=== PATIENT | female | born 1975 | race American Indian/Alaskan Native ===

== ENCOUNTER 2016-09-06 11:29 | Outpatient (CLI) | payer MEDICAID ==
--- NOTE | 2016-09-06 13:24 | XRay Report ---
LEFT SHOULDER: History: Shoulder pain, rotator cuff tear. Routine views demonstrate normal bony and soft tissue structures with normal joint alignment of the shoulder. IMPRESSION: Normal study.
--- NOTE | 2016-09-06 14:43 | XRay Report ---
Lumbar spine 4 views: History: Radiculopathy. Findings: Normal height of vertebral bodies and intervertebral discs. Normal articular surfaces. No fracture. No soft tissue calcification. Impression: No definite bony or articular abnormality lumbar spine.
== END 2016-09-06 11:30 | disposition home or self-care (01) ==
LOC: XRAY 11:29
PROVIDERS: ATTEND Physical Medicine & Rehabilitation Pain Medicine
DX: M54.16 Radiculopathy, lumbar region (principal); M75.102 Unspecified rotator cuff tear or rupture of left shoulder, not specified as traumatic
CPT/HCPCS: 72110

== ENCOUNTER 2017-03-13 23:23 | Emergency (ER) | payer MEDICAID ==
[2017-03-14 00:51] LABS: Basophils % (Auto) 0.4 % (0.0-1.8); Eosinophils % (Auto) 0.3 % (0.0-4.3); Hematocrit 32.9 % (30.3-42.9); Hemoglobin 10.5 gm/dl (10.1-14.3); Mean Corpuscular HGB Conc 32 % (30-34); Mean Corpuscular Hemoglobin 27 pg (28-32); Mean Corpuscular Volume 83 fl (79-97); Platelet Count 323 K/mm3 (140-440); Red Blood Count 3.96 M/mm3 (3.65-5.03); Red Cell Distribution Width 17.8 % (13.2-15.2); White Blood Count 9.1 K/mm3 (4.5-11.0)
[2017-03-14 01:02] LABS: Urine Drugs of Abuse Note Disclamer
[2017-03-14 01:06] LABS: Anion Gap 20 mmol/L; BUN/Creatinine Ratio 14.28; Blood Urea Nitrogen 10 mg/dL (7-17); Calcium 9.6 mg/dL (8.4-10.2); Carbon Dioxide 23 mmol/L (22-30); Chloride 100.9 mmol/L (98-107); Glucose 93 mg/dL (65-100); Potassium 3.7 mmol/L (3.6-5.0); Sodium 140 mmol/L (137-145)
[2017-03-14] MEDS ORDERED: VALIUM PO ONE (01:12)
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
[2017-03-14 01:27] LABS: Bilirubin,Urine SM (Negative); Blood,Urine NEG (Negative); Ketones,Urine TR mg/dL (Negative); Leukocyte Esterase,Urine NEG (Negative); Mucus,Urine 2+ /HPF; Nitrite,Urine NEG (Negative); Urobilinogen,Urine < 2.0 mg/dL (<2.0)
[2017-03-14 01:54] VITALS: BP 122/70
== END 2017-03-14 01:53 | disposition home or self-care (01) ==
LOC: ED 23:23
DX: F41.0 Panic disorder [episodic paroxysmal anxiety] (principal); R56.9 Unspecified convulsions; F32.9 Major depressive disorder, single episode, unspecified; D64.9 Anemia, unspecified; Z88.2 Allergy status to sulfonamides; Z88.8 Allergy status to other drugs, medicaments and biological substances
CPT/HCPCS: 36415; 80048; 80307; 81001; 82550; 85025; 99284; G0480; 80320

== ENCOUNTER 2018-02-23 13:53 | Emergency (ER) | payer MEDICAID ==
[2018-02-23] MEDS ORDERED: NACL 0.9% 1000 ML 1,000 ML IV ONE (15:46)
[2018-02-23 15:54] LABS: HCG Qualitative,Urine Negative (Negative)
[2018-02-23 15:57] LABS: Bilirubin,Urine NEG (Negative); Blood,Urine NEG (Negative); Color,Urine Yellow (Yellow); Mucus,Urine 1+ /HPF; Protein,Urine <15 mg/dL mg/dL (Negative); Urobilinogen,Urine < 2.0 mg/dL (<2.0)
[2018-02-23 16:03] LABS: Amphetamine Screen,Urine PRESUMPTIVE NEGATIVE; Cannabinoid Screen,Urine PRESUMPTIVE NEGATIVE; Cocaine Screen,Urine PRESUMPTIVE NEGATIVE; Methadone Screen,Urine PRESUMPTIVE NEGATIVE; Opiate Screen,Urine PRESUMPTIVE NEGATIVE
[2018-02-23 16:09] LABS: Benzodiazepines Screen,Urine PRESUMPTIVE POSITIVE
[2018-02-23 16:11] LABS: Hematocrit 30.1 % (30.3-42.9); Hemoglobin 9.4 gm/dl (10.1-14.3); Mean Corpuscular HGB Conc 31 % (30-34); Mean Corpuscular Volume 81 fl (79-97); Red Blood Count 3.71 M/mm3 (3.65-5.03)
[2018-02-23 16:15] LABS: Mean Corpuscular Hemoglobin 25 pg (28-32); Platelet Count 202 K/mm3 (140-440)
[2018-02-23 16:22] LABS: INR 0.97 (0.87-1.13)
[2018-02-23] MEDS ORDERED: MOTRIN PO ONE (16:25)
[2018-02-23 16:26] LABS: Alanine Aminotransferase 9 units/L (7-56); Albumin 4.6 g/dL (3.9-5); BUN/Creatinine Ratio 11; Blood Urea Nitrogen 8 mg/dL (7-17); Calcium 9.3 mg/dL (8.4-10.2); Hemolysis Index 6
[2018-02-23] MEDS ORDERED: K-DUR PO ONE (16:30)
[2018-02-23] MEDS ORDERED: TYLENOL PO ONE (16:42)
--- NOTE | 2018-02-23 17:11 | Emergency Department Report ---
ED General Adult HPI - General Chief complaint: Seizure Stated complaint: 5x SEIZURES BACK TO BACK Time Seen by Provider: 02/23/18 15:46 Source: patient, EMS Mode of arrival: Stretcher Limitations: No Limitations - History of Present Illness Initial comments: Ms Ibarra is a 42 year-old woman with PMH of lupus, lupus cerebritis, epilepsy who presents via EMS after reported seizure. per patient and her daughter, she had witnessed shaking episode at home. Per patient, she says she had five seizures. She reports left shoulder, left hip, coccyx and neck pain. Keeps asking for pain medication. Asking for benzodiazepines as well. I informed her this was not indicated. She reports being on trileptal for seizures. Has neurologist at [facility]. She later told me her neurologist is at [facility]. She has a pain management doctor as well. Per review of [facility] [facility] has 60 1mg xanax filled on 01/29 and 120 10mg oxycodone filled on 02/06. Severity scale (0 -10): 10 - Related Data Home Medications Medication Instructions Recorded Confirmed Last Taken ALPRAZolam [Alprazolam] 1 mg PO BID 03/14/17 03/14/17 Unknown Mirtazapine 15 mg PO QDAY 03/14/17 03/14/17 Unknown OXcarbazepine [Trileptal] 1,200 mg PO QHS 03/14/17 03/14/17 Unknown OXcarbazepine [Trileptal] 900 mg PO BID 03/14/17 03/14/17 Unknown Oxycodone HCl/Acetaminophen 1 each PO Q6HR PRN 03/14/17 03/14/17 Unknown [Percocet 10/325 mg] Venlafaxine HCl [Effexor Xr] 150 mg PO QDAY 03/14/17 03/14/17 Unknown predniSONE [Deltasone] 20 mg PO BID 03/14/17 03/14/17 Unknown Allergies Allergy/AdvReac Type Severity Reaction Status Date / Time Iodinated Contrast- Oral and Allergy Anaphylaxis Verified 03/03/15 14:31 IV Dye [Iodinated Contrast Media - IV Dye] NSAIDS (Non-Steroidal Allergy Unknown Verified 02/23/18 17:08 Anti-Inflamma Sulfa (Sulfonamide Allergy Hives Verified 03/03/15 14:31 Antibiotics) hydroxychloroquine sulfate AdvReac TEMP. Verified 03/03/15 14:31 [From Plaquenil] BLINDNESS ED Review of Systems ROS: Stated complaint: 5x SEIZURES BACK TO BACK Other details as noted in HPI Comment: All other systems reviewed and negative ED Past Medical Hx - Past Medical History Previous Medical History?: Yes Hx Renal Disease: Yes Hx Seizures: Yes Hx Psychiatric Treatment: Yes (DEPRESSION/INSOMNIA) Additional medical history: LUPUS. LUMBAR HERNIATION. 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 ANEMIA. INSOMNIA, ANXIETY - Surgical History Past Surgical History?: Yes Hx Cholecystectomy: Yes Additional Surgical History: TUBAL LIGATION. LUNG BIOPSY - Social History Smoking Status: Former Smoker Substance Use Type: Prescribed - Medications Home Medications: Home Medications Medication Instructions Recorded Confirmed Last Taken Type ALPRAZolam [Alprazolam] 1 mg PO BID 03/14/17 03/14/17 Unknown History Mirtazapine 15 mg PO QDAY 03/14/17 03/14/17 Unknown History OXcarbazepine [Trileptal] 1,200 mg PO QHS 03/14/17 03/14/17 Unknown History OXcarbazepine [Trileptal] 900 mg PO BID 03/14/17 03/14/17 Unknown History Oxycodone HCl/Acetaminophen 1 each PO Q6HR PRN 03/14/17 03/14/17 Unknown History [Percocet 10/325 mg] Venlafaxine HCl [Effexor Xr] 150 mg PO QDAY 03/14/17 03/14/17 Unknown History predniSONE [Deltasone] 20 mg PO BID 03/14/17 03/14/17 Unknown History ED Physical Exam - General Limitations: No Limitations General appearance: alert, anxious - Head Head exam: Present: atraumatic, normocephalic - Eye Eye exam: Present: normal appearance, PERRL, EOMI. Absent: nystagmus - ENT ENT exam: Present: normal exam, mucous membranes moist - Neck Neck exam: Present: normal inspection, tenderness, full ROM, other (diffuse cervical spinal ttp. no bruising, no swelling. full ROM). Absent: meningismus - Respiratory Respiratory exam: Present: normal lung sounds bilaterally. Absent: respiratory distress, chest wall tenderness, accessory muscle use - Cardiovascular Cardiovascular Exam: Present: regular rate, normal rhythm - GI/Abdominal GI/Abdominal exam: Present: soft. Absent: distended, tenderness, guarding - Extremities Exam Extremities exam: Present: other (Full ROM wrists, elbows, shoulders without pain. Pain with ROM of both hips, no reduction of ROM. Full ROM knees, ankles. 2 + radial and DP pulses. ) - Back Exam Back exam: Present: normal inspection. Absent: tenderness, CVA tenderness (R), CVA tenderness (L), paraspinal tenderness, vertebral tenderness - Neurological Exam Neurological exam: Present: alert, oriented X3, CN II-XII intact, other ( cerebellar exam normal. visual almonte intact bilaterally. ). Absent: motor sensory deficit - Psychiatric Psychiatric exam: Present: agitated, other (combative, argumentative) - Skin Skin exam: Present: warm, dry, intact ED Course Vital Signs 02/23/18 02/23/18 15:35 17:18 Temperature 98 F Pulse Rate 81 Respiratory 22 18 Rate Blood Pressure 115/75 O2 Sat by Pulse 100 Oximetry ED Medical Decision Making - Lab Data Result diagrams: 02/23/18 15:55 02/23/18 16:05 Lab Results 02/23/18 02/23/18 02/23/18 Range/Units 15:44 15:44 15:55 WBC 8.3 (4.5-11.0) K/mm3 RBC 3.71 (3.65-5.03) M/mm3 Hgb 9.4 L (10.1-14.3) gm/dl Hct 30.1 L (30.3-42.9) % MCV 81 (79-97) fl MCH 25 L (28-32) pg MCHC 31 (30-34) % RDW 18.0 H (13.2-15.2) % Plt Count 202 (140-440) K/mm3 PT (12.2-14.9) Sec. INR (0.87-1.13) Sodium (137-145) mmol/L Potassium (3.6-5.0) mmol/L Chloride (98-107) mmol/L Carbon Dioxide (22-30) mmol/L Anion Gap mmol/L BUN (7-17) mg/dL Creatinine (0.7-1.2) mg/dL Estimated GFR ml/min BUN/Creatinine Ratio % Glucose (65-100) mg/dL Calcium (8.4-10.2) mg/dL Total Bilirubin (0.1-1.2) mg/dL AST (5-40) units/L ALT (7-56) units/L Alkaline Phosphatase (35-129) units/L Total Creatine Kinase (30-135) units/L Total Protein (6.3-8.2) g/dL Albumin (3.9-5) g/dL Albumin/Globulin Ratio % Urine Color Yellow (Yellow) Urine Turbidity Clear (Clear) Urine pH 6.0 (5.0-7.0) Ur Specific Gallagher 1.014 (1.003-1.030) Urine Protein <15 mg/dl (Negative) mg/dL Urine Glucose (UA) Neg (Negative) mg/dL Urine Ketones Neg (Negative) mg/dL Urine Blood Neg (Negative) Urine Nitrite Neg (Negative) Ur Reducing Substances Not Reportable Urine Bilirubin Neg (Negative) Urine Ictotest Not Reportable Urine Urobilinogen < 2.0 (<2.0) mg/dL Ur Leukocyte Esterase Tr (Negative) Urine WBC (Auto) 2.0 (0.0-6.0) /HPF Urine RBC (Auto) 2.0 (0.0-6.0) /HPF U Epithel Cells (Auto) 4.0 (0-13.0) /HPF Urine Mucus 1+ /HPF Urine HCG, Qual Negative (Negative) Urine Opiates Screen Presumptive negative Urine Methadone Screen Presumptive negative Ur Barbiturates Screen Presumptive negative Ur Phencyclidine Scrn Presumptive negative Ur Amphetamines Screen Presumptive negative U Benzodiazepines Scrn Presumptive positive Urine Cocaine Screen Presumptive negative U Marijuana (THC) Screen Presumptive negative Drugs of Abuse Note Disclamer Plasma/Serum Alcohol (0-0.07) % 02/23/18 02/23/18 02/23/18 Range/Units 15:55 16:05 16:05 WBC (4.5-11.0) K/mm3 RBC (3.65-5.03) M/mm3 Hgb (10.1-14.3) gm/dl Hct (30.3-42.9) % MCV (79-97) fl MCH (28-32) pg MCHC (30-34) % RDW (13.2-15.2) % Plt Count (140-440) K/mm3 PT 13.4 (12.2-14.9) Sec. INR 0.97 (0.87-1.13) Sodium 140 (137-145) mmol/L Potassium 3.3 L (3.6-5.0) mmol/L Chloride 102.1 (98-107) mmol/L Carbon Dioxide 22 (22-30) mmol/L Anion Gap 19 mmol/L BUN 8 (7-17) mg/dL Creatinine 0.7 (0.7-1.2) mg/dL Estimated GFR > 60 ml/min BUN/Creatinine Ratio 11 % Glucose 98 (65-100) mg/dL Calcium 9.3 (8.4-10.2) mg/dL Total Bilirubin 0.40 (0.1-1.2) mg/dL AST 13 (5-40) units/L ALT 9 (7-56) units/L Alkaline Phosphatase 65 (35-129) units/L Total Creatine Kinase 102 (30-135) units/L Total Protein 7.8 (6.3-8.2) g/dL Albumin 4.6 (3.9-5) g/dL Albumin/Globulin Ratio 1.4 % Urine Color (Yellow) Urine Turbidity (Clear) Urine pH (5.0-7.0) Ur Specific Gallagher (1.003-1.030) Urine Protein (Negative) mg/dL Urine Glucose (UA) (Negative) mg/dL Urine Ketones (Negative) mg/dL Urine Blood (Negative) Urine Nitrite (Negative) Ur Reducing Substances Urine Bilirubin (Negative) Urine Ictotest Urine Urobilinogen (<2.0) mg/dL Ur Leukocyte Esterase (Negative) Urine WBC (Auto) (0.0-6.0) /HPF Urine RBC (Auto) (0.0-6.0) /HPF U Epithel Cells (Auto) (0-13.0) /HPF Urine Mucus /HPF Urine HCG, Qual (Negative) Urine Opiates Screen Urine Methadone Screen Ur Barbiturates Screen Ur Phencyclidine Scrn Ur Amphetamines Screen U Benzodiazepines Scrn Urine Cocaine Screen U Marijuana (THC) Screen Drugs of Abuse Note Plasma/Serum Alcohol (0-0.07) % 02/23/18 Range/Units 16:05 WBC (4.5-11.0) K/mm3 RBC (3.65-5.03) M/mm3 Hgb (10.1-14.3) gm/dl Hct (30.3-42.9) % MCV (79-97) fl MCH (28-32) pg MCHC (30-34) % RDW (13.2-15.2) % Plt Count (140-440) K/mm3 PT (12.2-14.9) Sec. INR (0.87-1.13) Sodium (137-145) mmol/L Potassium (3.6-5.0) mmol/L Chloride (98-107) mmol/L Carbon Dioxide (22-30) mmol/L Anion Gap mmol/L BUN (7-17) mg/dL Creatinine (0.7-1.2) mg/dL Estimated GFR ml/min BUN/Creatinine Ratio % Glucose (65-100) mg/dL Calcium (8.4-10.2) mg/dL Total Bilirubin (0.1-1.2) mg/dL AST (5-40) units/L ALT (7-56) units/L Alkaline Phosphatase (35-129) units/L Total Creatine Kinase (30-135) units/L Total Protein (6.3-8.2) g/dL Albumin (3.9-5) g/dL Albumin/Globulin Ratio % Urine Color (Yellow) Urine Turbidity (Clear) Urine pH (5.0-7.0) Ur Specific Gallagher (1.003-1.030) Urine Protein (Negative) mg/dL Urine Glucose (UA) (Negative) mg/dL Urine Ketones (Negative) mg/dL Urine Blood (Negative) Urine Nitrite (Negative) Ur Reducing Substances Urine Bilirubin (Negative) Urine Ictotest Urine Urobilinogen (<2.0) mg/dL Ur Leukocyte Esterase (Negative) Urine WBC (Auto) (0.0-6.0) /HPF Urine RBC (Auto) (0.0-6.0) /HPF U Epithel Cells (Auto) (0-13.0) /HPF Urine Mucus /HPF Urine HCG, Qual (Negative) Urine Opiates Screen Urine Methadone Screen Ur Barbiturates Screen Ur Phencyclidine Scrn Ur Amphetamines Screen U Benzodiazepines Scrn Urine Cocaine Screen U Marijuana (THC) Screen Drugs of Abuse Note Plasma/Serum Alcohol < 0.01 (0-0.07) % - Medical Decision Making Ms Ibarra is a 42 year-old woman who presents after reported seizure. Patient unable to tell me what happened, daughter says she had shaking episode for 1 minute and then 20 minutes was less responsive. patient then tells she she had 5 seizures. She is argumentative and uncooperative to exam. Keeps accusing staff of racial discrimination as we have not yet given her benzodiazepines or opiates. Exam with mild cervical spinal ttp, bilateral hip and coccyx tenderness. Neuro intact. Lab eval with mild hypoK. normal CK. Low suspicion of seizure. she has recorded me against hospital police and law. She is threatening towards staff and using foul language. She is threatening legal action if we do not give her pain medication. I have offered tylenol. Initially , ibuprofen was ordered, but she has an allergy that was later added into the chart. Ibuprofen was not given. I do not believe a CT scan is warranted. Story is inconsistent, normal neurologic exam andwith normal CK, i have a low suspicion she had a seizure or other intracranial abnormality. known seizure d/o , on trileptal. Have ordered EKG as well to eval for convulsive syncope. patient has signed out against medical advice. she is competent to make this decision in my opinion. understands risks of leaving. paperwork signed and in chart. Work-up has not been completed. Critical care attestation.: If time is entered above; I have spent that time in minutes in the direct care of this critically ill patient, excluding procedure time. ED Disposition Clinical Impression: Shaking Disposition: DC-07 LEFT AGAINST MED ADVICE Is pt being admited?: No Condition: Stable Instructions: Epilepsy (ED) Referrals: PRIMARY CARE, [Primary Care Provider] - 3-5 Days
[2018-02-23 17:49] VITALS: BP 139/57
== END 2018-02-23 17:49 | disposition left against medical advice (07) ==
LOC: ED 13:53
DX: R56.9 Unspecified convulsions (principal); M25.512 Pain in left shoulder; M25.552 Pain in left hip; M54.2 Cervicalgia; Z87.891 Personal history of nicotine dependence; Z90.49 Acquired absence of other specified parts of digestive tract; Z90.710 Acquired absence of both cervix and uterus; Z88.2 Allergy status to sulfonamides; Z88.8 Allergy status to other drugs, medicaments and biological substances; Z91.041 Radiographic dye allergy status
CPT/HCPCS: 36415; 80053; 80307; 81001; 81025; 82550; 85027; 85610; 99284; G0480; 80320

== ENCOUNTER 2019-04-02 01:51 | Observation (INO) | payer MEDICAID ==
[2019-04-02] MEDS ORDERED: NACL 0.9% 1000 ML 1,000 ML ONE (02:10)
[2019-04-02] MEDS ORDERED: NACL 0.9% 1000 ML 1,000 ML IV ONE ×3 (02:21→13:00)
[2019-04-02 03:03] LABS: Basophils # (Auto) 0.1 K/mm3 (0.0-0.1); Basophils % (Auto) 0.8 % (0.0-1.8); Eosinophils # (Auto) 0.1 K/mm3 (0.0-0.4); Eosinophils % (Auto) 1.1 % (0.0-4.3); Hematocrit 27.8 % (30.3-42.9); Hemoglobin 8.8 gm/dl (10.1-14.3); Lymphocytes # (Auto) 1.6 K/mm3 (1.2-5.4); Lymphocytes % (Auto) 21.1 % (13.4-35.0); Mean Corpuscular HGB Conc 32 % (30-34); Mean Corpuscular Volume 82 fl (79-97); Monocytes # (Auto) 0.7 K/mm3 (0.0-0.8); Monocytes % (Auto) 9.2 % (0.0-7.3); Platelet Count 384 K/mm3 (140-440); Red Blood Count 3.38 M/mm3 (3.65-5.03); Red Cell Distribution Width 16.4 % (13.2-15.2)
[2019-04-02 03:41] LABS: Alanine Aminotransferase 15 units/L (7-56); Albumin 3.8 g/dL (3.9-5); BUN/Creatinine Ratio 14; Blood Urea Nitrogen 10 mg/dL (7-17); Calcium 8.6 mg/dL (8.4-10.2); Hemolysis Index 54
[2019-04-02] MEDS ORDERED: ZOFRAN IV ONE (05:10)
--- NOTE | 2019-04-02 05:12 | Emergency Department Report ---
History of Present Illness - General Chief Complaint: Altered Mental Status Stated Complaint: OVERDOSE Time Seen by Provider: 04/02/19 03:03 Source: EMS, RN notes reviewed, old records reviewed Mode of arrival: Stretcher Limitations: Altered Mental Status - History of Present Illness Initial Comments: 43-year-old female with past medical history of depression, lupus, seizures, anxiety, insomnia, and previous tubal ligation and cholecystectomy presents to the hospital with complaints of overdose. Patient took 4 Trileptal 300 mg pills at approximately 9 or 10 PM. It is unclear to time it was accidental or purposeful. Daughter found patient lethargic and stumbling in the house and therefore she called EMS. Upon arrival patient responds to verbal and tactile stimuli is only oriented to self and is drowsy. As per RN note: Spoke with [facility] at [place] [facility]. States to monitor CBC with platelets, CMP, acetaminophen, salicylate, blood alcohol levels. Potential for hyponatremia, n/v, abnormal vision, SURFACE [employer] depression, and seizure. States to treat seizures with benzos. Activated charcoal was not recommended - Related Data Home Medications Medication Instructions Recorded Confirmed Last Taken ALPRAZolam [Alprazolam] 1 mg PO BID 03/14/17 03/14/17 Unknown Mirtazapine 15 mg PO QDAY 03/14/17 03/14/17 Unknown OXcarbazepine [Trileptal] 1,200 mg PO QHS 03/14/17 03/14/17 Unknown OXcarbazepine [Trileptal] 900 mg PO BID 03/14/17 03/14/17 Unknown Oxycodone HCl/Acetaminophen 1 each PO Q6HR PRN 03/14/17 03/14/17 Unknown [Percocet 10/325 mg] Venlafaxine HCl [Effexor Xr] 150 mg PO QDAY 03/14/17 03/14/17 Unknown predniSONE [Deltasone] 20 mg PO BID 03/14/17 03/14/17 Unknown Allergies Allergy/AdvReac Type Severity Reaction Status Date / Time Iodinated Contrast- Oral and Allergy Anaphylaxis Verified 03/03/15 14:31 IV Dye [Iodinated Contrast Media - IV Dye] NSAIDS (Non-Steroidal Allergy Unknown Verified 02/23/18 17:08 Anti-Inflamma Sulfa (Sulfonamide Allergy Hives Verified 03/03/15 14:31 Antibiotics) hydroxychloroquine sulfate AdvReac TEMP. Verified 03/03/15 14:31 [From Plaquenil] BLINDNESS ED Review of Systems ROS: Stated complaint: OVERDOSE Other details as noted in HPI Comment: Unobtainable due to pts medical conditions ED Past Medical Hx - Past Medical History Previous Medical History?: Yes Hx Renal Disease: Yes Hx Seizures: Yes Hx Psychiatric Treatment: Yes (DEPRESSION/INSOMNIA) Additional medical history: LUPUS. LUMBAR HERNIATION. 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 ANEMIA. INSOMNIA, ANXIETY - Surgical History Hx Cholecystectomy: Yes Additional Surgical History: TUBAL LIGATION. LUNG BIOPSY - Social History Smoking Status: Never Smoker Substance Use Type: None - Medications Home Medications: Home Medications Medication Instructions Recorded Confirmed Last Taken Type ALPRAZolam [Alprazolam] 1 mg PO BID 03/14/17 03/14/17 Unknown History Mirtazapine 15 mg PO QDAY 03/14/17 03/14/17 Unknown History OXcarbazepine [Trileptal] 1,200 mg PO QHS 03/14/17 03/14/17 Unknown History OXcarbazepine [Trileptal] 900 mg PO BID 03/14/17 03/14/17 Unknown History Oxycodone HCl/Acetaminophen 1 each PO Q6HR PRN 03/14/17 03/14/17 Unknown History [Percocet 10/325 mg] Venlafaxine HCl [Effexor Xr] 150 mg PO QDAY 03/14/17 03/14/17 Unknown History predniSONE [Deltasone] 20 mg PO BID 03/14/17 03/14/17 Unknown History ED Physical Exam - General Limitations: Altered Mental Status - Other Other exam information: General: No acute distress Eyes: Normal appearance, pupils equal reactive to light, extraocular movements intact ENT: Normal oropharynx Neck: Normal appearance, no C-spine tenderness, no meningismus Chest: Clear to auscultation bilaterally, no wheezes, rales, or crackles Cardiovascular: Regular rate and rhythm Abdomen: Soft, nondistended, nontender, no rebound or guarding, normal bowel sounds Back: Normal inspection, nontender Extremity: Normal inspection, no deformity, full range of motion Neuro: Drowsy, responsive to tactile stimuli, oriented else. Moves all extremities equally without deficit. Sensation grossly intact Skin: No rash, once, or erythema ED Course Vital Signs 04/02/19 04/02/1919 02:08 02:17 02:30 Temperature 98.9 F Pulse Rate 94 H 96 H 97 H Respiratory 18 17 21 Rate Blood Pressure 96/49 93/48 96/48 O2 Sat by Pulse 97 95 97 Oximetry 04/02/19 04/02/19 04/02/19 03:00 03:15 03:30 Temperature Pulse Rate 93 H 88 88 Respiratory 24 15 22 Rate Blood Pressure 86/42 96/50 86/46 O2 Sat by Pulse 98 96 95 Oximetry 04/02/19 04/02/19 03:45 04:15 Temperature Pulse Rate 90 82 Respiratory 18 11 L Rate Blood Pressure 106/56 81/33 O2 Sat by Pulse 100 97 Oximetry - Reevaluation(s) Reevaluation #1: 04/02/19 05:12 BP improved after initial IV fluid bolus of normal saline. Patient began to vomit at this time there for Zofran 4 mg provided ED Medical Decision Making - Lab Data Result diagrams: 04/02/19 02:29 04/02/19 02:29 Lab Results 04/02/19 04/02/19 04/02/19 Range/Units 02:29 02:29 02:29 WBC 7.7 (4.5-11.0) K/mm3 RBC 3.38 L (3.65-5.03) M/mm3 Hgb 8.8 L (10.1-14.3) gm/dl Hct 27.8 L (30.3-42.9) % MCV 82 (79-97) fl MCH 26 L (28-32) pg MCHC 32 (30-34) % RDW 16.4 H (13.2-15.2) % Plt Count 384 (140-440) K/mm3 Lymph % (Auto) 21.1 (13.4-35.0) % [place] % (Auto) 9.2 H (0.0-7.3) % Eos % (Auto) 1.1 (0.0-4.3) % Baso % (Auto) 0.8 (0.0-1.8) % Lymph # 1.6 (1.2-5.4) K/mm3 [place] # 0.7 (0.0-0.8) K/mm3 Eos # 0.1 (0.0-0.4) K/mm3 Baso # 0.1 (0.0-0.1) K/mm3 Seg Neutrophils % 67.8 (40.0-70.0) % Seg Neutrophils # 5.2 (1.8-7.7) K/mm3 Sodium (137-145) mmol/L Potassium (3.6-5.0) mmol/L Chloride (98-107) mmol/L Carbon Dioxide (22-30) mmol/L Anion Gap mmol/L BUN (7-17) mg/dL Creatinine (0.7-1.2) mg/dL Estimated GFR ml/min BUN/Creatinine Ratio % Glucose (65-100) mg/dL Calcium (8.4-10.2) mg/dL Magnesium (1.7-2.3) mg/dL Total Bilirubin (0.1-1.2) mg/dL AST (5-40) units/L ALT (7-56) units/L Alkaline Phosphatase (35-129) units/L Total Protein (6.3-8.2) g/dL Albumin (3.9-5) g/dL Albumin/Globulin Ratio % Salicylates < 0.3 L (2.8-20.0) mg/dL Acetaminophen < 5.0 L (10.0-30.0) ug/mL Plasma/Serum Alcohol (0-0.07) % 04/02/19 04/02/19 04/02/19 Range/Units 02:29 02:29 02:29 WBC (4.5-11.0) K/mm3 RBC (3.65-5.03) M/mm3 Hgb (10.1-14.3) gm/dl Hct (30.3-42.9) % MCV (79-97) fl MCH (28-32) pg MCHC (30-34) % RDW (13.2-15.2) % Plt Count (140-440) K/mm3 Lymph % (Auto) (13.4-35.0) % [place] % (Auto) (0.0-7.3) % Eos % (Auto) (0.0-4.3) % Baso % (Auto) (0.0-1.8) % Lymph # (1.2-5.4) K/mm3 [place] # (0.0-0.8) K/mm3 Eos # (0.0-0.4) K/mm3 Baso # (0.0-0.1) K/mm3 Seg Neutrophils % (40.0-70.0) % Seg Neutrophils # (1.8-7.7) K/mm3 Sodium 142 (137-145) mmol/L Potassium 3.2 L (3.6-5.0) mmol/L Chloride 107.3 H (98-107) mmol/L Carbon Dioxide 20 L (22-30) mmol/L Anion Gap 18 mmol/L BUN 10 (7-17) mg/dL Creatinine 0.7 (0.7-1.2) mg/dL Estimated GFR > 60 ml/min BUN/Creatinine Ratio 14 % Glucose 122 H (65-100) mg/dL Calcium 8.6 (8.4-10.2) mg/dL Magnesium 2.00 (1.7-2.3) mg/dL Total Bilirubin 0.20 (0.1-1.2) mg/dL AST 24 (5-40) units/L ALT 15 (7-56) units/L Alkaline Phosphatase 57 (35-129) units/L Total Protein 7.0 (6.3-8.2) g/dL Albumin 3.8 L (3.9-5) g/dL Albumin/Globulin Ratio 1.2 % Salicylates (2.8-20.0) mg/dL Acetaminophen (10.0-30.0) ug/mL Plasma/Serum Alcohol < 0.01 (0-0.07) % - EKG Data -: EKG Interpreted by Nd EKG shows normal: sinus rhythm, axis (qrs 45), QRS complexes (qrsd 92), ST-T waves (no stemi/t inv) Rate: normal (90) - Medical Decision Making Pt took 4 Trileptal pills at 9 or 10 PM. At time is unclear if patient was intending to overdose sx in ed drowsy, n,v and hypotension bp improved with NS zofran for nausea pt remains drowsy without seizure activity plan to admit for further obs 1013 signed. - Differential Diagnosis overdose, suicidal, accidental overdose Critical Care Time: No Critical care attestation.: If time is entered above; I have spent that time in minutes in the direct care of this critically ill patient, excluding procedure time. ED Disposition Clinical Impression: Overdose, Lethargic Disposition: DC- OP ADMIT IP TO THIS HOSP Is pt being admited?: Yes Condition: Stable Time of Disposition: 05:12 (Dr olea/hosp)
[2019-04-02] MEDS ORDERED: ZOFRAN ONE (05:13)
[2019-04-02] MEDS ORDERED: SODIUM CHLORIDE FLUSH SYRINGE 10 ML IV PRN (05:58)
[2019-04-02] MEDS ORDERED: PERCOCET 5/325 PO PRN (05:58)
[2019-04-02] MEDS ORDERED: TYLENOL PO PRN (05:58)
[2019-04-02] MEDS ORDERED: KCL 40 MEQ in NACL 0.45% 500 ML IV SCH (06:00)
--- NOTE | 2019-04-02 06:00 | History and Physical Report ---
History of Present Illness Chief complaint: Brought in by daughter for ingesting too many pills at home History of present illness: 43-year-old woman who was brought in by her daughter after she was found lethargic and stumbling around the house. She had taken for Trileptal pills. It was unclear what her motivation to do so was at that time. In the ER patient is only drowsy, only responsive to verbal and tactile stimuli confused and only oriented to self. Patient received normal saline the ER after which she began to vomit just treated with antiemetics Past medical history; SLE, major depression, seizure disorder, anxiety, insomnia, lumbar disc herniation at C4 to C6, Past surgical history tubal ligation and cholecystectomy, lung biopsy next Social history; never smoker Family history; mood disorder Medications and Allergies Allergies Allergy/AdvReac Type Severity Reaction Status Date / Time Iodinated Contrast- Oral and Allergy Anaphylaxis Verified 03/03/15 14:31 IV Dye [Iodinated Contrast Media - IV Dye] NSAIDS (Non-Steroidal Allergy Unknown Verified 02/23/18 17:08 Anti-Inflamma Sulfa (Sulfonamide Allergy Hives Verified 03/03/15 14:31 Antibiotics) hydroxychloroquine sulfate AdvReac TEMP. Verified 03/03/15 14:31 [From Plaquenil] BLINDNESS Home Medications Medication Instructions Recorded Confirmed Last Taken Type ALPRAZolam [Alprazolam] 1 mg PO BID 03/14/17 03/14/17 Unknown History Mirtazapine 15 mg PO QDAY 03/14/17 03/14/17 Unknown History OXcarbazepine [Trileptal] 1,200 mg PO QHS 03/14/17 03/14/17 Unknown History OXcarbazepine [Trileptal] 900 mg PO BID 03/14/17 03/14/17 Unknown History Oxycodone HCl/Acetaminophen 1 each PO Q6HR PRN 03/14/17 03/14/17 Unknown History [Percocet 10/325 mg] Venlafaxine HCl [Effexor Xr] 150 mg PO QDAY 03/14/17 03/14/17 Unknown History predniSONE [Deltasone] 20 mg PO BID 03/14/17 03/14/17 Unknown History Active Meds: Active Medications Sodium Chloride (Nacl 0.9% 1000 Ml) 1,000 mls @ 999 mls/hr IV BOLUS ONE Stop: 04/02/19 06:10 Review of Systems Constitutional: fatigue Ears, nose, mouth and throat: no ear pain Cardiovascular: no chest pain Respiratory: no cough Gastrointestinal: no abdominal pain Genitourinary Female: no urinary frequency Rectal: no pain Musculoskeletal: no neck stiffness Integumentary: no rash Neurological: no head injury Psychiatric: no anxiety Endocrine: no cold intolerance Hematologic/Lymphatic: no easy bruising Allergic/Immunologic: no urticaria Exam - Constitutional Vitals: Temp Pulse Resp BP Pulse Ox 98.9 F 82 11 L 81/33 97 04/02/19 02:08 04/02/19 04:15 04/02/19 04:15 04/02/19 04:15 04/02/19 04:15 General appearance: Present: no acute distress, well-nourished - EENT Eyes: Present: PERRL ENT: hearing intact, clear oral mucosa - Neck Neck: Present: supple, normal ROM - Respiratory Respiratory effort: normal Respiratory: bilateral: CTA - Cardiovascular Heart Sounds: Present: S1 & S2. Absent: rub, click - Extremities Extremities: pulses symmetrical, No edema Peripheral Pulses: within normal limits - Abdominal General gastrointestinal: Present: soft, non-tender, non-distended, normal bowel sounds Female genitourinary: Present: normal - Integumentary Integumentary: Present: clear, warm, dry - Musculoskeletal Musculoskeletal: gait normal, strength equal bilaterally - Psychiatric Psychiatric: other (lethargic and somnolent) - Neurologic Neurologic: CNII-XII intact, moves all extremities Results - Labs CBC & Chem 7: 04/02/19 02:29 04/02/19 02:29 Labs: Laboratory Last Values WBC 7.7 K/mm3 (4.5-11.0) 04/02/19 02:29 RBC 3.38 M/mm3 (3.65-5.03) L 04/02/19 02:29 Hgb 8.8 gm/dl (10.1-14.3) L 04/02/19 02:29 Hct 27.8 % (30.3-42.9) L 04/02/19 02:29 MCV 82 fl (79-97) 04/02/19 02:29 MCH 26 pg (28-32) L 04/02/19 02:29 MCHC 32 % (30-34) 04/02/19 02:29 RDW 16.4 % (13.2-15.2) H 04/02/19 02:29 Plt Count 384 K/mm3 (140-440) 04/02/19 02:29 Lymph % (Auto) 21.1 % (13.4-35.0) 04/02/19 02:29 [place] % (Auto) 9.2 % (0.0-7.3) H 04/02/19 02:29 Eos % (Auto) 1.1 % (0.0-4.3) 04/02/19 02:29 Baso % (Auto) 0.8 % (0.0-1.8) 04/02/19 02:29 Lymph # 1.6 K/mm3 (1.2-5.4) 04/02/19 02:29 [place] # 0.7 K/mm3 (0.0-0.8) 04/02/19 02:29 Eos # 0.1 K/mm3 (0.0-0.4) 04/02/19 02:29 Baso # 0.1 K/mm3 (0.0-0.1) 04/02/19 02:29 Seg Neutrophils % 67.8 % (40.0-70.0) 04/02/19 02:29 Seg Neutrophils # 5.2 K/mm3 (1.8-7.7) 04/02/19 02:29 Sodium 142 mmol/L (137-145) 04/02/19 02:29 Potassium 3.2 mmol/L (3.6-5.0) L 04/02/19 02:29 Chloride 107.3 mmol/L (98-107) H 04/02/19 02:29 Carbon Dioxide 20 mmol/L (22-30) L 04/02/19 02:29 18 mmol/L 04/02/19 02:29 BUN 10 mg/dL (7-17) 04/02/19 02:29 0.7 mg/dL (0.7-1.2) 04/02/19 02:29 Estimated GFR > 60 ml/min 04/02/19 02:29 14 % 04/02/19 02:29 Glucose 122 mg/dL (65-100) H 04/02/19 02:29 Calcium 8.6 mg/dL (8.4-10.2) 04/02/19 02:29 Magnesium 2.00 mg/dL (1.7-2.3) 04/02/19 02:29 0.20 mg/dL (0.1-1.2) 04/02/19 02:29 AST 24 units/L (5-40) 04/02/19 02:29 ALT 15 units/L (7-56) 04/02/19 02:29 57 units/L (35-129) 04/02/19 02:29 7.0 g/dL (6.3-8.2) 04/02/19 02:29 3.8 g/dL (3.9-5) L 04/02/19 02:29 1.2 % 04/02/19 02:29 Salicylates < 0.3 mg/dL (2.8-20.0) L 04/02/19 02:29 Acetaminophen < 5.0 ug/mL (10.0-30.0) L 04/02/19 02:29 Plasma/Serum Alcohol < 0.01 % (0-0.07) 04/02/19 02:29 Assessment and Plan Assessment and plan: 43-year-old woman was admitted after drug overdose, at this point is suspected that she took excessive Trileptal pills, unclear what her motivation was Drug overdose/ acute toxic encephalopathy Continue management per poison control, sedative home meds on hold in meantime as she is still somnolent Preventative health counseling performed for 17 minutes Suicidal ideation? Mental health consult, 1013 Seizure disorder, SLE, cont steroids, give benzos as needed for seizure per poison control Hypokalemia Replace Nausea /vomiting Antiemetics as needed DVT prophylaxis with Lovenox
[2019-04-02 09:49] LABS: Bilirubin,Urine NEG (Negative); Blood,Urine NEG (Negative); Color,Urine Yellow (Yellow); Mucus,Urine FEW /HPF; Protein,Urine <15 mg/dL mg/dL (Negative); Urobilinogen,Urine < 2.0 mg/dL (<2.0)
[2019-04-02 09:50] LABS: HCG Qualitative,Urine Negative (Negative)
[2019-04-02 10:09] LABS: Amphetamine Screen,Urine PRESUMPTIVE NEGATIVE; Cocaine Screen,Urine PRESUMPTIVE NEGATIVE; Methadone Screen,Urine PRESUMPTIVE NEGATIVE; Opiate Screen,Urine PRESUMPTIVE NEGATIVE
[2019-04-02 10:23] LABS: Benzodiazepines Screen,Urine PRESUMPTIVE POSITIVE; Cannabinoid Screen,Urine PRESUMPTIVE POSITIVE
[2019-04-02] MEDS: ZOFRAN IV PRN ×2 (12:46→22:53)
[2019-04-02] MEDS ORDERED: TYLENOL PR PRN (13:12)
[2019-04-02] MEDS: LOVENOX SUB-Q SCH (13:41)
[2019-04-02] MEDS: LEVAQUIN 750MG/150ML 750 MG/150 ML BAG IV SCH (15:09)
--- NOTE | 2019-04-02 15:22 | XRay Report ---
CHEST 1 VIEW INDICATION: SHORTNESS OF BREATH. COMPARISON: None FINDINGS: Support devices: None. Heart: Mild cardiomegaly Lungs/Pleura: Mild pulmonary venous congestion is identified. No consolidation, pleural effusion or p neumothorax. The bony structures are grossly intact. Additional findings: None. IMPRESSION: Mild cardiomegaly and pulmonary venous congestion but no CHF. Signer Name: Margarito López Jr, MD Signed: 04/02/2019 3:18 PM Workstation Name: [id number]
[2019-04-02] MEDS: SODIUM CHLORIDE FLUSH SYRINGE 10 ML IV SCH ×2 (15:59→22:23)
[2019-04-02] MEDS: DELTASONE PO SCH ×2 (17:14→22:21)
[2019-04-02] MEDS: EFFEXOR XR PO SCH (17:14)
--- NOTE | 2019-04-02 22:53 | Progress Note ---
Assessment and Plan Assessment and plan: 43-year-old woman was admitted after drug overdose, at this point is suspected that she took excessive Trileptal pills, unclear what her motivation was Drug overdose/ acute toxic encephalopathy Continue management per poison control, Doubt intentional overdose. We'll await psych consult. Patient likely can be discharged today if more awake following cycle Yogi Suicidal ideation? Mental health consult, 1013 Seizure disorder, SLE, cont steroids, give benzos as needed for seizure per poison control Hypokalemia Replace Nausea /vomiting Antiemetics as needed DVT prophylaxis with Lovenox History Interval history: Patient seen and examined, awakens to voice, denies suicidal ideation. Daughter at bedside,. still lethargic Hospitalist Physical - Physical exam Narrative exam: VITAL SIGNS: Reviewed. GENERAL: The patient appears normally developed, Vital signs as documented. HEAD: No signs of head trauma. EYES: Pupils are equal. Extraocular motions intact. EARS: Hearing grossly intact. MOUTH: Oropharynx is normal. NECK: No adenopathy, no JVD. CHEST: Chest with clear breath sounds bilaterally. No wheezes, rales, or rhonchi. CARDIAC: Regular rate and rhythm. S1 and S2, without murmurs, gallops, or rubs. VASCULAR: No Edema. Peripheral pulses normal and equal in all extremities. ABDOMEN: Soft, non tender and non distended. No rebound or guarding, and no masses palpated. Bowel Sounds normal. MUSCULOSKELETAL: Good range of motion of all major joints. Extremities without clubbing, cyanosis or edema. NEUROLOGIC EXAM: Awake but lethargic and oriented x 3 No focal sensory or strength deficits. Speech normal. Follows commands. PSYCHIATRIC: Mood normal. SKIN: detail exam as documented in skin assessment - Constitutional Vitals: Temp Pulse Resp BP Pulse Ox 98 F 89 20 100/61 99 04/02/19 22:18 04/02/19 22:18 04/02/19 22:18 04/02/19 22:18 04/02/19 22:18 General appearance: Present: no acute distress, well-nourished Results - Labs CBC & Chem 7: 04/02/19 02:29 04/03/19 06:58 Labs: Laboratory Last Values WBC 7.7 K/mm3 (4.5-11.0) 04/02/19 02:29 RBC 3.38 M/mm3 (3.65-5.03) L 04/02/19 02:29 Hgb 8.8 gm/dl (10.1-14.3) L 04/02/19 02:29 Hct 27.8 % (30.3-42.9) L 04/02/19 02:29 MCV 82 fl (79-97) 04/02/19 02:29 MCH 26 pg (28-32) L 04/02/19 02:29 MCHC 32 % (30-34) 04/02/19 02:29 RDW 16.4 % (13.2-15.2) H 04/02/19 02:29 Plt Count 384 K/mm3 (140-440) 04/02/19 02:29 Lymph % (Auto) 21.1 % (13.4-35.0) 04/02/19 02:29 [place] % (Auto) 9.2 % (0.0-7.3) H 04/02/19 02:29 Eos % (Auto) 1.1 % (0.0-4.3) 04/02/19 02:29 Baso % (Auto) 0.8 % (0.0-1.8) 04/02/19 02:29 Lymph # 1.6 K/mm3 (1.2-5.4) 04/02/19 02:29 [place] # 0.7 K/mm3 (0.0-0.8) 04/02/19 02:29 Eos # 0.1 K/mm3 (0.0-0.4) 04/02/19 02:29 Baso # 0.1 K/mm3 (0.0-0.1) 04/02/19 02:29 Seg Neutrophils % 67.8 % (40.0-70.0) 04/02/19 02:29 Seg Neutrophils # 5.2 K/mm3 (1.8-7.7) 04/02/19 02:29 Sodium 142 mmol/L (137-145) 04/02/19 02:29 Potassium 3.2 mmol/L (3.6-5.0) L 04/02/19 02:29 Chloride 107.3 mmol/L (98-107) H 04/02/19 02:29 Carbon Dioxide 20 mmol/L (22-30) L 04/02/19 02:29 18 mmol/L 04/02/19 02:29 BUN 10 mg/dL (7-17) 04/02/19 02:29 0.7 mg/dL (0.7-1.2) 04/02/19 02:29 Estimated GFR > 60 ml/min 04/02/19 02:29 14 % 04/02/19 02:29 Glucose 122 mg/dL (65-100) H 04/02/19 02:29 Lactic Acid 2.10 mmol/L (0.7-2.0) H* 04/02/19 20:38 Calcium 8.6 mg/dL (8.4-10.2) 04/02/19 02:29 Magnesium 2.00 mg/dL (1.7-2.3) 04/02/19 02:29 0.20 mg/dL (0.1-1.2) 04/02/19 02:29 AST 24 units/L (5-40) 04/02/19 02:29 ALT 15 units/L (7-56) 04/02/19 02:29 57 units/L (35-129) 04/02/19 02:29 7.0 g/dL (6.3-8.2) 04/02/19 02:29 3.8 g/dL (3.9-5) L 04/02/19 02:29 1.2 % 04/02/19 02:29 Yellow (Yellow) 04/02/19 09:36 Clear (Clear) 04/02/19 09:36 5.0 (5.0-7.0) 04/02/19 09:36 Ur Specific [place] 1.012 (1.003-1.030) 04/02/19 09:36 <15 mg/dl mg/dL (Negative) 04/02/19 09:36 Neg mg/dL (Negative) 04/02/19 09:36 Neg mg/dL (Negative) 04/02/19 09:36 Neg (Negative) 04/02/19 09:36 Neg (Negative) 04/02/19 09:36 Neg (Negative) 04/02/19 09:36 < 2.0 mg/dL (<2.0) 04/02/19 09:36 Ur Leukocyte Esterase Tr (Negative) 04/02/19 09:36 4.0 /HPF (0.0-6.0) 04/02/19 09:36 2.0 /HPF (0.0-6.0) 04/02/19 09:36 Few /HPF 04/02/19 09:36 Urine HCG, Qual Negative (Negative) 04/02/19 09:36 Salicylates < 0.3 mg/dL (2.8-20.0) L 04/02/19 02:29 Presumptive negative 04/02/19 09:36 Presumptive negative 04/02/19 09:36 Acetaminophen < 5.0 ug/mL (10.0-30.0) L 04/02/19 02:29 Ur Barbiturates Screen Presumptive negative 04/02/19 09:36 Ur Phencyclidine Scrn Presumptive negative 04/02/19 09:36 Ur Amphetamines Screen Presumptive negative 04/02/19 09:36 U Benzodiazepines Scrn Presumptive positive 04/02/19 09:36 Presumptive negative 04/02/19 09:36 U Marijuana (THC) Screen Presumptive positive 04/02/19 09:36 Disclamer 04/02/19 09:36 Plasma/Serum Alcohol < 0.01 % (0-0.07) 04/02/19 02:29 Active Medications - Current Medications Current Medications: Generic Name Dose Route Start Last Admin Trade Name Freq PRN Reason Stop Dose Admin Acetaminophen 650 mg 04/02/19 05:58 Tylenol PO Q4H PRN Pain MILD(1-3)/Fever >100.5/FRIEND Acetaminophen 650 mg 04/02/19 13:12 04/02/19 13:43 Tylenol NE 650 mg Q6H PRN Administration Pain, Mild (1-3) Enoxaparin Sodium 40 mg 04/02/19 10:00 04/02/19 13:41 Lovenox SUB-Q 40 mg QDAY SHAYNE Administration Levofloxacin/Dextrose 750 mg in 150 mls @ 100 mls/hr 04/02/19 15:00 04/02/19 15:09 Levaquin 750mg/150ml IV 100 mls/hr Q24HR SHAYNE Administration Protocol Ondansetron HCl 4 mg 04/02/19 05:58 04/02/19 12:46 Zofran IV 4 mg Q8H PRN Administration Nausea And Vomiting Oxycodone HCl 5 mg 04/02/19 06:21 Roxicodone PO Q6H PRN Pain, Moderate (4-6) Oxycodone/Acetaminophen 1 tab 04/02/19 05:58 Percocet 5/325 PO Q6H PRN Pain(4-6) Prednisone 20 mg 04/02/19 10:00 04/02/19 22:21 Deltasone PO Not Given BID SHAYNE Sodium Chloride 10 ml 04/02/19 10:00 04/02/19 22:23 Sodium Chloride Flush Syringe 10 Ml IV 10 ml BID SHAYNE Administration Sodium Chloride 10 ml 04/02/19 05:58 Sodium Chloride Flush Syringe 10 Ml IV PRN PRN LINE FLUSH Venlafaxine HCl 150 mg 04/02/19 10:00 04/02/19 17:14 Effexor Xr PO Not Given QDAY SHAYNE
--- NOTE | 2019-04-02 22:55 | Event Note ---
Date: 04/02/19 Patient seen and examined, more awake now, unable to calculate her medications as she is reusing the same pill bottle. Counselling provided. she still get drowsy a little bit. continue current tx for SIRS without spesis. obtain blood clutures, urinenalysis, repeat lactic acid
[2019-04-03] MEDS: ZOFRAN IV PRN (05:53)
[2019-04-03] MEDS: ROXICODONE PO PRN ×3 (07:01→20:41)
[2019-04-03 07:29] LABS: BUN/Creatinine Ratio 10; Blood Urea Nitrogen 8 mg/dL (7-17); Calcium 8.5 mg/dL (8.4-10.2); Hemolysis Index 0
[2019-04-03] MEDS: EFFEXOR XR PO SCH (10:08)
[2019-04-03] MEDS: LEVAQUIN 750MG/150ML 750 MG/150 ML BAG IV SCH (10:09)
[2019-04-03] MEDS: DELTASONE PO SCH (10:09)
[2019-04-03] MEDS: LOVENOX SUB-Q SCH (10:09)
[2019-04-03] MEDS: SODIUM CHLORIDE FLUSH SYRINGE 10 ML IV SCH (10:17)
--- NOTE | 2019-04-03 12:09 | Discharge Summary ---
Providers - Providers Date of Admission: 04/02/19 05:58 Attending physician: HUGH PHELPS MD 04/02/19 06:00 Consult to Mental Health [CONS] Routine Reason For Exam: behavioral disturbance Place consult to:: [facility] Notified:: ROLDAN Phone number called:: [phone] Was contact made?: Yes If yes, spoke with:: ROLDAN Time called:: 12:33 Comment:: JOSE NOTIFIED Primary care physician: KERRY LUNA Hospitalization Condition: Stable Disposition: DC-01 TO HOME OR SELFCARE Exam - Constitutional Vitals: Temp Pulse Resp BP Pulse Ox 98.2 F 89 18 103/57 99 04/03/19 05:02 04/03/19 05:02 04/03/19 07:01 04/03/19 05:02 04/03/19 05:02 Plan Activity: advance as tolerated, fall precautions Diet: low fat Additional Instructions: Discuss with your neurologist about your medication doseage. Use approprate bottles with most upto date label so there is no confusion. Follow up with: KERRY LUNA MD [Primary Care Provider] - 7 Days
[2019-04-03] MEDS ORDERED: REGLAN IV PRN (14:19)
--- NOTE | 2019-04-03 16:11 | Consultation ---
History of Present Illness - Reason for Consult Consult date: 04/03/19 Reason for consult: Mental Health Evaluation Requesting physician: DASHAWN WORLEY - Chief Complaint Chief complaint: "My Trileptal dose was increased" - History of Present Psychiatric Illness 43-year-old AA female who presented to the ER for AMS and possible overdose. Today the patient was calm and cooperative during the assessment. She stated that her Trileptal dose for seizures was increased recently. She stated that she cannot remember everything about what went on with her prior to coming to the ER. She is adamant that she wasn't trying to kill herself when asked. She stated that she plan to follow up with her neurologist when discharged to discuss her medication dose (Trileptal). Per collateral information from Edisnasrin Hammondg at [phone] (her son's father), he stated that the patient isn't known to try to harm herself. He is aware of her hx of seizures. The patient stated that she has a hx of depression/anxiety and take Effexor and Klonopin. She stated that she is seen by Dr Merchant for outpatient psy services. She denies SI/HI's and AVH's. She denies erratic sleep and a poor appetite, She denies alcohol con umption (etoh). Medications and Allergies Allergies Allergy/AdvReac Type Severity Reaction Status Date / Time Iodinated Contrast- Oral and Allergy Anaphylaxis Verified 03/03/15 14:31 IV Dye [Iodinated Contrast Media - IV Dye] NSAIDS (Non-Steroidal Allergy Unknown Verified 02/23/18 17:08 Anti-Inflamma Sulfa (Sulfonamide Allergy Hives Verified 03/03/15 14:31 Antibiotics) hydroxychloroquine sulfate AdvReac TEMP. Verified 03/03/15 14:31 [From Plaquenil] BLINDNESS Home Medications Medication Instructions Recorded Confirmed Last Taken Type ALPRAZolam [Alprazolam] 1 mg PO BID 03/14/17 03/14/17 Unknown History Mirtazapine 15 mg PO QDAY 03/14/17 03/14/17 Unknown History OXcarbazepine [Trileptal] 1,200 mg PO QHS 03/14/17 03/14/17 Unknown History OXcarbazepine [Trileptal] 900 mg PO BID 03/14/17 03/14/17 Unknown History Oxycodone HCl/Acetaminophen 1 each PO Q6HR PRN 03/14/17 03/14/17 Unknown History [Percocet 10/325 mg] Venlafaxine HCl [Effexor Xr] 150 mg PO QDAY 03/14/17 03/14/17 Unknown History predniSONE [Deltasone] 20 mg PO BID 03/14/17 03/14/17 Unknown History Active Meds: Active Medications Acetaminophen (Tylenol) 650 mg PO Q4H PRN PRN Reason: Pain MILD(1-3)/Fever >100.5/FRIEND Acetaminophen (Tylenol) 650 mg LA Q6H PRN PRN Reason: Pain, Mild (1-3) Last Admin: 04/02/19 13:43 Dose: 650 mg Documented by: Enoxaparin Sodium (Lovenox) 40 mg SUB-Q QDAY [facility] Last Admin: 04/03/19 10:09 Dose: 40 mg Documented by: Levofloxacin/Dextrose (Levaquin 750mg/150ml) 750 mg in 150 mls @ 100 mls/hr IV Q24HR [facility]; Protocol Last Admin: 04/03/19 10:09 Dose: 100 mls/hr Documented by: Metoclopramide HCl (Reglan) 5 mg IV Q6H PRN PRN Reason: Nausea Oxycodone HCl (Roxicodone) 5 mg PO Q6H PRN PRN Reason: Pain, Moderate (4-6) Last Admin: 04/03/19 14:30 Dose: 5 mg Documented by: Prednisone (Deltasone) 20 mg PO BID [facility] Last Admin: 04/03/19 10:09 Dose: 20 mg Documented by: Sodium Chloride (Sodium Chloride Flush Syringe 10 Ml) 10 ml IV BID [facility] Last Admin: 04/03/19 10:17 Dose: 10 ml Documented by: Sodium Chloride (Sodium Chloride Flush Syringe 10 Ml) 10 ml IV PRN PRN PRN Reason: LINE FLUSH Venlafaxine HCl (Effexor Xr) 150 mg PO QDAY [facility] Last Admin: 04/03/19 10:08 Dose: 150 mg Documented by: Mental Status Exam - Vital signs Last Vital Signs Temp 99.1 F 04/03/19 13:23 Pulse 107 H 04/03/19 13:23 Resp 22 04/03/19 13:23 BP 134/75 04/03/19 13:23 Pulse Ox 100 04/03/19 13:23 - Exam Narrative exam: MSE: Appearance: calm, cooperative Behavior: regular eye contact Speech: regular rate and tone Mood: "much better" Affect: congruent to mood Thought Process: linear Thought Content: denies SI/HI's and AVH's Motor Activity: sitting up in bed Cognition: A/O x3 Insight: appropriate Judgment: appropriate Results Result Diagrams: 04/02/19 02:29 04/03/19 06:58 Abnormal lab results 04/02/19 04/03/19 04/03/19 Range/Units 20:38 05:40 06:58 Potassium 3.5 L (3.6-5.0) mmol/L Chloride 107.6 H (98-107) mmol/L Glucose 116 H (65-100) mg/dL POC Glucose 108 H (70-105) Lactic Acid 2.10 H* (0.7-2.0) mmol/L All other labs normal. Assessment and Plan Assessment and plan: Impression: Hx of Depression/Anxiety DO. Cannabis Use DO. Intentional overdose ruled out. Today the patient was calm and cooperative during the assessment. The patient is no threat to self. Recommendation/Plan: Rescind 1013. Continue Effexor 150 mg PO daily for depression. Discussed possible suicidality/medication induced tristan with the patient reference Effexor, she verbalized understand. Dispo: The patient can follow up with Dr Merchant for outpatient psy services. Staffed with Dr. Polly Brito.
[2019-04-03 16:49] VITALS: BP 117/74
== END 2019-04-03 21:35 | disposition home or self-care (01) ==
LOC: EEVIPCON 01:51 → SUATTDRO 01:51 → ED 01:51 → INTOOBSV 05:58 → 3A 05:58
PROVIDERS: ADMIT Internal Medicine; ATTEND Internal Medicine
DX: T50.901A Poisoning by unspecified drugs, medicaments and biological substances, accidental (unintentional), initial encounter (principal); G40.909 Epilepsy, unspecified, not intractable, without status epilepticus; M32.9 Systemic lupus erythematosus, unspecified; E87.6 Hypokalemia; R11.2 Nausea with vomiting, unspecified; F32.9 Major depressive disorder, single episode, unspecified; F41.9 Anxiety disorder, unspecified
CPT/HCPCS: 36415; 71045; 80048; 80053; 80307; 81001; 81025; 82140; 82962; 83735; 85025; 87040; 87116; 93005; 93010; 96361; 96365; 96366; 96367; 96372; 96375; 96376; 99284; G0378; J1650; J1956; J2405; J2765; J3480; J7030; J7512; 80320; G0480

== ENCOUNTER 2021-01-29 23:07 | Emergency (ER) | payer MEDICAID ==
[2021-01-29] MEDS ORDERED: levETIRAcetam 1000 MG/NS 0.75% 1,000 MG/100 ML BAG IV ONE (23:14)
--- NOTE | 2021-01-29 23:20 | Emergency Department Report ---
ED Seizure HPI - General Chief Complaint: Seizure Stated Complaint: AMS Time Seen by Provider: 01/29/21 23:14 Source: patient, EMS Mode of arrival: Stretcher Limitations: Physical Limitation - History of Present Illness Initial Comments: Chief complaint: Possible seizure HPI: This is a 45-year-old female with history of SLE, seizures status post lupus cerebritis, depression, gastritis, chronic pain due to cervical disc disease status post anterior fusion August 2020 who presents with possible seizure. Household member called EMS for patient found down altered. Patient awakened with right-sided tingling. She seemed lethargic and confused. Patient states that she has typical mild headache and cloudiness which occurs in her post ictal state. She was in her normal state of health today. She has been compliant with her medications. She currently is symptom-free. EMS reports that patient was confused upon initial exam. 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 Medications: Trileptal Depakote Clonazepam Oxycodone Gabapentin Effexor Omeprazole Complaint: possible seizure -: This evening Description of Episode: loss of consciousness Witnessed:: No Seizure History: known seizure disorder Place: home Possible Precipitating Event: none Associated Symptoms: other (Patient awakened with confusion headache and right- sided body tingling) - Related Data Home Medications Medication Instructions Recorded Confirmed Last Taken ALPRAZolam [Alprazolam] 1 mg PO BID 03/14/17 03/14/17 Unknown Mirtazapine 15 mg PO QDAY 03/14/17 03/14/17 Unknown OXcarbazepine [Trileptal] 1,200 mg PO QHS 03/14/17 03/14/17 Unknown OXcarbazepine [Trileptal] 900 mg PO BID 03/14/17 03/14/17 Unknown Oxycodone HCl/Acetaminophen 1 each PO Q6HR PRN 03/14/17 03/14/17 Unknown [Percocet 10/325 mg] Venlafaxine HCl [Effexor Xr] 150 mg PO QDAY 03/14/17 03/14/17 Unknown predniSONE [Deltasone] 20 mg PO BID 03/14/17 03/14/17 Unknown Allergies Allergy/AdvReac Type Severity Reaction Status Date / Time Iodinated Contrast Media Allergy Anaphylaxis Verified 03/03/15 14:31 [Iodinated Contrast Media - IV Dye] NSAIDS (Non-Steroidal Allergy Unknown Verified 02/23/18 17:08 Anti-Inflamma Sulfa (Sulfonamide Allergy Hives Verified 03/03/15 14:31 Antibiotics) hydroxychloroquine sulfate AdvReac TEMP. Verified 03/03/15 14:31 [From Plaquenil] BLINDNESS ED Review of Systems ROS: Stated complaint: AMS Other details as noted in HPI ED Past Medical Hx - Past Medical History Previous Medical History?: Yes Hx Renal Disease: Yes Hx Seizures: Yes Hx Psychiatric Treatment: Yes (DEPRESSION/INSOMNIA) Additional medical history: LUPUS. LUMBAR HERNIATION. 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 ANEMIA. INSOMNIA, ANXIETY - Surgical History Past Surgical History?: Yes Hx Cholecystectomy: Yes Additional Surgical History: TUBAL LIGATION. LUNG BIOPSY. August 2020 ante rior cervical fusion - Social History Smoking Status: Never Smoker Substance Use Type: Marijuana - Medications Home Medications: Home Medications Medication Instructions Recorded Confirmed Last Taken Type ALPRAZolam [Alprazolam] 1 mg PO BID 03/14/17 03/14/17 Unknown History Mirtazapine 15 mg PO QDAY 03/14/17 03/14/17 Unknown History OXcarbazepine [Trileptal] 1,200 mg PO QHS 03/14/17 03/14/17 Unknown History OXcarbazepine [Trileptal] 900 mg PO BID 03/14/17 03/14/17 Unknown History Oxycodone HCl/Acetaminophen 1 each PO Q6HR PRN 03/14/17 03/14/17 Unknown History [Percocet 10/325 mg] Venlafaxine HCl [Effexor Xr] 150 mg PO QDAY 03/14/17 03/14/17 Unknown History predniSONE [Deltasone] 20 mg PO BID 03/14/17 03/14/17 Unknown History ED Physical Exam - General Limitations: No Limitations General appearance: alert, in no apparent distress - Head Head exam: Present: atraumatic, normocephalic - Eye Eye exam: Present: normal appearance - ENT ENT exam: Present: mucous membranes moist - Neck Neck exam: Present: normal inspection, full ROM, other (Well-healed surgical scar anterior neck). Absent: tenderness, meningismus - Respiratory Respiratory exam: Present: normal lung sounds bilaterally. Absent: respiratory distress, wheezes, rales, rhonchi - Cardiovascular Cardiovascular Exam: Present: regular rate, normal rhythm, normal heart sounds. Absent: systolic murmur, diastolic murmur, rubs, gallop - GI/Abdominal GI/Abdominal exam: Present: soft, normal bowel sounds. Absent: distended, tend erness, guarding, rebound - Extremities Exam Extremities exam: Present: normal inspection - Neurological Exam Neurological exam: Present: alert, oriented X3, CN II-XII intact, normal gait - Expanded Neurological Exam Expanded Patient oriented to: Present: person, place, time Speech: Present: fluid speech Cranial nerves: EOM's Intact: Normal Cerebellar function: Finger to Nose: Normal Upper motor neuron: Inder Neglect: Normal Sensory exam: Upper Extremity Light Touch: Normal Motor strength exam: RUE: 5, LUE: 5, RLE: 5, LLE: 5 Best Eye Response ([place]): (4) open spontaneously Best Motor Response ([place]): (6) obeys commands Best Verbal Response ([place]): (5) oriented [place] Total: 15 - Psychiatric Psychiatric exam: Present: normal affect, normal mood - Skin Skin exam: Present: warm, dry, intact, normal color. Absent: rash ED Course Vital Signs 01/29/21 01/30/21 01/30/21 23:29 00:01 00:31 Temperature 98.1 F Pulse Rate 82 83 80 Respiratory 16 20 21 Rate Blood Pressure 161/91 149/84 Blood Pressure 149/84 [Left] O2 Sat by Pulse 100 99 99 Oximetry 01/30/21 01/30/21 01:01 01:18 Temperature Pulse Rate 90 Respiratory 14 16 Rate Blood Pressure 154/71 Blood Pressure [Left] O2 Sat by Pulse 99 Oximetry - Reevaluation(s) Reevaluation #1: 01/29/21 23:42 Nurse coming to the bedside. Patient exhibited abnormal behavior. Patient was talking during patient's reassessment. While obtaining EKG, patient stopped talking. I assessed patient. Patient makes eye contact. She does not exhibit any seizure-like activity. She is making purposeful movement. However she would not answer questions. I have ordered 0.5 lorazepam for possible partial seizure. 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 Sodium 143 Potassium 3.8 Chloride 107.1 H Carbon Dioxide 24 Anion Gap 16 BUN 18 H Creatinine 0.8 Estimated GFR > 60 BUN/Creatinine Ratio 23 Glucose 79 Calcium 8.5 Total Bilirubin 0.20 AST 13 ALT 16 Alkaline Phosphatase 89 Total Protein 7.0 Albumin 4.3 Albumin/Globulin Ratio 1.6 - EKG Data -: EKG Interpreted by Me EKG shows normal: sinus rhythm, axis, intervals, QRS complexes Rate: normal - EKG Data Interpretation: nonspecific ST-T wave tremayne 01/29/21 23:44 EKG obtained 2338 Normal sinus rhythm rate 80 bpm normal axis normal intervals no ST elevation nonspecific T wave pattern - Medical Decision Making Seizure, postictal state: Patient received IV Keppra load in emergency department. Seizure post ictal state with partial seizure witnessed in the emergency department. Patient's work-up unremarkable. EKG without evidence of acute cardiac injury. No arrhythmia seen on cardiac monitoring while under ED observation. Patient has baseline anemia. Hemoglobin is 9 is near patient's baseline. Chemistry unremarkable. Patient did not require any refills of her medications. She is discharged home. She has access to her PCP. Critical care attestation.: If time is entered above; I have spent that time in minutes in the direct care of this critically ill patient, excluding procedure time. ED Disposition Clinical Impression: Seizure, Seizure disorder, Systemic lupus erythematosus, Anemia of chronic disease Disposition: DC-01 TO HOME OR SELFCARE Is pt being admited?: No Does the pt Need Aspirin: No Condition: Stable Instructions: Seizure, Adult, [id number] Referrals: PRIMARY CARE, [Primary Care Provider] - 3-5 Days
[2021-01-29] MEDS ORDERED: LORazepam 2 MG/ML VIAL IV ONE (23:42)
[2021-01-30] MEDS ORDERED: ONDANSETRON 4 MG/2 ML INJ IV ONE (00:16)
[2021-01-30 00:37] LABS: Hematocrit 29.7 % (30.3-42.9); Hemoglobin 9.4 gm/dl (10.1-14.3); Mean Corpuscular HGB Conc 32 % (30-34); Mean Corpuscular Volume 74 fl (79-97); Platelet Count 316 K/mm3 (140-440); Red Blood Count 4.02 M/mm3 (3.65-5.03); Red Cell Distribution Width 19.4 % (13.2-15.2)
[2021-01-30 01:04] LABS: Alanine Aminotransferase 16 units/L (7-56); Albumin 4.3 g/dL (3.9-5); BUN/Creatinine Ratio 23; Blood Urea Nitrogen 18 mg/dL (7-17); Calcium 8.5 mg/dL (8.4-10.2); Hemolysis Index 16
[2021-01-30] MEDS ORDERED: oxyCODONE /ACETAMINOPHEN 5-325MG TAB PO ONE (01:13)
[2021-01-30 01:14] VITALS: BP 154/71
[2021-01-30 02:02] LABS: Anisocytosis 1+; Platelet Estimate Consistent w Auto; Total Cells Counted 100
--- NOTE | 2021-01-30 15:01 | Electrocardiograph Report ---
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
== END 2021-01-30 02:12 | disposition home or self-care (01) ==
LOC: ED 23:07
DX: G40.909 Epilepsy, unspecified, not intractable, without status epilepticus (principal); D63.8 Anemia in other chronic diseases classified elsewhere; M32.9 Systemic lupus erythematosus, unspecified; F32.9 Major depressive disorder, single episode, unspecified; F41.9 Anxiety disorder, unspecified; F12.90 Cannabis use, unspecified, uncomplicated; Z90.49 Acquired absence of other specified parts of digestive tract; Z98.51 Tubal ligation status; Z79.899 Other long term (current) drug therapy; Z86.69 Personal history of other diseases of the nervous system and sense organs; Z91.041 Radiographic dye allergy status
CPT/HCPCS: 36415; 80053; 85007; 85025; 93005; 96365; 96375; 99284; J1953; J2060; J2405

== ENCOUNTER 2021-02-03 07:43 | Emergency (ER) | payer MEDICAID ==
--- NOTE | 2021-02-03 08:40 | Emergency Department Report ---
ED Fall HPI - General Stated Complaint: WEAK/FAINT/FALL Time Seen by Provider: 02/03/21 08:19 - History of Present Illness Initial Comments: 45-year-old female, history of lupus, depression, anxiety, chronic pain, seizure disorder, presents to ED following fall from bed this morning. Patient states she does not remember what happened, she only remembers waking up on the floor. She is not sure if she had a seizure. EMS reports patient has some right-sided weakness, which she states has been ongoing for approximately 1 week. Patient states she is normally followed by [facility]. States she underwent a an MRI earlier this week because her neurologist were concerned for possible CVA or TIA. Patient states that MRI was negative for CVA, it only showed some stable aneurysms. Complaint: fall -: This morning Fall From: out of bed When Fall Occurred: unsure Fall Witnessed: no Place Fall Occurred: home Symptoms Prior to Fall: none Location: head Quality: aching Associated Symptoms: headache - Related Data Home Medications Medication Instructions Recorded Confirmed Last Taken ALPRAZolam [Alprazolam] 1 mg PO BID 03/14/17 03/14/17 Unknown Mirtazapine 15 mg PO QDAY 03/14/17 03/14/17 Unknown OXcarbazepine [Trileptal] 1,200 mg PO QHS 03/14/17 03/14/17 Unknown OXcarbazepine [Trileptal] 900 mg PO BID 03/14/17 03/14/17 Unknown Oxycodone HCl/Acetaminophen 1 each PO Q6HR PRN 03/14/17 03/14/17 Unknown [Percocet 10/325 mg] Venlafaxine HCl [Effexor Xr] 150 mg PO QDAY 03/14/17 03/14/17 Unknown predniSONE [Deltasone] 20 mg PO BID 03/14/17 03/14/17 Unknown Allergies Allergy/AdvReac Type Severity Reaction Status Date / Time Iodinated Contrast Media Allergy Anaphylaxis Verified 03/03/15 14:31 [Iodinated Contrast Media - IV Dye] NSAIDS (Non-Steroidal Allergy Unknown Verified 02/23/18 17:08 Anti-Inflamma Sulfa (Sulfonamide Allergy Hives Verified 03/03/15 14:31 Antibiotics) hydroxychloroquine sulfate AdvReac TEMP. Verified 03/03/15 14:31 [From Plaquenil] BLINDNESS ED Review of Systems ROS: Stated complaint: WEAK/FAINT/FALL Other details as noted in HPI Comment: All other systems reviewed and negative Neurological: headache, weakness ED Past Medical Hx - Past Medical History Hx Renal Disease: Yes Hx Seizures: Yes Hx Psychiatric Treatment: Yes (DEPRESSION/INSOMNIA) Additional medical history: LUPUS. LUMBAR HERNIATION. 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 ANEMIA. INSOMNIA, ANXIETY - Surgical History Hx Cholecystectomy: Yes Additional Surgical History: TUBAL LIGATION. LUNG BIOPSY. August 2020 anterior cervical fusion - Social History Smoking Status: Never Smoker Substance Use Type: Marijuana - Medications Home Medications: Home Medications Medication Instructions Recorded Confirmed Last Taken Type ALPRAZolam [Alprazolam] 1 mg PO BID 03/14/17 03/14/17 Unknown History Mirtazapine 15 mg PO QDAY 03/14/17 03/14/17 Unknown History OXcarbazepine [Trileptal] 1,200 mg PO QHS 03/14/17 03/14/17 Unknown History OXcarbazepine [Trileptal] 900 mg PO BID 03/14/17 03/14/17 Unknown History Oxycodone HCl/Acetaminophen 1 each PO Q6HR PRN 03/14/17 03/14/17 Unknown History [Percocet 10/325 mg] Venlafaxine HCl [Effexor Xr] 150 mg PO QDAY 03/14/17 03/14/17 Unknown History predniSONE [Deltasone] 20 mg PO BID 03/14/17 03/14/17 Unknown History ED Physical Exam - General General appearance: alert, in no apparent distress - Head Head exam: Present: atraumatic, normocephalic - Eye Eye exam: Present: normal appearance, PERRL, EOMI - ENT ENT exam: Present: mucous membranes moist - Neck Neck exam: Present: normal inspection, full ROM. Absent: tenderness - Respiratory Respiratory exam: Present: normal lung sounds bilaterally. Absent: respiratory distress - Cardiovascular Cardiovascular Exam: Present: regular rate, normal rhythm - GI/Abdominal GI/Abdominal exam: Present: soft. Absent: distended, tenderness - Extremities Exam Extremities exam: Present: normal inspection - Neurological Exam Neurological exam: Present: alert, oriented X3, CN II-XII intact, motor sensory deficit (BUE strength 5/5; LLE strength 5/5; RLE strength 3/5; sensation intact) - Psychiatric Psychiatric exam: Present: normal affect, normal mood - Skin Skin exam: Present: warm, dry, intact, normal color ED Course Vital Signs 02/03/21 02/03/21 02/03/21 08:00 09:10 10:29 Temperature 98.3 F 98.2 F 98.2 F Pulse Rate 79 83 83 Respiratory 16 15 16 Rate Blood Pressure 130/74 118/61 132/81 [Left] O2 Sat by Pulse 98 99 100 Oximetry ED Medical Decision Making - Lab Data Result diagrams: 02/03/21 08:54 02/03/21 08:54 - Radiology Data Radiology results: report reviewed, image reviewed - Medical Decision Making 45-year-old female presents to ED following fall from bed. Possible that patient may have had a seizure. CT head is unremarkable. Patient has no new neuro deficits, right leg weakness has been patient's baseline for the past week. States she underwent MRI testing and was told that she has several small aneurysms, but no recent CVA. Patient states her Depakote level was elevated a few days ago so she stopped taking it. Patient also taking Trileptal. Patient is feeling much better at this time. She is comfortable with discharge home. Outpatient follow-up advised with her neurologist. Return precautions given. - Differential Diagnosis seizure, fall Critical care attestation.: If time is entered above; I have spent that time in minutes in the direct care of this critically ill patient, excluding procedure time. ED Disposition Clinical Impression: Fall, Head injury Disposition: DC-01 TO HOME OR SELFCARE Is pt being admited?: No Condition: Stable Instructions: Head Injury, Adult Referrals: PRIMARY CARE, [Primary Care Provider] - 3-5 Days Time of Disposition: 10:26
[2021-02-03 09:47] LABS: Basophils % (Auto) 0.6 % (0.0-1.8); Eosinophils % (Auto) 0.1 % (0.0-4.3); Hematocrit 33.1 % (30.3-42.9); Hemoglobin 10.4 gm/dl (10.1-14.3); Lymphocytes # (Auto) 2.5 K/mm3 (1.2-5.4); Lymphocytes % (Auto) 32.3 % (13.4-35.0); Mean Corpuscular HGB Conc 31 % (30-34); Mean Corpuscular Volume 75 fl (79-97); Monocytes # (Auto) 0.6 K/mm3 (0.0-0.8); Monocytes % (Auto) 7.7 % (0.0-7.3); Platelet Count 368 K/mm3 (140-440); Red Blood Count 4.42 M/mm3 (3.65-5.03); Red Cell Distribution Width 19.4 % (13.2-15.2)
[2021-02-03 09:57] LABS: Blood Urea Nitrogen 17 mg/dL (7-17); Calcium 9.1 mg/dL (8.4-10.2); Hemolysis Index 23
--- NOTE | 2021-02-03 09:59 | Cat Scan Report ---
CT HEAD WITHOUT CONTRAST INDICATION / CLINICAL INFORMATION: FALL; PT STATES SHE FEELS LIKE SHE IS HAVING AN OUT OF BODY EXPERIENCE. TECHNIQUE: All CT scans at this location are performed using CT dose reduction for ALARA by means of automated e xposure control. COMPARISON: None available. FINDINGS: HEMORRHAGE: No evidence of intracranial hemorrhage or extra-axial fluid collection. EXTRA-AXIAL SPACES: Cortical sulci, sylvian fissures and basilar cisterns have an unremarkable appear ance. VENTRICULAR SYSTEM: The third and lateral ventricles are of normal size and configuration. CEREBRAL PARENCHYMA: No areas of abnormal brain parenchymal attenuation are identified. There is no i ndication of recent infarction. MIDLINE SHIFT OR HERNIATION: There is no mass effect. CEREBELLUM / BRAINSTEM: Brainstem and cerebellum have an unremarkable appearance. MIDLINE STRUCTURES:No abnormalities of the pituitary gland or pineal region are identified. INTRACRANIAL VESSELS:No abnormalities are identified on this noncontrast head CT. ORBITS: visualized portions of the orbits have an unremarkable appearance. SOFT TISSUES of HEAD: No significant abnormality. CALVARIUM: Evaluation of bone windows reveals no abnormalities. PARANASAL SINUSES / MASTOID AIR CELLS: Visualized portions of the paranasal sinuses are free from inf lammatory mucosal disease. Mastoid air cells are normally pneumatized. ADDITIONAL FINDINGS: Occasional dural calcifications are observed along the falx and tentorium. IMPRESSION: 1. Normal head CT without contrast. Signer Name: Juan Pablo Segura MD Signed: 02/03/2021 9:55 AM Workstation Name: [id number]
[2021-02-03 10:16] LABS: BUN/Creatinine Ratio 24
[2021-02-03 10:30] VITALS: BP 132/81
== END 2021-02-03 11:43 | disposition home or self-care (01) ==
LOC: ED 07:43
DX: S09.90XA Unspecified injury of head, initial encounter (principal); R56.9 Unspecified convulsions; F32.9 Major depressive disorder, single episode, unspecified; F12.10 Cannabis abuse, uncomplicated; Z98.51 Tubal ligation status; Z98.890 Other specified postprocedural states; Z79.899 Other long term (current) drug therapy; Z88.8 Allergy status to other drugs, medicaments and biological substances; W19.XXXA Unspecified fall, initial encounter; Y93.89 Activity, other specified; Y92.009 Unspecified place in unspecified non-institutional (private) residence as the place of occurrence of the external cause; Y99.8 Other external cause status
CPT/HCPCS: 36415; 70450; 80048; 84703; 85025

== ENCOUNTER 2021-09-19 14:18 | Observation (INO) | payer MEDICAID, OTHER ==
[2021-09-19] MEDS ORDERED: BENZTROPINE 2 MG/2 ML INJ IM ONE (15:36)
[2021-09-19] MEDS ORDERED: diphenhydrAMINE 50 MG/ML VIAL IM ONE (15:53)
--- NOTE | 2021-09-19 18:36 | Emergency Department Report ---
ED General Adult HPI - General Chief complaint: Weakness Stated complaint: weakness Time Seen by Provider: 09/19/21 15:28 Source: EMS Mode of arrival: Ambulatory Limitations: No Limitations - History of Present Illness Initial comments: Chief complaint: "Why am I talking like this?" HPI: This is a 46-year-old female with history of lupus, seizure disorder, cervical radiculopathy, depression, anxiety who presents with abnormal speech. She received droperidol at outside hospital 2 days ago. She also took Percocet gabapentin just prior to arrival. She denies weakness. She denies difficulty with ambulation. Patient's PCP is Dr. Sharla Vilchis. According to paperwork provided. Patient's medication list reviewed. Patient takes 18 medications. Medications include oxycodone Trileptal Zofran Prilosec Remeron Midazolam as needed Relistor Methotrexate Methocarbamol Integra [place] Gabapentin Folic acid Effexor Bentyl Clonazepam Albuterol Vitamin D3 -: This morning Consistency: constant Improves with: none Worsens with: none Associated Symptoms: denies other symptoms - Related Data Home Medications Medication Instructions Recorded Confirmed Last Taken ALPRAZolam [Alprazolam] 1 mg PO BID 03/14/17 03/14/17 Unknown Mirtazapine 15 mg PO QDAY 03/14/17 03/14/17 Unknown OXcarbazepine [Trileptal] 1,200 mg PO QHS 03/14/17 03/14/17 Unknown OXcarbazepine [Trileptal] 900 mg PO BID 03/14/17 03/14/17 Unknown Oxycodone HCl/Acetaminophen 1 each PO Q6HR PRN 03/14/17 03/14/17 Unknown [Percocet 10/325 mg] Venlafaxine HCl [Effexor Xr] 150 mg PO QDAY 03/14/17 03/14/17 Unknown predniSONE [Deltasone] 20 mg PO BID 03/14/17 03/14/17 Unknown Allergies Allergy/AdvReac Type Severity Reaction Status Date / Time Iodinated Contrast Media Allergy Anaphylaxis Verified 03/03/15 14:31 [Iodinated Contrast Media - IV Dye] NSAIDS (Non-Steroidal Allergy Unknown Verified 02/23/18 17:08 Anti-Inflamma Sulfa (Sulfonamide Allergy Hives Verified 03/03/15 14:31 Antibiotics) hydroxychloroquine sulfate AdvReac TEMP. Verified 03/03/15 14:31 [From Plaquenil] BLINDNESS ED Review of Systems ROS: Stated complaint: weakness Other details as noted in HPI Comment: All other systems reviewed and negative Constitutional: denies: chills, fever, malaise Respiratory: denies: cough, shortness of breath Cardiovascular: denies: chest pain Gastrointestinal: denies: abdominal pain, nausea, vomiting Neurological: denies: headache, weakness, numbness, paresthesias, confusion, abnormal gait, vertigo Psychiatric: denies: anxiety, depression ED Past Medical Hx - Past Medical History Previous Medical History?: Yes Hx Renal Disease: Yes Hx Seizures: Yes Hx Psychiatric Treatment: Yes (DEPRESSION/INSOMNIA) Additional medical history: LUPUS. LUMBAR HERNIATION. 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 ANEMIA. INSOMNIA, ANXIETY - Surgical History Past Surgical History?: Yes Hx Cholecystectomy: Yes Additional Surgical History: TUBAL LIGATION. LUNG BIOPSY. August 2020 anterior cervical fusion - Social History Smoking Status: Never Smoker Substance Use Type: Marijuana - Medications Home Medications: Home Medications Medication Instructions Recorded Confirmed Last Taken Type ALPRAZolam [Alprazolam] 1 mg PO BID 03/14/17 03/14/17 Unknown History Mirtazapine 15 mg PO QDAY 03/14/17 03/14/17 Unknown History OXcarbazepine [Trileptal] 1,200 mg PO QHS 03/14/17 03/14/17 Unknown History OXcarbazepine [Trileptal] 900 mg PO BID 03/14/17 03/14/17 Unknown History Oxycodone HCl/Acetaminophen 1 each PO Q6HR PRN 03/14/17 03/14/17 Unknown History [Percocet 10/325 mg] Venlafaxine HCl [Effexor Xr] 150 mg PO QDAY 03/14/17 03/14/17 Unknown History predniSONE [Deltasone] 20 mg PO BID 03/14/17 03/14/17 Unknown History ED Physical Exam - General Limitations: No Limitations General appearance: alert, in no apparent distress, other (Patient has normal speech content otherwise the tone of her speech is slightly off as if she has a thick heavy tongue) - Head Head exam: Present: atraumatic, normocephalic - Eye Eye exam: Present: normal appearance - ENT ENT exam: Present: mucous membranes moist - Neck Neck exam: Present: normal inspection, full ROM - Respiratory Respiratory exam: Present: normal lung sounds bilaterally. Absent: respiratory distress, wheezes, rales, rhonchi - Cardiovascular Cardiovascular Exam: Present: regular rate, normal rhythm, normal heart sounds. Absent: systolic murmur, diastolic murmur, rubs, gallop - GI/Abdominal GI/Abdominal exam: Present: soft, normal bowel sounds. Absent: distended, tenderness, guarding, rebound - Extremities Exam Extremities exam: Present: normal inspection - Neurological Exam Neurological exam: Present: alert, oriented X3, CN II-XII intact - Expanded Neurological Exam Expanded Patient oriented to: Present: person, place, time Speech: Present: fluid speech Cerebellar function: Finger to Nose: Normal Motor strength exam: RUE: 5, LUE: 5, RLE: 5, LLE: 5 Best Eye Response ([place]): (4) open spontaneously Best Motor Response ([place]): (6) obeys commands Best Verbal Response ([place]): (5) oriented [place] Total: 15 - Psychiatric Psychiatric exam: Present: normal affect, normal mood - Skin Skin exam: Present: warm, dry, intact, normal color. Absent: rash ED Course Vital Signs 09/19/21 09/19/21 14:23 16:23 Temperature 98.3 F 98.3 F Pulse Rate 100 H Respiratory 16 Rate Blood Pressure 115/72 [Right] O2 Sat by Pulse 96 Oximetry ED Medical Decision Making - EKG Data -: EKG Interpreted by Ms - EKG Data 09/19/21 18:34 EKG obtained 1529 EKG interpreted by nh Sinus tachycardia rate 106 bpm normal axis prolonged QTC no ST elevation - Medical Decision Making Abnormal speech due to dystonic reaction versus polypharmacy. Symptoms improved with Cogentin and Benadryl. Discharged home. Critical care attestation.: If time is entered above; I have spent that time in minutes in the direct care of this critically ill patient, excluding procedure time. ED Disposition Clinical Impression: Dystonia, Polypharmacy Disposition: HOME / SELF CARE / HOMELESS Is pt being admited?: No Does the pt Need Aspirin: No Condition: Stable Instructions: Dystonic Reaction Referrals: KERRY LUNA MD [Staff Physician] - 3-5 Days
[2021-09-19] MEDS ORDERED: SODIUM CHLORIDE 0.9% 1000 ML 1,000 ML IV ONE (19:38)
--- NOTE | 2021-09-19 20:15 | XRay Report ---
XR chest 1V ap INDICATION / CLINICAL INFORMATION: difficulty walking. COMPARISON: 04/02/2019. FINDINGS: SUPPORT DEVICES: None. HEART /PULMONARY VASCULATURE: No significant abnormality. LUNGS / PLEURA: No significant pulmonary or pleural abnormality. No pneumothorax. IMPRESSION: 1. No acute findings. Signer Name: Primitivo Moeller MD Signed: 09/19/2021 8:10 PM Workstation Name: [id number]
[2021-09-19 21:00] LABS: Hematocrit 39.7 % (30.3-42.9); Hemoglobin 12.3 gm/dl (10.1-14.3); Mean Corpuscular HGB Conc 31 % (30-34); Mean Corpuscular Volume 85 fl (79-97); Red Blood Count 4.66 M/mm3 (3.65-5.03)
[2021-09-19 21:02] LABS: INR 1.07 (0.87-1.13); Partial Thromboplastin Time 41.2 Sec. (24.2-36.6)
[2021-09-19 21:12] LABS: Alanine Aminotransferase 20 units/L (7-56); Albumin 5.1 g/dL (3.9-5); BUN/Creatinine Ratio 9; Blood Urea Nitrogen 7 mg/dL (7-17); Calcium 9.9 mg/dL (8.4-10.2); Hemolysis Index 14
[2021-09-19 21:26] LABS: Basophils % (Auto) 1.1 % (0.0-1.8); Eosinophils % (Auto) 0.2 % (0.0-4.3); Lymphocytes # (Auto) 1.6 K/mm3 (1.2-5.4); Lymphocytes % (Auto) 28.9 % (13.4-35.0); Monocytes # (Auto) 0.3 K/mm3 (0.0-0.8); Monocytes % (Auto) 5.1 % (0.0-7.3)
[2021-09-19 21:27] LABS: Basophils # (Auto) 0.1 K/mm3 (0.0-0.1)
--- NOTE | 2021-09-19 22:14 | Cat Scan Report ---
CT HEAD WITHOUT CONTRAST INDICATION / CLINICAL INFORMATION: Stroke-Like symptoms. TECHNIQUE: All CT scans at this location are performed using CT dose reduction for ALARA by means of automated e xposure control. COMPARISON: Head CT 02/03/2021 FINDINGS: HEMORRHAGE: No evidence of intracranial hemorrhage or extra-axial fluid collection. EXTRA-AXIAL SPACES: Cortical sulci, sylvian fissures and basilar cisterns have an unremarkable appear ance. VENTRICULAR SYSTEM: The third and lateral ventricles are of normal size and configuration. CEREBRAL PARENCHYMA: No areas of abnormal brain parenchymal attenuation are identified. There is no i ndication of recent infarction. MIDLINE SHIFT OR HERNIATION: There is no mass effect. CEREBELLUM / BRAINSTEM: Brainstem and cerebellum have an unremarkable appearance. MIDLINE STRUCTURES:No abnormalities of the pituitary gland or pineal region are identified. INTRACRANIAL VESSELS:No abnormalities are identified on this noncontrast head CT. ORBITS: visualized portions of the orbits have an unremarkable appearance. SOFT TISSUES of HEAD: No significant abnormality. CALVARIUM: Evaluation of bone windows reveals no abnormalities. PARANASAL SINUSES / MASTOID AIR CELLS: Visualized portions of the paranasal sinuses are free from inf lammatory mucosal disease. Mastoid air cells are normally pneumatized. IMPRESSION: 1. Normal head CT without contrast. No interval change in comparison to prior study 02/03/2021. Signer Name: Juan Pablo Segura MD Signed: 09/19/2021 10:09 PM Workstation Name: [id number]
[2021-09-19] MEDS ORDERED: HYDROcodone/ACETAMINOPHEN 5-325 MG TAB PO ONE (22:22)
[2021-09-19 22:23] LABS: Platelet Count 209 K/mm3 (140-440)
[2021-09-19] MEDS ORDERED: MORPHINE 4 MG/1 ML INJ IV PRN (23:22)
[2021-09-19] MEDS ORDERED: ACETAMINOPHEN 325 MG TAB PO PRN (23:22)
[2021-09-19] MEDS ORDERED: METOCLOPRAMIDE 10 MG TAB PO PRN (23:22)
[2021-09-19] MEDS ORDERED: ONDANSETRON 4 MG/2 ML INJ IV PRN ×2 (23:22)
[2021-09-19] MEDS ORDERED: MAGNESIUM HYDROXIDE (MOM) ORAL LIQD UDC PO PRN ×2 (23:22)
[2021-09-19] MEDS ORDERED: PROMETHAZINE 25 MG RECT SUPP PR PRN (23:22)
--- NOTE | 2021-09-19 23:45 | History and Physical Report ---
History of Present Illness Date of examination: 09/19/21 Date of admission: 09/19/2021 Chief complaint: Dysarthria History of present illness: 46-year-old -[place] female with known history of seizure disorder, lupus, cervical radiculopathy, anxiety with depression presents to the emergency room today with complaints with difficulty with her speech. She also indicates that she has had difficulty ambulating and unable to bear weight. CT head stroke protocol was therefore initiated. Patient denies any headache or dizziness denies any diaphoresis. She denies any blurry vision. No nausea or vomiting and no diarrhea. Patient denies any sick contacts and no recent travel. Denies any contact with anyone with COVID-19. Review of patient's medications indicates she takes about 17 medications as listed below: Trileptal Zofran Prilosec Remeron Midazolam as needed Relistor Methotrexate Methocarbamol Integra [place] Gabapentin Folic acid Effexor Bentyl Clonazepam Albuterol Vitamin D3 Patient was also said to have had Percocet and gabapentin prior to arrival in the emergency room. She denies any intentional overdose of her medication. Work-up in the emergency room today including labs, CT scan of the head and chest x-ray were unremarkable. Patient being admitted for evaluation of her dysarthria and unsteady gait. Past History Past Medical History: renal failure, seizures ( LUPUS. LUMBAR HERNIATION. 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 ANEMIA. INSOMNIA, ANXIETY), other (Depression, insomnia, LUPUS. LUMBAR HERNIATION. 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 ANEMIA. INSOMNIA, ANXIETY) Past Surgical History: cholecystectomy, Other (Tubal ligation, lung biopsy, cervical fusion in August 2020.) Social history: other (Uses marijuana occasionally) Family history: no significant family history Medications and Allergies Allergies Allergy/AdvReac Type Severity Reaction Status Date / Time Iodinated Contrast Media Allergy Anaphylaxis Verified 03/03/15 14:31 [Iodinated Contrast Media - IV Dye] NSAIDS (Non-Steroidal Allergy Unknown Verified 02/23/18 17:08 Anti-Inflamma Sulfa (Sulfonamide Allergy Hives Verified 03/03/15 14:31 Antibiotics) hydroxychloroquine sulfate AdvReac TEMP. Verified 03/03/15 14:31 [From Plaquenil] BLINDNESS Home Medications Medication Instructions Recorded Confirmed Last Taken Type Mirtazapine 7.5 mg PO QHS 0709/20/21 09/18/21 21:00 History OXcarbazepine [Trileptal] 300 mg PO TID 03/14/17 09/20/21 Unknown History OXcarbazepine [Trileptal] 300 mg PO TID 03/14/17 09/20/21 09/19/21 09:00 History Oxycodone HCl/Acetaminophen 1 each PO Q6HR PRN 03/14/17 09/20/21 Unknown History [Percocet 10/325 mg] Venlafaxine HCl [Effexor Xr] 150 mg PO QDAY 03/14/17 09/20/21 09/19/21 09:00 History predniSONE [Deltasone] 10 mg PO ONCE 03/14/17 09/20/21 Unknown History Folic Acid [Folvite] 1 mg PO BID 09/20/21 09/20/21 09/19/21 09:00 History Gabapentin [Neurontin] 800 mg PO 4XD 09/20/21 09/20/21 Unknown History Robaxin TAB 750 mg PO TID 09/20/21 09/20/21 Unknown History clonazePAM [ Klonopin] 0.5 mg PO BID 09/20/21 09/20/21 09/19/21 09:00 History Active Meds: Active Medications Acetaminophen (Acetaminophen 325 Mg Tab) 650 mg PO Q4H PRN PRN Reason: Pain MILD(1-3)/Fever >100.5/FRIEND Aspirin (Aspirin 325 Mg Tab) 325 mg PO QDAY SHAYNE Atorvastatin Calcium (Atorvastatin 40 Mg Tab) 40 mg PO QHS SHAYNE Bisacodyl (Bisacodyl 10 Mg Rect Supp) 10 mg ID QDAY PRN PRN Reason: Constipation Magnesium Hydroxide (Magnesium Hydroxide (Mom) Oral Liqd Udc) 30 ml PO Q4H PRN PRN Reason: Constipation Magnesium Hydroxide (Magnesium Hydroxide (Mom) Oral Liqd Udc) 30 ml PO Q4H PRN PRN Reason: Constipation Metoclopramide HCl (Metoclopramide 10 Mg Tab) 10 mg PO Q6H PRN PRN Reason: Nausea And Vomiting Morphine Sulfate (Morphine 2 Mg/1 Ml Inj) 2 mg IV Q4H PRN PRN Reason: Pain, Moderate (4-6) Morphine Sulfate (Morphine 4 Mg/1 Ml Inj) 4 mg IV Q4H PRN PRN Reason: Pain , Severe (7-10) Ondansetron HCl (Ondansetron 4 Mg/2 Ml Inj) 4 mg IV Q8H PRN PRN Reason: Nausea And Vomiting Ondansetron HCl (Ondansetron 4 Mg/2 Ml Inj) 4 mg IV Q8H PRN PRN Reason: Nausea And Vomiting Promethazine HCl (Promethazine 25 Mg Rect Supp) 25 mg ID Q6H PRN PRN Reason: Nausea And Vomiting Sodium Chloride (Sodium Chloride 0.9% 10 Ml Flush Syringe) 10 ml IV BID SHAYNE Sodium Chloride (Sodium Chloride 0.9% 10 Ml Flush Syringe) 10 ml IV PRN PRN PRN Reason: LINE FLUSH Sodium Chloride (Sodium Chloride 0.9% 10 Ml Flush Syringe) 10 ml INJ PRN PRN PRN Reason: LINE FLUSH Review of Systems Constitutional: no fever, no chills Ears, nose, mouth and throat: no nasal congestion, no sore throat Cardiovascular: no chest pain, no palpitations Respiratory: no cough, no shortness of breath Gastrointestinal: no abdominal pain, no nausea, no vomiting, no diarrhea Genitourinary Female: no flank pain, no dysuria, no hematuria Musculoskeletal: no neck pain, no low back pain Integumentary: no rash, no pruritis Neurological: no headaches, no confusion Psychiatric: no anxiety, no depression Endocrine: no polyphagia, no polydipsia, no polyuria Exam - Constitutional Vitals: Temp Pulse Resp BP Pulse Ox 98.3 F 100 H 16 115/72 96 09/19/21 16:23 09/19/21 14:23 09/19/21 14:23 09/19/21 14:23 09/19/21 14:23 General appearance: Present: no acute distress, well-nourished - EENT Eyes: Present: PERRL, EOM intact. Absent: scleral icterus ENT: hearing intact, clear oral mucosa, dentition normal - Neck Neck: Present: supple, normal ROM - Respiratory Respiratory effort: normal Respiratory: bilateral: CTA - Cardiovascular Rhythm: regular Heart Sounds: Present: S1 & S2. Absent: gallop, systolic murmur, diastolic murmur, rub, click - Extremities Extremities: no ischemia, pulses intact, pulses symmetrical, No edema, normal temperature, normal color, Full ROM Peripheral Pulses: within normal limits - Abdominal General gastrointestinal: Present: soft, non-tender, non-distended, normal bowel sounds. Absent: mass - Integumentary Integumentary: Present: clear, warm, dry. Absent: rash - Musculoskeletal Musculoskeletal: strength equal bilaterally - Psychiatric Psychiatric: appropriate mood/affect, intact judgment & insight, memory intact, cooperative - Neurologic Neurologic: CNII-XII intact, no focal deficits, moves all extremities HEART Score - HEART Score Troponin: Troponin T < 0.010 ng/mL (0.00-0.029) 09/19/21 20:21 Results - Labs CBC & Chem 7: 09/19/21 20:21 09/19/21 20:21 Labs: Abnormal lab results 09/19/21 09/19/21 09/19/21 Range/Units 20:21 20:21 20: MCH 26 L (28-32) pg RDW 17.0 H (13.2-15.2) % PT 15.1 H (12.2-14.9) Sec. APTT 41.2 H (24.2-36.6) Sec. Carbon Dioxide 20 L (22-30) mmol/L Albumin 5.1 H (3.9-5) g/dL Assessment and Plan Assessment: Dysarthria Polypharmacy Unsteady gait Plan: Patient admitted and placed on telemetry. Etiology of patient's symptoms unclear. May be secondary to polypharmacy. However patient will also be worked up for possible CVA. Patient be scheduled for carotid Doppler, echocardiogram and MRI of the brain. We'll request physical therapy and speech therapy evaluation. Neurology evaluation also requested. We'll continue to monitor neuro status. DVT prophylaxis: Subcutaneous heparin CODE STATUS: Full code
[2021-09-20] MEDS ORDERED: HYDROcodone/ACETAMINOPHEN 5-325 MG TAB PO ONE (00:40)
[2021-09-20] MEDS ORDERED: oxyCODONE 5 MG TAB PO ONE (00:45)
[2021-09-20 06:56] LABS: Bacteria,Urine 1+ /HPF (Negative); Bilirubin,Urine MOD (Negative); Blood,Urine NEG (Negative); Color,Urine Yellow (Yellow); Urobilinogen,Urine < 2.0 mg/dL (<2.0)
[2021-09-20 06:59] LABS: Cannabinoid Screen,Urine Negative; Cocaine Screen,Urine Negative; Methadone Screen,Urine Negative; Opiate Screen,Urine Negative
[2021-09-20 07:26] LABS: Ictotest,Urine Negative (Negative)
[2021-09-20 07:45] LABS: Amphetamine Screen,Urine PRESUMPTIVE POSITIVE; Benzodiazepines Screen,Urine PRESUMPTIVE POSITIVE
[2021-09-20] MEDS ORDERED: OXcarbazepine 300 MG TAB PO SCH (08:00)
--- NOTE | 2021-09-20 08:38 | Consultation ---
History of Present Illness Consult date: 09/20/21 Reason for Consult: Dysarthia and unsteady gait History of present illness: 46-year-old -Russian female with known history of seizure disorder, lupus, cervical radiculopathy s/p surgery 09/2020, anxiety with depression presents to the emergency room today with complaints with difficulty with her speech. She also indicates that she has had difficulty ambulating and unable to bear weight. CT head stroke protocol was therefore initiated. Patient denies any headache or dizziness denies any diaphoresis. She denies any blurry vision. No nausea or vomiting and no diarrhea. Patient denies any sick contacts and no recent travel. Denies any contact with anyone with COVID-19. Review of patient's medications indicates she takes about 17 medications as listed below: Trileptal Zofran Prilosec Remeron Midazolam as needed Relistor Methotrexate Methocarbamol Integra Ranger Gabapentin Folic acid Effexor Bentyl Clonazepam Albuterol Vitamin D3 Patient was also said to have had Percocet average 3-4 tabletes daily ,and gabapentin at 800 mg tid prior to arrival in the emergency room. She denies any intentional overdose of her medication. she is not sure if had seizue at home , according to her she is with hx of seizure for at least 13-14 years, she average few seizures a year last was in June , she is followed by neurologist she is taking trileptal 300 mg tid, was tried on valproic acid made her unsteady , and was stopped she was tried on clozapam which made her sleepy According to her seizure is usually proceeded with funny feeling then she is unresponsive for few minutes then followed by post ictal for 1 hour. she had neck fusion in early 2020 and she is with recurrent pain and bladder incontinence, followed by orthopedic Work-up in the emergency room today including labs, CT scan of the head and chest x-ray were unremarkable. Patient being admitted for evaluation of her dysarthria and unsteady gait. Past History Past Medical History: renal failure, seizures ( LUPUS. LUMBAR HERNIATION. 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 ANEMIA. INSOMNIA, ANXIETY), other (Depression, insomnia, LUPUS. LUMBAR HERNIATION. 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 ANEMIA. INSOMNIA, ANXIETY) Past Surgical History: cholecystectomy, Other (Tubal ligation, lung biopsy, cervical fusion in August 2020.) Social history: other (Uses marijuana occasionally) Family history: no significant family history Medications and Allergies Allergies Allergy/AdvReac Type Severity Reaction Status Date / Time Iodinated Contrast Media Allergy Anaphylaxis Verified 03/03/15 14:31 [Iodinated Contrast Media - IV Dye] NSAIDS (Non-Steroidal Allergy Unknown Verified 02/23/18 17:08 Anti-Inflamma Sulfa (Sulfonamide Allergy Hives Verified 03/03/15 14:31 Antibiotics) hydroxychloroquine sulfate AdvReac TEMP. Verified 03/03/15 14:31 [From Plaquenil] BLINDNESS Home Medications Medication Instructions Recorded Confirmed Last Taken Type Mirtazapine 7.5 mg PO QHS 03/14/17 09/20/21 09/18/21 21:00 History OXcarbazepine [Trileptal] 300 mg PO TID 03/14/17 09/20/21 Unknown History OXcarbazepine [Trileptal] 300 mg PO TID 03/14/17 09/20/21 09/19/21 09:00 History Oxycodone HCl/Acetaminophen 1 each PO Q6HR PRN 03/14/17 09/20/21 Unknown History [Percocet 10/325 mg] Venlafaxine HCl [Effexor Xr] 150 mg PO QDAY 03/14/17 09/20/21 09/19/21 09:00 History predniSONE [Deltasone] 10 mg PO ONCE 03/14/17 09/20/21 Unknown History Folic Acid [Folvite] 1 mg PO BID 09/20/21 09/20/21 09/19/21 09:00 History Gabapentin [Neurontin] 800 mg PO 4XD 09/20/21 09/20/21 Unknown History Robaxin TAB 750 mg PO TID 09/20/21 09/20/21 Unknown History clonazePAM [ Klonopin] 0.5 mg PO BID 09/20/21 09/20/21 09/19/21 09:00 History Active Meds: Active Medications Acetaminophen (Acetaminophen 325 Mg Tab) 650 mg PO Q4H PRN PRN Reason: Pain MILD(1-3)/Fever >100.5/FRIEND Aspirin (Aspirin 325 Mg Tab) 325 mg PO QDAY SHAYNE Atorvastatin Calcium (Atorvastatin 40 Mg Tab) 40 mg PO QHS SHAYNE Bisacodyl (Bisacodyl 10 Mg Rect Supp) 10 mg MO QDAY PRN PRN Reason: Constipation Magnesium Hydroxide (Magnesium Hydroxide (Mom) Oral Liqd Udc) 30 ml PO Q4H PRN PRN Reason: Constipation Magnesium Hydroxide (Magnesium Hydroxide (Mom) Oral Liqd Udc) 30 ml PO Q4H PRN PRN Reason: Constipation Metoclopramide HCl (Metoclopramide 10 Mg Tab) 10 mg PO Q6H PRN PRN Reason: Nausea And Vomiting Morphine Sulfate (Morphine 2 Mg/1 Ml Inj) 2 mg IV Q4H PRN PRN Reason: Pain, Moderate (4-6) Morphine Sulfate (Morphine 4 Mg/1 Ml Inj) 4 mg IV Q4H PRN PRN Reason: Pain , Severe (7-10) Ondansetron HCl (Ondansetron 4 Mg/2 Ml Inj) 4 mg IV Q8H PRN PRN Reason: Nausea And Vomiting Ondansetron HCl (Ondansetron 4 Mg/2 Ml Inj) 4 mg IV Q8H PRN PRN Reason: Nausea And Vomiting Promethazine HCl (Promethazine 25 Mg Rect Supp) 25 mg MO Q6H PRN PRN Reason: Nausea And Vomiting Sodium Chloride (Sodium Chloride 0.9% 10 Ml Flush Syringe) 10 ml IV BID SHAYNE Sodium Chloride (Sodium Chloride 0.9% 10 Ml Flush Syringe) 10 ml IV PRN PRN PRN Reason: LINE FLUSH Sodium Chloride (Sodium Chloride 0.9% 10 Ml Flush Syringe) 10 ml INJ PRN PRN PRN Reason: LINE FLUSH Review of Systems Constitutional: no fever, no chills Ears, nose, mouth and throat: no nasal congestion, no sore throat Cardiovascular: no chest pain, no palpitations Respiratory: no cough, no shortness of breath Gastrointestinal: no abdominal pain, no nausea, no vomiting, no diarrhea Genitourinary Female: no flank pain, no dysuria, no hematuria Musculoskeletal: no neck pain, no low back pain Integumentary: no rash, no pruritis Neurological: no headaches, no confusion Psychiatric: no anxiety, no depression Endocrine: no polyphagia, no polydipsia, no polyuria Past History Past Medical History: renal failure, seizures ( LUPUS. LUMBAR HERNIATION. 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 ANEMIA. INSOMNIA, ANXIETY), other (Depression, insomnia, LUPUS. LUMBAR HERNIATION. 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 ANEMIA. INSOMNIA, ANXIETY) Past Surgical History: cholecystectomy, Other (Tubal ligation, lung biopsy, cervical fusion in August 2020.) Social history: other (Uses marijuana occasionally) Family history: no significant family history Medications and Allergies Allergies Allergy/AdvReac Type Severity Reaction Status Date / Time Iodinated Contrast Media Allergy Anaphylaxis Verified 09/20/21 08:38 [Iodinated Contrast Media - IV Dye] NSAIDS (Non-Steroidal Allergy Unknown Verified 09/20/21 08:38 Anti-Inflamma Sulfa (Sulfonamide Allergy Hives Verified 09/20/21 08:38 Antibiotics) hydroxychloroquine sulfate AdvReac TEMP. Verified 09/20/21 08:38 [From Plaquenil] BLINDNESS Home Medications Medication Instructions Recorded Confirmed Last Taken Type Mirtazapine 7.5 mg PO QHS 03/14/17 09/20/21 09/18/21 21:00 History OXcarbazepine [Trileptal] 300 mg PO TID 03/14/17 09/20/21 09/19/21 History Venlafaxine HCl [Effexor Xr] 150 mg PO QDAY 03/14/17 09/20/21 09/19/21 History Albuterol Sulfate [Proventil Hfa] 2 puff IH TID 09/20/21 09/20/21 09/19/21 History Cholecalciferol Vit D3 [Vitamin D3 1,000 unit PO QDAY 09/20/21 09/20/21 09/19/21 History 1,000 UNIT TAB] Dicyclomine [Bentyl] 10 mg PO TID 09/20/21 09/20/21 Unknown History Folic Acid [Folvite] 2 mg PO BID 09/20/21 09/20/21 09/19/21 09:00 History Gabapentin [Neurontin] 800 mg PO QID 09/20/21 09/20/21 09/19/21 History Iron Fum,Ps/Folic/Bcomp,C No.9 1 each PO QDAY 09/20/21 09/20/21 09/19/21 History [Integra Plus Capsule] Methotrexate Sodium [metHOTREXate] 15 mg IM QWEEK 09/20/21 09/20/21 Unknown History Omeprazole 40 mg PO QDAY 09/20/21 09/20/21 09/19/21 History Ondansetron [Zofran ODT TAB] 8 mg PO Q8HR 09/20/21 09/20/21 09/19/21 History Oxycodone HCl [oxyCODONE] 10 mg PO Q5H PRN 09/20/21 09/20/21 09/19/21 History clonazePAM [ Klonopin] 0.5 mg PO BID 09/20/21 09/20/21 09/19/21 History methOCARBAMOL [Robaxin TAB] 750 mg PO Q8H PRN 09/20/21 09/20/21 09/19/21 History predniSONE 10 mg PO QDAY 09/20/21 09/20/21 09/19/21 History Active Meds: Active Medications Acetaminophen (Acetaminophen 325 Mg Tab) 650 mg PO Q4H PRN PRN Reason: Pain MILD(1-3)/Fever >100.5/FRIEND Atorvastatin Calcium (Atorvastatin 40 Mg Tab) 40 mg PO QHS [facility] Bisacodyl (Bisacodyl 10 Mg Rect Supp) 10 mg MO QDAY PRN PRN Reason: Constipation Clonazepam (Clonazepam 0.5 Mg Tab) 0.5 mg PO BID SHAYNE Folic Acid (Folic Acid 1 Mg Tab) 1 mg PO BID [facility] Heparin Sodium (Porcine) (Heparin 5,000 Unit/1 Ml Vial) 5,000 unit SUB-Q Q8HR [facility] Magnesium Hydroxide (Magnesium Hydroxide (Mom) Oral Liqd Udc) 30 ml PO Q4H PRN PRN Reason: Constipation Metoclopramide HCl (Metoclopramide 10 Mg Tab) 10 mg PO Q6H PRN PRN Reason: Nausea And Vomiting Morphine Sulfate (Morphine 2 Mg/1 Ml Inj) 2 mg IV Q4H PRN PRN Reason: Pain, Moderate (4-6) Morphine Sulfate (Morphine 4 Mg/1 Ml Inj) 4 mg IV Q4H PRN PRN Reason: Pain , Severe (7-10) Ondansetron HCl (Ondansetron 4 Mg/2 Ml Inj) 4 mg IV Q8H PRN PRN Reason: Nausea And Vomiting Oxcarbazepine (Oxcarbazepine 300 Mg Tab) 300 mg PO TID [facility] Promethazine HCl (Promethazine 25 Mg Rect Supp) 25 mg MO Q6H PRN PRN Reason: Nausea And Vomiting Sodium Chloride (Sodium Chloride 0.9% 10 Ml Flush Syringe) 10 ml IV BID SHAYNE Sodium Chloride (Sodium Chloride 0.9% 10 Ml Flush Syringe) 10 ml IV PRN PRN PRN Reason: LINE FLUSH Venlafaxine HCl (Venlafaxine Xr 75 Mg Cap) 150 mg PO QDAY [facility] Physical Examination - Vital Signs Vital Signs: Vital Signs Temp Pulse Resp BP Pulse Ox 98.3 F 100 H 16 115/72 96 09/19/21 14:23 09/19/21 14:23 09/19/21 14:23 09/19/21 14:23 09/19/21 14:23 - Constitutional General appearance: comfortable - EENT EENT: Present: PERRL, mucous membranes moist - Respiratory Respiratory: Present: chest non-tender, lungs clear, rhonchi - Cardiovascular Cardiovascular: Present: regular rate, normal S1, normal S2 Extremities: Present: no peripheral edema bilatateraly, no clubbing, cyanosis - Gastrointestinal Gastrointestinal: Present: normoactive bowel sounds - Integumentary Integumentary: Present: normal - Neurologic Cranial nerve examination: PERRL, EOMI, intact Speech examination: intact Sensorimotor examination: intact Detailed motor examination: grossly full strength in, other (reflexes 2+ bilateral absent preston sign , no clonus, gait not done) - Level of Consciousness 1a. Level of Consciousness: alert/keenly responsive - LOC Questions 1b. LOC Questions: answers both correctly - LOC Command 1c. LOC Commands: performs tasks correctly - Best Gaze 2. Best Gaze: normal - Visual 3. Visual: no visual loss - Facial Palsy 4. Facial Palsy: normal symmetrical movement - Motor Arm 5a. Motor Arm Left: no drift 5b. Motor Arm Right: no drift - Motor Leg 6a. Motor Leg Left: no drift 6b. Motor Leg Right: no drift - Limb Ataxia 7. Limb Ataxia: absent - Sensory 8. Sensory: normal - Best Language 9. Best Language: no aphasia - Dysarthria 10. Dysarthria: normal - Extinction and Inattention 11. Extinction/Inattention: no abnormality - Scoring Total Score: 0 Stroke Severity: No Stroke Symptoms Results - Laboratory Findings CBC and BMP: 09/19/21 20:21 09/20/21 09:26 Abnormal Lab Findings: Abnormal Labs 09/19/21 09/19/21 09/19/21 20:21 20:21 20:21 MCH 26 L RDW 17.0 H PT 15.1 H APTT 41.2 H Carbon Dioxide 20 L Albumin 5.1 H Ur Specific [place] Urine WBC (Auto) 09/20/21 05:55 MCH RDW PT APTT Carbon Dioxide Albumin Ur Specific [place] 1.053 H Urine WBC (Auto) 10.0 H Assessment and Plan Assessment and Plan 46-year-old -Russian female with known history of seizure disorder, lupus, cervical radiculopathy, anxiety with depression presents to the emergency room today with complaints with difficulty with her speech. She also indicates that she has had difficulty ambulating and unable to bear weight. CT head stroke protocol was therefore initiated. Patient denies any headache or dizziness denies any diaphoresis. She denies any blurry vision. No nausea or vomiting and no diarrhea. Patient denies any sick contacts and no recent travel. Denies any contact with anyone with COVID-19. Review of patient's medications indicates she takes about 17 medications as listed below: # Pt. preesnted with slurred speech and unsteady gait -today NIH#0 -CT brain is unremarkable -she is with mild hypotension -she is with excessive intake of multiple medication at home for pain -with possibility of medication effect can not be excluded -suggest cut down neurontine to 400 mg TID -stop Roboxin -cut down Hydrocodon to tid pRN -Brain MRI R/O CVA -- If MRI brain is unremarkable will stop further CVA work up !!! #Hx of seizure -for over 14 years -with possibility of seizure can not be excluded -she is complying with her trileptal at 300 mg tid ---will change to 600 mg BID -follow up with her neurologist -side effect form valproic and and other seizure medication -try Keppra 1000 mg bid -seizure precaution - # hx of cervical disc disease -s/p surgery in 09/2020 Cervical fusion - she is with bladder incontince and brisk reflexes no clear sign of mylopathy on exam -will get MRI cervical spine with Gd -follow up with her orthopedic surgery # Hx of Lupus -followed by rheumatology -maintain home med. # Hx of underlying anxiety and depression. -maintain home med. DVT prophylaxis: Subcutaneous heparin CODE STATUS: Full code
[2021-09-20] MEDS: MORPHINE 2 MG/1 ML INJ IV PRN ×2 (08:49→11:25)
[2021-09-20] MEDS: FOLIC ACID 1 MG TAB PO SCH ×2 (09:06→21:35)
[2021-09-20] MEDS: VENLAFAXINE XR 75 MG CAP PO SCH (09:15)
[2021-09-20] MEDS: clonazePAM 0.5 MG TAB PO SCH ×2 (09:15→21:35)
[2021-09-20] MEDS ORDERED: ASPIRIN 325 MG TAB PO SCH (10:00)
[2021-09-20] MEDS ORDERED: NON-FORMULARY EACH (Venlafaxine Hcl [Effexor Xr] 150 MG Cap.Er.24h) PO SCH (10:00)
[2021-09-20 10:17] LABS: BUN/Creatinine Ratio 13; Blood Urea Nitrogen 10 mg/dL (7-17); Calcium 9.2 mg/dL (8.4-10.2); Hemolysis Index 5
--- NOTE | 2021-09-20 10:22 | Electrocardiograph Report ---
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
[2021-09-20] MEDS ORDERED: LORazepam 2 MG/ML VIAL IV SCH (10:30)
[2021-09-20] MEDS ORDERED: oxyCODONE 5 MG TAB PO PRN (11:00)
--- NOTE | 2021-09-20 13:43 | Progress Note ---
Hospitalist Physical - Constitutional Vitals: Temp Pulse Resp BP Pulse Ox 98.0 F 85 18 110/70 98 09/20/21 07:48 09/20/21 07:48 09/20/21 07:48 09/20/21 07:48 09/20/21 07:48 General appearance: Present: no acute distress, well-nourished HEART Score - HEART Score Troponin: Troponin T < 0.010 ng/mL (0.00-0.029) 09/19/21 20: Results - Labs CBC & Chem 7: 09/19/21 20:21 09/20/21 09:26 Labs: Laboratory Last Values WBC 5.5 K/mm3 (4.5-11.0) 09/19/21 20: RBC 4.66 M/mm3 (3.65-5.03) 09/19/21 20: Hgb 12.3 gm/dl (10.1-14.3) 09/19/21 20: Hct 39.7 % (30.3-42.9) 09/19/21 20: MCV 85 fl (79-97) 09/19/21 20:21 MCH 26 pg (28-32) L 09/19/21 20: MCHC 31 % (30-34) 09/19/21 20: RDW 17.0 % (13.2-15.2) H 09/19/21 20: Plt Count 209 K/mm3 (140-440) 09/19/21 20:21 Lymph % (Auto) 28.9 % (13.4-35.0) 09/19/21 20: [place] % (Auto) 5.1 % (0.0-7.3) 09/19/21 20: Eos % (Auto) 0.2 % (0.0-4.3) 09/19/21 20: Baso % (Auto) 1.1 % (0.0-1.8) 09/19/21 20: Lymph # (Auto) 1.6 K/mm3 (1.2-5.4) 09/19/21 20:21 [place] # (Auto) 0.3 K/mm3 (0.0-0.8) 09/19/21 20: Eos # (Auto) 0.0 K/mm3 (0.0-0.4) 09/19/21 20:21 Baso # (Auto) 0.1 K/mm3 (0.0-0.1) 09/19/21 20:21 Seg Neutrophils % 64.7 % (40.0-70.0) 09/19/21 20:21 Seg Neutrophils # 3.5 K/mm3 (1.8-7.7) 09/19/21 20:21 PT 15.1 Sec. (12.2-14.9) H 09/19/21 20:21 INR 1.07 (0.87-1.13) 09/19/21 20:21 APTT 41.2 Sec. (24.2-36.6) H 09/19/21 20:21 Sodium 139 mmol/L (137-145) 09/20/21 09:26 Potassium 3.5 mmol/L (3.6-5.0) L 09/20/21 09:26 Chloride 105.0 mmol/L (98-107) 09/20/21 09:26 Carbon Dioxide 22 mmol/L (22-30) 09/20/21 09:26 Anion Gap 16 mmol/L 09/20/21 09:26 BUN 10 mg/dL (7-17) 09/20/21 09:26 Creatinine 0.8 mg/dL (0.6-1.2) 09/20/21 09:26 Estimated GFR > 60 ml/min 09/20/21 09:26 BUN/Creatinine Ratio 13 % 09/20/21 09:26 Glucose 98 mg/dL (65-100) 09/20/21 09:26 Calcium 9.2 mg/dL (8.4-10.2) 09/20/21 09:26 Total Bilirubin 0.40 mg/dL (0.1-1.2) 09/19/21 20:21 AST 20 units/L (5-40) 09/19/21 20:21 ALT 20 units/L (7-56) 09/19/21 20:21 Alkaline Phosphatase 74 units/L (35-129) 09/19/21 20:21 Troponin T < 0.010 ng/mL (0.00-0.029) 09/19/21 20:21 Total Protein 7.8 g/dL (6.3-8.2) 09/19/21 20:21 Albumin 5.1 g/dL (3.9-5) H 09/19/21 20:21 Albumin/Globulin Ratio 1.9 % 09/19/21 20:21 Urine Color Yellow (Yellow) 09/20/21 05:55 Urine Turbidity Clear (Clear) 09/20/21 05:55 Urine pH 5.0 (5.0-7.0) 09/20/21 05:55 Ur Specific [place] 1.053 (1.003-1.030) H 09/20/21 05:55 Urine Protein 30 mg/dl mg/dL (Negative) 09/20/21 05:55 Urine Glucose (UA) Neg mg/dL (Negative) 09/20/21 05:55 Urine Ketones Neg mg/dL (Negative) 09/20/21 05:55 Urine Blood Neg (Negative) 09/20/21 05:55 Urine Nitrite Neg (Negative) 09/20/21 05:55 Urine Bilirubin Mod (Negative) 09/20/21 05:55 Urine Ictotest Negative (Negative) 09/20/21 05:55 Urine Urobilinogen < 2.0 mg/dL (<2.0) 09/20/21 05:55 Ur Leukocyte Esterase Neg (Negative) 09/20/21 05:55 Urine WBC (Auto) 10.0 /HPF (0.0-6.0) H 09/20/21 05:55 Urine RBC (Auto) 12.0 /HPF (0.0-6.0) 09/20/21 05:55 U Epithel Cells (Auto) 8.0 /HPF (0-13.0) 09/20/21 05:55 Urine Bacteria (Auto) 1+ /HPF (Negative) 09/20/21 05:55 Urine Opiates Screen Negative 09/20/21 06:15 Urine Methadone Screen Negative 09/20/21 06:15 Ur Barbiturates Screen Negative 09/20/21 06:15 Ur Phencyclidine Scrn Negative 09/20/21 06:15 Ur Amphetamines Screen Presumptive positive 09/20/21 06:15 U Benzodiazepines Scrn Presumptive positive 09/20/21 06:15 Urine Cocaine Screen Negative 09/20/21 06:15 U Marijuana (THC) Screen Negative 09/20/21 06:15 Drugs of Abuse Note Disclamer 09/20/21 06:15 Plasma/Serum Alcohol < 0.01 % (0-0.07) 09/19/21 20:21 Active Medications - Current Medications Current Medications: Generic Name Dose Route Start Last Admin Trade Name Freq PRN Reason Stop Dose Admin Acetaminophen 650 mg 09/19/21 23:22 Acetaminophen 325 Mg Tab PO Q4H PRN Pain MILD(1-3)/Fever >100.5/FRIEND Atorvastatin Calcium 40 mg 09/20/21 22:00 Atorvastatin 40 Mg Tab PO QHS SHAYNE Bisacodyl 10 mg 09/19/21 23:22 Bisacodyl 10 Mg Rect Supp LA QDAY PRN Constipation Clonazepam 0.5 mg 09/20/21 10:00 09/20/21 09:15 Clonazepam 0.5 Mg Tab PO 0.5 mg BID SHAYNE Administration Folic Acid 1 mg 09/20/21 10:00 09/20/21 09:06 Folic Acid 1 Mg Tab PO 1 mg BID SHAYNE Administration Gabapentin 400 mg 09/20/21 14:00 Gabapentin 400 Mg Cap PO TID [facility] Heparin Sodium (Porcine) 5,000 unit 09/20/21 14:00 Heparin 5,000 Unit/1 Ml Vial SUB-Q Q8HR [facility] Lorazepam 1 mg 09/20/21 10:30 Lorazepam 2 Mg/Ml Vial IV 09/20/21 16:00 ONCE@1030 [facility] Magnesium Hydroxide 30 ml 09/19/21 23:22 Magnesium Hydroxide (Mom) Oral Liqd Udc PO Q4H PRN Constipation Metoclopramide HCl 10 mg 09/19/21 23:22 Metoclopramide 10 Mg Tab PO Q6H PRN Nausea And Vomiting Morphine Sulfate 2 mg 09/19/21 23:22 09/20/21 11:25 Morphine 2 Mg/1 Ml Inj IV 2 mg Q4H PRN Administration Pain, Moderate (4-6) Morphine Sulfate 4 mg 09/19/21 23:22 Morphine 4 Mg/1 Ml Inj IV Q4H PRN Pain , Severe (7-10) Ondansetron HCl 4 mg 09/19/21 23:22 Ondansetron 4 Mg/2 Ml Inj IV Q8H PRN Nausea And Vomiting Oxcarbazepine 600 mg 09/20/21 22:00 Oxcarbazepine 300 Mg Tab PO BID [facility] Oxycodone HCl 10 mg 09/20/21 11:00 Oxycodone 5 Mg Tab PO Q6H PRN Pain , Severe (7-10) Oxycodone HCl 5 mg 09/20/21 11:00 Oxycodone 5 Mg Tab PO Q6H PRN Pain, Moderate (4-6) Promethazine HCl 25 mg 09/19/21 23:22 Promethazine 25 Mg Rect Supp [place] Q6H PRN Nausea And Vomiting Sodium Chloride 10 ml 09/20/21 10:00 09/20/21 09:17 Sodium Chloride 0.9% 10 Ml Flush Syringe IV 10 ml BID SHAYNE Administration Sodium Chloride 10 ml 09/19/21 23:22 Sodium Chloride 0.9% 10 Ml Flush Syringe IV PRN PRN LINE FLUSH Venlafaxine HCl 150 mg 09/20/21 10:00 09/20/21 09:15 Venlafaxine Xr 75 Mg Cap PO 150 mg QDAY SHAYNE Administration Nutrition/Malnutrition Assess - Dietary Evaluation Nutrition/Malnutrition Findings: Nutrition Notes Start: 09/20/21 12:19 Freq: Status: Active Protocol: Document 09/20/21 12:19 TIFFANIE (Rec: 09/20/21 12:26 TIFFANIE [id number]) Nutrition Notes Need for Assessment generated from: MD Order,Education Initial or Follow up Brief Note Other Pertinent Diagnosis CVA pui, Dysarthria, Polypharmacy, Unsteady gait. Current Diet Cardiac Diet (since B 09/20). Height 5 ft 10 in Weight 77.111 kg [place] Body Weight (kg) 68.18 BMI 24.3 Intake Prior to Admission Good Weight change and time frame Pt states being unsure ifd loss body weight recently. Weight Status Appropriate Subjective/Other Information RD consult for Nutrition Education. No report availble on Pt's PO intake at the time. Pt still on ED, not a candidate for Nutrition Education at the time, will assess feasibility on F/U. Percent of energy/protein needs met: Prescribed Cardiac Diet provides for energy/protein needs (2,230 Kcal/85 g) during LOS. Nutrition Intervention Follow-Up By: 09/27/21 Additional Comments Nutrition education will be provided on F/U, if feasible. Continue monitoring food tolerance, %PO intake of meals , and BM.
[2021-09-20] MEDS ORDERED: GABAPENTIN 400 MG CAP PO SCH (14:00)
--- NOTE | 2021-09-20 14:40 | Magnetic Resonance Report ---
MR cervical spine wo/w con INDICATION / CLINICAL INFORMATION: 46 years Female; weakness RT. SIDE CERVICAL FUSION. TECHNIQUE: Multisequence, multiplanar images of the cervical spine were obtained. COMPARISON: None available. FINDINGS: POST-SURGICAL CHANGES: Anterior fusion hardware seen from C4 C7. CRANIOCERVICAL JUNCTION:No significant abnormality. ALIGNMENT: No significant abnormality. VERTEBRAE:Grossly normal marrow signal and vertebral body height for age. VISUALIZED SPINAL CORD: No significant abnormality. INTERVERTEBRAL DISCS: Desiccation seen at nonoperative levels. [id number] ANALYSIS: C2-3: No significant abnormality. C3-4: Small posterocentral disc protrusion. Mild foraminal narrowing on the right from uncinate hyper trophy. Mild facet hypertrophy. C4-5: As above. No significant canal stenosis or foraminal narrowing. C5-6: As above. No significant canal stenosis or foraminal narrowing. C6-7: As above. Mild foraminal narrowing on the right from uncinate hypertrophy. C7-T1: Mild disc bulge and bilateral facet hypertrophy. Moderate foraminal narrowing is seen on the r ight with encroachment upon the right C8 nerve. Mild foraminal narrowing on the left. PARASPINAL SOFT TISSUES: No significant abnormality. ADDITIONAL FINDINGS: I see no enhancement IMPRESSION: 1. Degenerative and postoperative changes of the cervical spine, as described above. Most marked find ings appear to be at C7-T1. Please correlate with dermatomal distribution of patient's symptoms, if p resent. Signer Name: Ck Burden MD, III Signed: 09/20/2021 2:36 PM Workstation Name: [id number]
--- NOTE | 2021-09-20 14:51 | Vascular Lab Report ---
"DUPLEX DOPPLER ULTRASOUND CAROTID, BILATERAL INDICATION / CLINICAL INFORMATION: stroke. COMPARISON: None available. FINDINGS: RIGHT CAROTID: - PLAQUE ESTIMATE (%): < 50% - CCA velocity: 111 cm/sec. - ICA peak systolic velocity: 1 2 cm/sec. - ICA/CCA PSV Ratio: 0.9 Right Vertebral Artery: Antegrade flow. LEFT CAROTID: - PLAQUE ESTIMATE: < 50% - CCA velocity: 133 cm/sec. - ICA peak systolic velocity: 99 cm/sec. - ICA/CCA PSV Ratio: 1.0 Left Vertebral Artery: Antegrade flow. IMPRESSION: 1. Right Internal Carotid Artery: Less than 50% diameter stenosis. 2. Left Internal Carotid Artery: Less than 50% diameter stenosis. Velocity criteria are extrapolated from diameter data as defined by the Society of Radiologists in [facility] Consensus Conference, Radiology 2003; 229;340-346. Degree of || ICA PSV || Plaque || ICA/CCA Stenosis (%) || (cm/sec) || estimate (%) || PSV Ratio Normal ............. || ...<125........... || ...None......... || ...<2.0 <50................... || ...<125........... || ......<50......... || ...<2.0 50-69................ || ..125-230...... || ......>50......... || 2.0-4.0 >70 but <100... || >230.............. || .......>50........ || ...>4.0 Near occlusion || High/low/none || ...visible....... || variable Total occlusion || ....None........... || ..no lumen... || ....N/A Signer Name: Hemal Dover MD Signed: 09/20/2021 2:46 PM Workstation Name: [id number]"
--- NOTE | 2021-09-20 15:14 | Magnetic Resonance Report ---
MR brain wo con INDICATION / CLINICAL INFORMATION: 46 years Female; stroke, RT SIDED WEAKNESS. TECHNIQUE: Multiplanar, multisequence MR images of the brain were obtained. COMPARISON: None available. FINDINGS: BRAIN / INTRACRANIAL CONTENTS: No acute hemorrhage, mass effect, midline shift, hydrocephalus, or acu te, large territorial infarct. No chronic infarct or atrophy. There are mild to moderate areas of increased signal intensity on FLAIR imaging in the white matter o f the cerebral hemispheres, with a prevalence seen posteriorly along the periventricular white matter . These are nonspecific findings and may be related to microangiopathy (hypertension, diabetes, ather osclerosis), demyelinating disease, etc. given the patient's age. CRANIOCERVICAL JUNCTION: No significant abnormality. VASCULAR FLOW-VOIDS: No significant abnormality. ORBITS: No significant abnormality of visualized orbits. SINUSES / MASTOIDS: Minimal mucosal thickening in the ethmoids. ADDITIONAL FINDINGS: None. IMPRESSION: 1. No focal mass, hemorrhage, hydrocephalus, or acute ischemia. Signer Name: Ck Burden MD, III Signed: 09/20/2021 3:09 PM Workstation Name: [id number]
[2021-09-20] MEDS: GABAPENTIN 400 MG CAP PO SCH ×2 (15:22→20:02)
[2021-09-20] MEDS: HEPARIN 5,000 UNIT/1 ML VIAL SUB-Q SCH ×2 (15:22→21:34)
[2021-09-20] MEDS: oxyCODONE 5 MG TAB PO PRN ×2 (15:23→21:35)
--- NOTE | 2021-09-20 15:51 | Discharge Summary ---
Providers - Providers Date of Admission: 09/19/21 23:22 Attending physician: VALERIANO MUSE MD 09/19/21 23:22 Consult to Dietitian/Nutrition [CONS] Routine Physician Instructions: Reason For Exam: Reason for Consult: Nutrition Recommendations Reason for Consult: Diet education Consult to Physician [CONS] Routine Comment: Consulting Provider: JESSY BRYANT Physician Instructions: Reason For Exam: Dysarthria,Ataxia Occupational Therapy Evaluate and Treat [CONS] Routine Comment: Reason For Exam: Neuro deficits Physical Therapy Evaluation and Treat [CONS] Routine Comment: Reason For Exam: Neuro deficits 09/19/21 23:27 Speech Therapy Evaluation and Treat [CONS] Routine Reason For Exam: swallow eval Primary care physician: [employer] Hospitalization Condition: Stable Exam - Constitutional Vitals: Temp Pulse Resp BP Pulse Ox 98.0 F 85 18 110/70 98 09/20/21 07:48 09/20/21 07:48 09/20/21 07:48 09/20/21 07:48 09/20/21 07:48 Plan Care Plan Goals: Please follow-up with your primary care and mural painter. We are concerned that you are taking too many medications that can interact and cause sedation. We have sent updated scripts to your pharmacy. Please take them to your next PCP/pain management appointment. Your echocardiogram showed no referral abnormalities of your heart. The CT and MRI of your brain did not show any evidence of stroke or masses. The MRI of your cervical spine did show degenerative and postsurgical changes throughout the cervical spine. Make sure to follow-up with your orthopedic appointment next week. Xrays of the right hip and neck did not show any fractures or acute changes to explain your pain. Also, follow-up with your neurologist post discharge. Follow up with: KERRY LUNA MD [Staff Physician] - 3-5 Days Prescriptions: AtorvaSTATin [Lipitor] 40 mg PO QHS 30 Days #30 tablet Gabapentin 400 mg PO TID 30 Days #90 capsule levETIRAcetam [Keppra TAB] 1,000 mg PO BID 30 Days #120 tablet OXcarbazepine [Trileptal] 600 mg PO BID 30 Days #120 tablet
--- NOTE | 2021-09-20 16:03 | Progress Note ---
Hospitalist Physical - Constitutional Vitals: Temp Pulse Resp BP Pulse Ox 98.0 F 85 18 110/70 99 09/20/21 07:48 09/20/21 07:48 09/20/21 07:48 09/20/21 07:48 09/20/21 15:39 General appearance: Present: no acute distress, well-nourished HEART Score - HEART Score Troponin: Troponin T < 0.010 ng/mL (0.00-0.029) 09/19/21 20: Results - Labs CBC & Chem 7: 09/19/21 20:21 09/20/21 09:26 Labs: Laboratory Last Values WBC 5.5 K/mm3 (4.5-11.0) 09/19/21 20: RBC 4.66 M/mm3 (3.65-5.03) 09/19/21 20: Hgb 12.3 gm/dl (10.1-14.3) 09/19/21 20: Hct 39.7 % (30.3-42.9) 09/19/21 20: MCV 85 fl (79-97) 09/19/21 20:21 MCH 26 pg (28-32) L 09/19/21 20: MCHC 31 % (30-34) 09/19/21 20: RDW 17.0 % (13.2-15.2) H 09/19/21 20: Plt Count 209 K/mm3 (140-440) 09/19/21 20:21 Lymph % (Auto) 28.9 % (13.4-35.0) 09/19/21 20: Rains % (Auto) 5.1 % (0.0-7.3) 09/19/21 20: Eos % (Auto) 0.2 % (0.0-4.3) 09/19/21 20: Baso % (Auto) 1.1 % (0.0-1.8) 09/19/21 20: Lymph # (Auto) 1.6 K/mm3 (1.2-5.4) 09/19/21 20: Rains # (Auto) 0.3 K/mm3 (0.0-0.8) 09/19/21 20: Eos # (Auto) 0.0 K/mm3 (0.0-0.4) 09/19/21 20:21 Baso # (Auto) 0.1 K/mm3 (0.0-0.1) 09/19/21 20:21 Seg Neutrophils % 64.7 % (40.0-70.0) 09/19/21 20:21 Seg Neutrophils # 3.5 K/mm3 (1.8-7.7) 09/19/21 20:21 PT 15.1 Sec. (12.2-14.9) H 09/19/21 20:21 INR 1.07 (0.87-1.13) 09/19/21 20:21 APTT 41.2 Sec. (24.2-36.6) H 09/19/21 20:21 Sodium 139 mmol/L (137-145) 09/20/21 09:26 Potassium 3.5 mmol/L (3.6-5.0) L 09/20/21 09:26 Chloride 105.0 mmol/L (98-107) 09/20/21 09:26 Carbon Dioxide 22 mmol/L (22-30) 09/20/21 09:26 Anion Gap 16 mmol/L 09/20/21 09:26 BUN 10 mg/dL (7-17) 09/20/21 09:26 Creatinine 0.8 mg/dL (0.6-1.2) 09/20/21 09:26 Estimated GFR > 60 ml/min 09/20/21 09:26 BUN/Creatinine Ratio 13 % 09/20/21 09:26 Glucose 98 mg/dL (65-100) 09/20/21 09:26 Calcium 9.2 mg/dL (8.4-10.2) 09/20/21 09:26 Total Bilirubin 0.40 mg/dL (0.1-1.2) 09/19/21 20:21 AST 20 units/L (5-40) 09/19/21 20:21 ALT 20 units/L (7-56) 09/19/21 20:21 Alkaline Phosphatase 74 units/L (35-129) 09/19/21 20:21 Troponin T < 0.010 ng/mL (0.00-0.029) 09/19/21 20:21 Total Protein 7.8 g/dL (6.3-8.2) 09/19/21 20:21 Albumin 5.1 g/dL (3.9-5) H 09/19/21 20:21 Albumin/Globulin Ratio 1.9 % 09/19/21 20:21 Urine Color Yellow (Yellow) 09/20/21 05:55 Urine Turbidity Clear (Clear) 09/20/21 05:55 Urine pH 5.0 (5.0-7.0) 09/20/21 05:55 Ur Specific Reading 1.053 (1.003-1.030) H 09/20/21 05:55 Urine Protein 30 mg/dl mg/dL (Negative) 09/20/21 05:55 Urine Glucose (UA) Neg mg/dL (Negative) 09/20/21 05:55 Urine Ketones Neg mg/dL (Negative) 09/20/21 05:55 Urine Blood Neg (Negative) 09/20/21 05:55 Urine Nitrite Neg (Negative) 09/20/21 05:55 Urine Bilirubin Mod (Negative) 09/20/21 05:55 Urine Ictotest Negative (Negative) 09/20/21 05:55 Urine Urobilinogen < 2.0 mg/dL (<2.0) 09/20/21 05:55 Ur Leukocyte Esterase Neg (Negative) 09/20/21 05:55 Urine WBC (Auto) 10.0 /HPF (0.0-6.0) H 09/20/21 05:55 Urine RBC (Auto) 12.0 /HPF (0.0-6.0) 09/20/21 05:55 U Epithel Cells (Auto) 8.0 /HPF (0-13.0) 09/20/21 05:55 Urine Bacteria (Auto) 1+ /HPF (Negative) 09/20/21 05:55 Urine Opiates Screen Negative 09/20/21 06:15 Urine Methadone Screen Negative 09/20/21 06:15 Ur Barbiturates Screen Negative 09/20/21 06:15 Ur Phencyclidine Scrn Negative 09/20/21 06:15 Ur Amphetamines Screen Presumptive positive 09/20/21 06:15 U Benzodiazepines Scrn Presumptive positive 09/20/21 06:15 Urine Cocaine Screen Negative 09/20/21 06:15 U Marijuana (THC) Screen Negative 09/20/21 06:15 Drugs of Abuse Note Disclamer 09/20/21 06:15 Plasma/Serum Alcohol < 0.01 % (0-0.07) 09/19/21 20:21 Active Medications - Current Medications Current Medications: Generic Name Dose Route Start Last Admin Trade Name Freq PRN Reason Stop Dose Admin Acetaminophen 650 mg 09/19/21 23:22 Acetaminophen 325 Mg Tab PO Q4H PRN Pain MILD(1-3)/Fever >100.5/FRIEND Atorvastatin Calcium 40 mg 09/20/21 22:00 Atorvastatin 40 Mg Tab PO QHS [facility] Bisacodyl 10 mg 09/19/21 23:22 Bisacodyl 10 Mg Rect Supp NE QDAY PRN Constipation Clonazepam 0.5 mg 09/20/21 10:00 09/20/21 09:15 Clonazepam 0.5 Mg Tab PO 0.5 mg BID SHAYNE Administration Folic Acid 1 mg 09/20/21 10:00 09/20/21 09:06 Folic Acid 1 Mg Tab PO 1 mg BID SHAYNE Administration Gabapentin 400 mg 09/20/21 14:00 09/20/21 15:22 Gabapentin 400 Mg Cap PO 400 mg TID SHAYNE Administration Heparin Sodium (Porcine) 5,000 unit 09/20/21 14:00 09/20/21 15:22 Heparin 5,000 Unit/1 Ml Vial SUB-Q 5,000 unit Q8HR SHAYNE Administration Levetiracetam 1,000 mg 09/20/21 22:00 Levetiracetam 500 Mg Tab PO BID [facility] Magnesium Hydroxide 30 ml 09/19/21 23:22 Magnesium Hydroxide (Mom) Oral Liqd Udc PO Q4H PRN Constipation Metoclopramide HCl 10 mg 09/19/21 23:22 Metoclopramide 10 Mg Tab PO Q6H PRN Nausea And Vomiting Mirtazapine 7.5 mg 09/20/21 22:00 Mirtazapine 15 Mg Tab PO QHS [facility] Morphine Sulfate 2 mg 09/19/21 23:22 09/20/21 11:25 Morphine 2 Mg/1 Ml Inj IV 2 mg Q4H PRN Administration Pain, Moderate (4-6) Morphine Sulfate 4 mg 09/19/21 23:22 Morphine 4 Mg/1 Ml Inj IV Q4H PRN Pain , Severe (7-10) Ondansetron HCl 4 mg 09/19/21 23:22 Ondansetron 4 Mg/2 Ml Inj IV Q8H PRN Nausea And Vomiting Oxcarbazepine 600 mg 09/20/21 22:00 Oxcarbazepine 300 Mg Tab PO BID SHAYNE Oxycodone HCl 10 mg 09/20/21 11:00 09/20/21 15:23 Oxycodone 5 Mg Tab PO 10 mg Q6H PRN Administration Pain , Severe (7-10) Oxycodone HCl 5 mg 09/20/21 11:00 Oxycodone 5 Mg Tab PO Q6H PRN Pain, Moderate (4-6) Prednisone 10 mg 09/20/21 16:00 Prednisone 10 Mg Tab PO QDAY SHAYNE Promethazine HCl 25 mg 09/19/21 23:22 Promethazine 25 Mg Rect Supp NE Q6H PRN Nausea And Vomiting Sodium Chloride 10 ml 09/20/21 10:00 09/20/21 09:17 Sodium Chloride 0.9% 10 Ml Flush Syringe IV 10 ml BID SHAYNE Administration Sodium Chloride 10 ml 09/19/21 23:22 Sodium Chloride 0.9% 10 Ml Flush Syringe IV PRN PRN LINE FLUSH Venlafaxine HCl 150 mg 09/20/21 10:00 09/20/21 09:15 Venlafaxine Xr 75 Mg Cap PO 150 mg QDAY SHAYNE Administration Nutrition/Malnutrition Assess - Dietary Evaluation Nutrition/Malnutrition Findings: Nutrition Notes Start: 09/20/21 12:19 Freq: Status: Active Protocol: Document 09/20/21 12:19 TIFFANIE (Rec: 09/20/21 12:26 TIFFANIE [id number]) Nutrition Notes Need for Assessment generated from: MD Order,Education Initial or Follow up Assessment Other Pertinent Diagnosis CVA pui, Dysarthria, Polypharmacy, Unsteady gait. Current Diet Cardiac Diet (since B 09/20). Labs/Tests 09/20: K 3.5. Pertinent Medications 09/20: Folic Acid, others nutritionally unremarkable. Height 5 ft 10 in Weight 77.111 kg [place] Body Weight (kg) 68.18 BMI 24.3 Intake Prior to Admission Good Weight change and time frame Pt states being unsure if loss body weight recently. Weight Status Appropriate Subjective/Other Information RD consult for Malnutrition risk and Nutrition Education. No report availble on Pt's PO intake at the time. Pt shows no signs of risk of malnutrition at the time, according to Physical Assessment History notes. Pt still on ED, not a candidate for Nutrition Education at the time, will assess feasibility on F/U. Percent of energy/protein needs met: Prescribed Cardiac Diet provides for energy/protein needs (2,230 Kcal/85 g) during LOS. Burn Absent Trauma Absent GI Symptoms None Food Allergy No Skin Integrity/Comment Unspecified Area of Concern. Minimum of two criteria No Nutrition Intervention Follow-Up By: 09/27/21 Additional Comments Nutrition education will be provided on F/U, if feasible. Continue monitoring food tolerance, %PO intake of meals , and BM.
[2021-09-20] MEDS ORDERED: SODIUM CHLORIDE 0.9% 1000 ML 1,000 ML IV SCH (17:00)
[2021-09-20] MEDS: predniSONE 10 MG TAB PO SCH (17:06)
[2021-09-20 18:27] LABS: Blood Urea Nitrogen 11 mg/dL (7-17); Calcium 9.4 mg/dL (8.4-10.2); Hemolysis Index 37
[2021-09-20 18:35] LABS: BUN/Creatinine Ratio 16
[2021-09-20] MEDS: levETIRAcetam 500 MG TAB PO SCH (20:02)
[2021-09-20] MEDS: OXcarbazepine 300 MG TAB PO SCH (21:34)
[2021-09-20] MEDS ORDERED: MIRTAZAPINE 15 MG TAB PO SCH (22:00)
[2021-09-21] MEDS: oxyCODONE 5 MG TAB PO PRN ×2 (06:12→12:37)
[2021-09-21] MEDS: HEPARIN 5,000 UNIT/1 ML VIAL SUB-Q SCH ×2 (06:12→14:31)
[2021-09-21] MEDS: GABAPENTIN 400 MG CAP PO SCH ×2 (08:54→14:23)
[2021-09-21] MEDS: OXcarbazepine 300 MG TAB PO SCH (09:02)
[2021-09-21] MEDS: predniSONE 10 MG TAB PO SCH (09:03)
[2021-09-21] MEDS: levETIRAcetam 500 MG TAB PO SCH (09:03)
[2021-09-21] MEDS: FOLIC ACID 1 MG TAB PO SCH (09:03)
[2021-09-21] MEDS: clonazePAM 0.5 MG TAB PO SCH (09:03)
[2021-09-21] MEDS: VENLAFAXINE XR 75 MG CAP PO SCH (09:03)
[2021-09-21] MEDS: MORPHINE 2 MG/1 ML INJ IV PRN ×2 (09:04→14:23)
--- NOTE | 2021-09-21 11:58 | XRay Report ---
NECK SOFT TISSUE 2 VIEW(S) INDICATION / CLINICAL INFORMATION: neck pain post fall COMPARISON: MRI cervical spine with and without contrast performed on 09/20/2021. FINDINGS: EPIGLOTTIS: No significant abnormality. RETROPHARYNGEAL SOFT TISSUES: No significant abnormality. AIRWAY: No significant abnormality. RADIOPAQUE FOREIGN BODY: None. SKELETAL SYSTEM: Multilevel anterior annular body fusion of the cervical spine appears unremarkable. No acute findings. ADDITIONAL FINDINGS: None. IMPRESSION: No acute findings to explain the patient's neck pain. Signer Name: Wan Bone MD Signed: 09/21/2021 11:53 AM Workstation Name: [id number]
--- NOTE | 2021-09-21 12:01 | XRay Report ---
RIGHT HIP 2 VIEWS INDICATION / CLINICAL INFORMATION: Right hip pain. COMPARISON: None available. FINDINGS: BONES and JOINT(S): No acute fracture or subluxation. No significant arthritis. SOFT TISSUES: No significant abnormality. ADDITIONAL FINDINGS: None. IMPRESSION: No significant abnormality of the right hip. Signer Name: Wan Bone MD Signed: 09/21/2021 11:56 AM Workstation Name: [id number]
[2021-09-21 12:50] VITALS: BP 110/72
--- NOTE | 2021-09-21 13:05 | Progress Note ---
Assessment and Plan Assessment and Plan 46-year-old -[place] female with known history of seizure disorder, lupus, cervical radiculopathy, anxiety with depression presents to the emergency room today with complaints with difficulty with her speech. She also indicates that she has had difficulty ambulating and unable to bear weight. CT head stroke protocol was therefore initiated. Patient denies any headache or dizziness denies any diaphoresis. She denies any blurry vision. No nausea or vomiting and no diarrhea. Patient denies any sick contacts and no recent travel. Denies any contact with anyone with COVID-19. Review of patient's medications indicates she takes about 17 medications as listed below: # Pt. preesnted with slurred speech and unsteady gait -today NIH#0 -CT brain is unremarkable -she is with mild hypotension resolved -she is with excessive intake of multiple medication at home for pain -with possibility of medication effect can not be excluded -suggest cut down neurontine to 400 mg TID -stop Roboxin -cut down Hydrocodon to tid pRN -Brain MRI is unremarkable #Hx of seizure -for over 14 years -with possibility of seizure can not be excluded -she is complying with her trileptal at 300 mg tid ---will change to 600 mg BID -follow up with her neurologist -side effect form valproic and and other seizure medication - Keppra 1000 mg bid is added -seizure precaution -according to pt. she is probably had seizure last night -felt had Xry neck and right hip are unremarkable -exam is unchanged - # hx of cervical disc disease -s/p surgery in 09/2020 Cervical fusion - she is with bladder incontince and brisk reflexes no clear sign of mylopathy on exam -MRI cervical spine with Gd is remarkable for fusion C3-7 and degenerative disc at T1 -follow up with her orthopedic surgery # Hx of Lupus -followed by rheumatology -maintain home med. # Hx of underlying anxiety and depression. -maintain home med. DVT prophylaxis: Subcutaneous heparin CODE STATUS: Full code will sign off Subjective Date of service: 09/21/21 Principal diagnosis: seizure, excessive medications intake Interval history: pt. is upset according to her she possibly had seizure last night while she was trying to get back to bed from the commode she felt on her side and is having right hip pain . Objective - Vital Sign Vital Signs - 12hr 09/21/21 09/21/21 09/21/21 03:22 07:56 10:00 Temperature 98.2 F 98.7 F Pulse Rate 74 78 Respiratory 16 16 18 Rate Blood Pressure 107/58 106/65 Blood Pressure [Right] O2 Sat by Pulse 100 100 97 Oximetry 09/21/21 12:48 Temperature 98.0 F Pulse Rate 72 Respiratory 16 Rate Blood Pressure Blood Pressure 110/72 [Right] O2 Sat by Pulse 96 Oximetry - General Apperance Constitutional: uncomfortable - EENT EENT: PERRL, mucous membranes moist - Respiratory Respiratory: lungs clear, rhonchi - Cardiovascular Cardiovascular: regular rate, normal S1, normal S2 Extremities: no peripheral edema bilat, no clubbing, cyanosis - Gastrointestinal Gastrointestinal: normoactive bowel sounds - Integumentary Integumentary: normal - Neurologic Cranial nerve examination: PERRL, EOMI, intact Speech examination: intact Detailed motor examination: grossly full strength in, other (slight tender right hip no limited movment ,reflexes slightly on brisk side, no clonus no preston sign ) - Laboratory Findings CBC and BMP: 09/19/21 20:21 09/20/21 17:17 Abnormal Lab Findings: Abnormal Labs 09/19/21 09/19/21 09/19/21 20:21 20:21 20:21 MCH 26 L RDW 17.0 H PT 15.1 H APTT 41.2 H Sodium Potassium Chloride Carbon Dioxide 20 L Albumin 5.1 H Ur Specific [place] Urine WBC (Auto) 09/20/21 09/20/21 09/20/21 05:55 09:26 17:17 MCH RDW PT APTT Sodium 146 H D Potassium 3.5 L Chloride 110.6 H Carbon Dioxide Albumin Ur Specific [place] 1.053 H Urine WBC (Auto) 10.0 H
== END 2021-09-21 17:33 | disposition home or self-care (01) ==
LOC: ED 14:18 → 4A 23:22
PROVIDERS: ADMIT Internal Medicine Geriatric Medicine; ATTEND Student in an Organized Health Care Education/Training Program
DX: R47.1 Dysarthria and anarthria (principal); R27.0 Ataxia, unspecified; G40.909 Epilepsy, unspecified, not intractable, without status epilepticus; M32.9 Systemic lupus erythematosus, unspecified; M54.12 Radiculopathy, cervical region; G47.00 Insomnia, unspecified; F41.9 Anxiety disorder, unspecified; F32.9 Major depressive disorder, single episode, unspecified; Z79.899 Other long term (current) drug therapy; Z98.890 Other specified postprocedural states; Z90.49 Acquired absence of other specified parts of digestive tract; Z98.51 Tubal ligation status; Z79.82 Long term (current) use of aspirin
CPT/HCPCS: 36415; 70360; 70450; 70551; 71045; 72156; 73501; 80048; 80053; 80307; 81001; 84484; 85025; 85610; 85730; 87086; 87641; 93005; 93010; 93880; 96372; 96374; 96375; 96376; 97116; 97163; 99285; A9575; C8929; G0378; J0515; J1200; J1644; J2060; J2270; J7512; 80320; 93306; G0480

== ENCOUNTER 2021-12-15 00:15 | Emergency (ER) | payer OTHER ==
[2021-12-15 01:38] LABS: Hematocrit 33.1 % (30.3-42.9); Hemoglobin 10.5 gm/dl (10.1-14.3); Mean Corpuscular HGB Conc 32 % (30-34); Mean Corpuscular Volume 83 fl (79-97); Platelet Count 264 K/mm3 (140-440); Red Blood Count 3.99 M/mm3 (3.65-5.03); Red Cell Distribution Width 16.6 % (13.2-15.2)
[2021-12-15 02:02] LABS: Alanine Aminotransferase 13 units/L (7-56); Albumin 4.6 g/dL (3.9-5); Blood Urea Nitrogen 10 mg/dL (7-17); Calcium 9.5 mg/dL (8.4-10.2); Hemolysis Index 7
[2021-12-15 02:09] LABS: BUN/Creatinine Ratio 14
[2021-12-15] MEDS ORDERED: MORPHINE 4 MG/1 ML INJ IM ONE (02:12)
[2021-12-15] MEDS ORDERED: MORPHINE 2 MG/1 ML INJ IM ONE (02:13)
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
[2021-12-15] MEDS ORDERED: oxyCODONE /ACETAMINOPHEN 5-325MG TAB PO ONE (03:14)
[2021-12-15 03:55] LABS: Basophils % (Manual) 0 % (0.0-1.8); Eosinophils % (Manual) 0 % (0.0-4.3); Monocytes % (Manual) 0 % (0.0-7.3); Ovalocytes 1+; Platelet Estimate Consistent w Auto; Total Cells Counted 100
[2021-12-15 04:19] VITALS: BP 131/78
--- NOTE | 2021-12-18 13:21 | Electrocardiograph Report ---
[facility] Test Date: 2021-12-16 Test Time: 02:05:53 Pat Name: JOSE TRAN Department: Room: Gender: F [employer] Site Monitor: PAIGE : 1975 Requested By: CHARI MORLEY Order Number: [id number] Reading MD: Pino Vanegas Measurements Intervals [place] Rate: 96 P: 63 SD: 218 QRS: 38 QRSD: 89 T: 51 QT: 355 QTc: 448 Interpretive Statements Incomplete analysis due to missing data in precordial lead(s) Sinus rhythm Prolonged SD interval Compared to ECG 09/19/2021 15:29:45 No significant change Electronically Signed On 12-18-2021 13:20:34 EDT by Pino Vanegas
== END 2021-12-15 05:48 | disposition home or self-care (01) ==
LOC: ED 00:15
DX: G40.909 Epilepsy, unspecified, not intractable, without status epilepticus (principal); T24.109A Burn of first degree of unspecified site of unspecified lower limb, except ankle and foot, initial encounter; Z91.041 Radiographic dye allergy status; Z88.2 Allergy status to sulfonamides; Z88.5 Allergy status to narcotic agent
CPT/HCPCS: 36415; 70450; 80053; 85007; 85025; 93005; 96372; 99284; J2270

== ENCOUNTER 2022-01-26 02:05 | Emergency (ER) | payer OTHER ==
[2022-01-26] MEDS ORDERED: clonazePAM 0.5 MG TAB PO ONE (03:12)
[2022-01-26] MEDS ORDERED: diphenhydrAMINE 25 MG CAP PO ONE (03:12)
[2022-01-26] MEDS ORDERED: METOCLOPRAMIDE 10 MG TAB PO ONE (03:12)
[2022-01-26] MEDS ORDERED: levETIRAcetam 500 MG TAB PO ONE (03:12)
--- NOTE | 2022-01-26 03:14 | Emergency Department Report ---
ED General Adult HPI - General Chief complaint: Head Injury Stated complaint: HEAD PAIN Time Seen by Provider: 01/26/22 03:11 Source: patient, EMS ( EMS documentation not available at time of chart dictation ), RN notes reviewed, old records reviewed Mode of arrival: Stretcher Limitations: No Limitations - History of Present Illness Initial comments: The patient was evaluated in the emergency department for symptoms described in the history of present illness. He/she was evaluated in the context of the global COVID-19 pandemic, which necessitated consideration that the patient might be at risk for infection with the virus that causes COVID-19. I nstitutional protocols and algorithms that pertain to the evaluation of patients at risk for COVID-19 are in a state of rapid change based on information released by regulatory bodies including the CDC and federal and state organizations. These policies and algorithms were followed during the patient's care in the emergency department. Please note that these policies, procedures and recommendations changed on a rapid basis. During the entire history and physical examination, I am chaperoned by nurse Peter Cates This is a 46-year-old female. Past medical history is complex, including depression, insomnia, lupus, chronic pain, anemia, anxiety, and insomnia. This patient also has a history of drug overdose, and cannabis use disorder. The patient presents to the emergency room With a complaint of a preceding convulsive episode, and having hit her head. The patient was reportedly seen at [facility] earlier on today, but left that hospital because she was reportedly dissatisfied with their care. Patient endorses that she is not homicidal or suicidal. The patient makes no complaint of extremity weakness or numbness. Patient has been admitted to this hospital in the past with convulsive symptoms. In the past, has been seen by neurology, who have recommended Keppra, Tril eptal, Klonopin, and Neurontin. The patient reports that she typically follows at [facility]. There is no complaint of hematemesis of bright red blood per rectum -: Sudden Location: head Severity scale (0 -10): 10 Consistency: intermittent - Related Data Home Medications Medication Instructions Recorded Confirmed Last Taken Mirtazapine 7.5 mg PO QHS 03/14/17 12/16/21 09/18/21 21:00 Venlafaxine HCl [Effexor Xr] 150 mg PO QDAY 03/14/17 12/16/21 09/19/21 Albuterol Sulfate [Proventil Hfa] 2 puff IH TID 09/20/21 12/16/21 09/19/21 Cholecalciferol Vit D3 [Vitamin D3 1,000 unit PO QDAY 09/20/21 12/16/21 09/19/21 1,000 UNIT TAB] Dicyclomine [Bentyl] 10 mg PO TID 09/20/21 12/16/21 Unknown Folic Acid [Folvite] 2 mg PO BID 09/20/21 12/16/21 09/19/21 09:00 Iron Fum,Ps/Folic/Bcomp,C No.9 1 each PO QDAY 09/20/21 12/16/21 09/19/21 [Integra Plus Capsule] Methotrexate Sodium [metHOTREXate] 15 mg IM QWEEK 09/20/21 12/16/21 Unknown Omeprazole 40 mg PO QDAY 09/20/21 12/16/21 09/19/21 Ondansetron [Zofran ODT TAB] 8 mg PO Q8HR 09/20/21 12/16/21 09/19/21 predniSONE 10 mg PO QDAY 09/20/21 12/16/21 09/19/21 Previous Rx's Medication Instructions Recorded Last Taken Type AtorvaSTATin [Lipitor] 40 mg PO QHS 30 Days #30 tablet 09/20/21 Unknown Rx Gabapentin 400 mg PO TID 30 Days #90 capsule 09/20/21 Unknown Rx Bacitracin/Pramoxine/Aloe Vera 1 applicatio TP TID #50 g 12/15/21 Unknown Rx [Bacitraycin Plus Ointment] Silver Sulfadiazine [Silvadene] 400 gm TP Q6H #50 12/15/21 Unknown Rx clonazePAM [KlonoPIN] 0.5 mg PO BID #12 tab 12/15/21 Unknown Rx levETIRAcetam [Keppra TAB] 750 mg PO BID #60 tab 12/15/21 Unknown Rx Butalb/Acetamin/Caff 50-325-40 2 tab PO Q8HR PRN #20 tablet 12/16/21 Unknown Rx [Fioricet 50-325-40] OXcarbazepine [Trileptal] 600 mg PO BID 30 Days #120 tablet 01/26/22 Unknown Rx Potassium Chloride [K-Dur] 20 meq PO BID #60 tab 01/26/22 Unknown Rx levETIRAcetam [Keppra TAB] 1,000 mg PO BID 30 Days #120 tablet 01/26/22 Unknown Rx Allergies Allergy/AdvReac Type Severity Reaction Status Date / Time Iodinated Contrast Media Allergy Anaphylaxis Verified 09/20/21 08:38 [Iodinated Contrast Media - IV Dye] NSAIDS (Non-Steroidal Allergy Unknown Verified 09/20/21 08:38 Anti-Inflamma Sulfa (Sulfonamide Allergy Hives Verified 09/20/21 08:38 Antibiotics) hydroxychloroquine sulfate AdvReac TEMP. Verified 09/20/21 08:38 [From Plaquenil] BLINDNESS tramadol AdvReac Unknown Verified 12/15/21 00:28 ED Review of Systems ROS: Stated complaint: HEAD PAIN Other details as noted in HPI Constitutional: denies: fever Eyes: denies: vision change ENT: denies: epistaxis Respiratory: denies: cough Cardiovascular: denies: chest pain Gastrointestinal: as per HPI (Abdominal cramping and diarrhea) Musculoskeletal: myalgia Neurological: headache Psychiatric: denies: homicidal thoughts, suicidal thoughts ED Past Medical Hx - Past Medical History Previous Medical History?: Yes Hx Congestive Heart Failure: No Hx Diabetes: No Hx Renal Disease: Yes Hx Arthritis: Yes Hx Seizures: Yes Hx Psychiatric Treatment: Yes (DEPRESSION/INSOMNIA) Hx Asthma: No Hx COPD: No Hx HIV: No Additional medical history: LUPUS. LUMBAR HERNIATION. 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 ANEMIA. INSOMNIA, ANXIETY - Surgical History Past Surgical History?: Yes Hx Cholecystectomy: Yes Additional Surgical History: TUBAL LIGATION. LUNG BIOPSY. August 2020 anterior cervical fusion - Social History Smoking Status: Never Smoker Substance Use Type: None - Medications Home Medications: Home Medications Medication Instructions Recorded Confirmed Last Taken Type Mirtazapine 7.5 mg PO QHS 03/14/17 12/16/21 09/18/21 21:00 History Venlafaxine HCl [Effexor Xr] 150 mg PO QDAY 03/14/17 12/16/21 09/19/21 History Albuterol Sulfate [Proventil Hfa] 2 puff IH TID 09/20/21 12/16/21 09/19/21 History AtorvaSTATin [Lipitor] 40 mg PO QHS 30 Days #30 tablet 09/20/21 12/16/21 Unknown Rx Cholecalciferol Vit D3 [Vitamin D3 1,000 unit PO QDAY 09/20/21 12/16/21 09/19/21 History 1,000 UNIT TAB] Dicyclomine [Bentyl] 10 mg PO TID 09/20/21 12/16/21 Unknown History Folic Acid [Folvite] 2 mg PO BID 09/20/21 12/16/21 09/19/21 09:00 History Gabapentin 400 mg PO TID 30 Days #90 capsule 09/20/21 12/16/21 Unknown Rx Iron Fum,Ps/Folic/Bcomp,C No.9 1 each PO QDAY 09/20/21 12/16/21 09/19/21 History [Integra Plus Capsule] Methotrexate Sodium [metHOTREXate] 15 mg IM QWEEK 09/20/21 12/16/21 Unknown History Omeprazole 40 mg PO QDAY 09/20/21 12/16/21 09/19/21 History Ondansetron [Zofran ODT TAB] 8 mg PO Q8HR 09/20/21 12/16/21 09/19/21 History predniSONE 10 mg PO QDAY 09/20/21 12/16/21 09/19/21 History Bacitracin/Pramoxine/Aloe Vera 1 applicatio TP TID #50 g 12/15/21 12/16/21 Unknown Rx [Bacitraycin Plus Ointment] Silver Sulfadiazine [Silvadene] 400 gm TP Q6H #50 12/15/21 12/16/21 Unknown Rx clonazePAM [KlonoPIN] 0.5 mg PO BID #12 tab 12/15/21 12/16/21 Unknown Rx levETIRAcetam [Keppra TAB] 750 mg PO BID #60 tab 12/15/21 12/16/21 Unknown Rx Butalb/Acetamin/Caff 50-325-40 2 tab PO Q8HR PRN #20 tablet 12/16/21 Unknown Rx [Fioricet 50-325-40] OXcarbazepine [Trileptal] 600 mg PO BID 30 Days #120 tablet 01/26/22 Unknown Rx Potassium Chloride [K-Dur] 20 meq PO BID #60 tab 01/26/22 Unknown Rx levETIRAcetam [Keppra TAB] 1,000 mg PO BID 30 Days #120 tablet 01/26/22 Unknown Rx ED Physical Exam - General Limitations: No Limitations General appearance: alert, in no apparent distress - Head Head exam: Present: atraumatic, normocephalic - Eye Eye exam: Present: normal appearance, EOMI. Absent: nystagmus - ENT ENT exam: Present: normal exam, normal orophraynx, mucous membranes moist, normal external ear exam - Neck Neck exam: Present: normal inspection, full ROM. Absent: tenderness, meningismus - Respiratory Respiratory exam: Present: normal lung sounds bilaterally. Absent: respiratory distress, wheezes, rales, rhonchi, stridor, decreased breath sounds - Cardiovascular Cardiovascular Exam: Present: regular rate, normal rhythm, normal heart sounds. Absent: bradycardia, tachycardia, irregular rhythm, systolic murmur, diastolic murmur, rubs, gallop - GI/Abdominal GI/Abdominal exam: Present: soft. Absent: distended, tenderness, guarding, rebound, rigid, pulsatile mass - Extremities Exam Extremities exam: Present: normal inspection, full ROM, other (2+ pulses noted in the bilateral upper extremities. There is no long bony tenderness. The muscular compartments are soft. The pelvis is stable). Absent: pedal edema, calf tenderness - Back Exam Back exam: Present: normal inspection. Absent: tenderness, CVA tenderness (R), CVA tenderness (L), paraspinal tenderness, vertebral tenderness - Neurological Exam Neurological exam: Present: alert, other (There is no facial droop. The tongue is midline. EOMI. 5/5 strength in 4 extremities) - Psychiatric Psychiatric exam: Absent: homicidal ideation, suicidal ideation - Skin Skin exam: Present: warm, dry, intact, normal color. Absent: rash ED Course Vital Signs 01/26/22 01/26/22 02:05 05:29 Temperature 98.9 F 98.5 F Pulse Rate 101 H 87 Respiratory 16 Rate Blood Pressure 121/72 Blood Pressure 133/74 [Left] O2 Sat by Pulse 100 Oximetry - Reevaluation(s) Reevaluation #1: 01/26/22 05:17 Differential diagnosis, including but not limited to: Convulsion, conversion disorder, closed head injury, concussion, history of seizure Assessment and plan: 46-year-old female, who is clinically sober, with a GCS of 15, who is awake, alert, oriented, and of sound mind, and exhibits decision- making capacity, with a primary complaint of convulsion, and closed head injury. Patient has a complex past medical history, including drug overdose. Patient was professionally and calmly informed that we will be very happy to treat her and evaluate her for her convulsion and closed head injury, but that we would not administer any narcotic medications. Patient given oral medications, and did not have any vomiting. While in the emergency room, patient endorsed a desire to leave, stating that she was not satisfied with the care over here. Multiple efforts were made by myself or nursing team to assure patient's concerns, and that we were addressing her complaints of convulsion and closed head injury. While in the emergency room, the patient had a shaking episode, with immediate moravian of normal mental status, very suggestive of conversion disorder. Anemia appears to be chronic when compared to prior laboratory studies, and she does not meet criteria for 1013 hold or involuntary confinement. A noncontrast CT scan of the brain is negative for acute findings, her EKG is essentially unremarkable, and she was found to have very mild hypokalemia. Patient and family ultimately left from the emergency room prior to receiving her discharge paperwork. ED Medical Decision Making - Lab Data Result diagrams: 01/26/22 03:49 01/26/22 03:49 Vital Signs 01/26/22 02:05 Temperature 98.9 F Pulse Rate 101 H Respiratory 16 Rate Blood Pressure 121/72 O2 Sat by Pulse 100 Oximetry Lab Results 01/26/22 01/26/22 Range/Units 03:49 03:49 WBC 12.6 H (4.5-11.0) K/mm3 RBC 3.75 (3.65-5.03) M/mm3 Hgb 9.0 L (10.1-14.3) gm/dl Hct 28.9 L (30.3-42.9) % MCV 77 L (79-97) fl MCH 24 L (28-32) pg MCHC 31 (30-34) % RDW 18.6 H (13.2-15.2) % Plt Count 362 (140-440) K/mm3 Sodium 139 (137-145) mmol/L Potassium 3.0 L (3.6-5.0) mmol/L Chloride 102.8 (98-107) mmol/L Carbon Dioxide 19 L (22-30) mmol/L Anion Gap 20 mmol/L BUN 11 (7-17) mg/dL Creatinine 0.8 (0.6-1.2) mg/dL Estimated GFR > 60 ml/min BUN/Creatinine Ratio 14 % Glucose 112 H (65-100) mg/dL Calcium 9.2 (8.4-10.2) mg/dL Magnesium 2.20 (1.7-2.3) mg/dL - EKG Data -: EKG Interpreted by Id EKG shows normal: sinus rhythm Rate: normal - EKG Data 01/26/22 05:15 The EKG is interpreted at 3: 18 This is a sinus rhythm, with a rate of 96 bpm. There is a normal axis. There is a normal P wave axis. There is high left ventricular voltage, the QTC is 4 6 5 ms. The AL interval is 2 0 0 ms. This is not a STEMI - Radiology Data Radiology results: pending, report reviewed, image reviewed CT HEAD WITHOUT CONTRAST INDICATION / CLINICAL INFORMATION: closed head injury. TECHNIQUE: All CT scans at this location are performed using CT dose reduction for ALARA by means of automated exposure control. COMPARISON: Head CT 12/16/2021 FINDINGS: HEMORRHAGE: None. EXTRA-AXIAL SPACES: Normal in size and morphology for the patient's age. VENTRICULAR SYSTEM: Normal in size and morphology for the patient's age. CEREBRAL PARENCHYMA: No significant abnormality. No acute territorial infarct. MIDLINE SHIFT OR HERNIATION: None. CEREBELLUM / BRAINSTEM: No significant abnormality. ORBITS: Normal as visualized. SOFT TISSUES of HEAD: No significant abnormality. CALVARIUM: No significant abnormality. PARANASAL SINUSES / MASTOID AIR CELLS: Normal as visualized. ADDITIONAL FINDINGS: None. IMPRESSION: 1. No acute intracranial abnormality. Signer Name: Booker Martinez MD Signed: 01/26/2022 2:58 AM Workstation Name: [id number] Critical care attestation.: If time is entered above; I have spent that time in minutes in the direct care of this critically ill patient, excluding procedure time. ED Disposition Clinical Impression: Closed head injury, Convulsion, Hypokalemia Disposition: HOME / SELF CARE / HOMELESS Is pt being admited?: No Does the pt Need Aspirin: No Condition: Good Additional Instructions: Do not drive or operate motor vehicles for the next 6 months. Avoid consumption of alcohol, tobacco, smoke products and opioids. Recommend cessation of marijuana and cannabis containing products. Recommend follow-up with your outpatient neurologist within the next week. Participate in physical activity as tolerated. Consume foods that are high in potassium, such as banana, avocado, and potato. Please return to the emergency room right away with new pain, worsened pain, migration of pain, projectile vomiting, change in mental status, confusion, inability tolerate liquid feeds, new, worsened or different symptoms not present on the initial emergency room evaluation Prescriptions: Potassium Chloride [K-Dur] 20 meq PO BID #60 tab levETIRAcetam [Keppra TAB] 1,000 mg PO BID 30 Days #120 tablet OXcarbazepine [Trileptal] 600 mg PO BID 30 Days #120 tablet Referrals: SARAH GUTIERREZ [Other] - 3-5 Days DEXTER ROACH MD [Referring] - 3-5 Days
[2022-01-26] MEDS ORDERED: LIDOCAINE (4%) 40 MG/ML TOPICAL SOLN 50 ML BOTTLE TP ONE (03:17)
[2022-01-26] MEDS ORDERED: ONDANSETRON 4 MG ODT TAB PO STA (03:43)
[2022-01-26] MEDS ORDERED: ACETAMINOPHEN 325 MG TAB PO ONE (03:54)
[2022-01-26 04:02] LABS: Hematocrit 28.9 % (30.3-42.9); Mean Corpuscular HGB Conc 31 % (30-34); Mean Corpuscular Volume 77 fl (79-97); Platelet Count 362 K/mm3 (140-440); Red Blood Count 3.75 M/mm3 (3.65-5.03); Red Cell Distribution Width 18.6 % (13.2-15.2)
--- NOTE | 2022-01-26 04:03 | Cat Scan Report ---
CT HEAD WITHOUT CONTRAST INDICATION / CLINICAL INFORMATION: closed head injury. TECHNIQUE: All CT scans at this location are performed using CT dose reduction for ALARA by means of automated e xposure control. COMPARISON: Head CT 12/16/2021 FINDINGS: HEMORRHAGE: None. EXTRA-AXIAL SPACES: Normal in size and morphology for the patient's age. VENTRICULAR SYSTEM: Normal in size and morphology for the patient's age. CEREBRAL PARENCHYMA: No significant abnormality. No acute territorial infarct. MIDLINE SHIFT OR HERNIATION: None. CEREBELLUM / BRAINSTEM: No significant abnormality. ORBITS: Normal as visualized. SOFT TISSUES of HEAD: No significant abnormality. CALVARIUM: No significant abnormality. PARANASAL SINUSES / MASTOID AIR CELLS: Normal as visualized. ADDITIONAL FINDINGS: None. IMPRESSION: 1. No acute intracranial abnormality. Signer Name: Booker Martinez MD Signed: 01/26/2022 3:58 AM Workstation Name: [id number]
[2022-01-26 04:12] LABS: BUN/Creatinine Ratio 14; Blood Urea Nitrogen 11 mg/dL (7-17); Calcium 9.2 mg/dL (8.4-10.2); Hemolysis Index 6
[2022-01-26] MEDS ORDERED: OXcarbazepine 300 MG TAB PO ONE (04:12)
[2022-01-26] MEDS ORDERED: POTASSIUM CHLORIDE ER 20 MEQ TAB PO ONE (04:17)
[2022-01-26 05:30] VITALS: BP 133/74
--- NOTE | 2022-01-26 13:34 | Electrocardiograph Report ---
[facility] Test Date: 2022-01-26 Test Time: 03:18:55 Pat Name: JOSE TRAN Department: Room: Gender: F [place]: NURSE : 1975 Requested By: CHARI MENDOZA Order Number: [id number] Reading MD: Pino Vanegas Measurements Intervals [place] Rate: 96 P: 54 [place]: 200 QRS: 30 QRSD: 81 T: 27 QT: 372 QTc: 469 Interpretive Statements Sinus rhythm Borderline prolonged [place] interval Compared to ECG 12/16/2021 02:05:53 No significant changes Electronically Signed On 01-26-2022 13:34:03 EDT by Pino Vanegas
== END 2022-01-26 05:31 | disposition home or self-care (01) ==
LOC: ED 02:05
DX: S09.90XA Unspecified injury of head, initial encounter (principal); R56.9 Unspecified convulsions; E87.6 Hypokalemia; Z88.2 Allergy status to sulfonamides; Z88.6 Allergy status to analgesic agent; Z91.041 Radiographic dye allergy status; Z88.8 Allergy status to other drugs, medicaments and biological substances; X58.XXXA Exposure to other specified factors, initial encounter; Y92.89 Other specified places as the place of occurrence of the external cause; Y93.89 Activity, other specified; Y99.8 Other external cause status
CPT/HCPCS: 36415; 70450; 80048; 83735; 85027; 93005; 99284; J3490; Q0162

== ENCOUNTER 2022-04-18 01:54 | Observation (INO) | payer OTHER ==
[2022-04-18] MEDS ORDERED: SODIUM CHLORIDE 0.9% 1000 ML 1,000 ML IV ONE ×2 (02:17→02:18)
--- NOTE | 2022-04-18 02:57 | XRay Report ---
Chest single view INDICATION: Seizure dyspnea IMPRESSION: Cardiomegaly. The lungs are grossly clear. Signer Name: Yakov Curry MD Signed: 04/18/2022 2:53 AM Workstation Name: [id number] [email or web address]
--- NOTE | 2022-04-18 03:00 | Cat Scan Report ---
CT head without contrast INDICATION : Seizures TECHNIQUE: Axial imaging performed from the skull apex through the skull base without the use of con trast. All CT examinations performed at this facility utilize dose modulation, iterative reconstruct ion or weight-based dosing, when appropriate, to reduce radiation dose to as low as reasonably achiev able. COMPARISON: 01/26/2022 FINDINGS: No acute intracranial hemorrhage or parenchymal abnormality. Ventricles are normal in si ze and appear symmetric. Soft tissues including the orbits appear normal. No acute osseous abnorm ality. Sinuses and mastoid air cells are clear. IMPRESSION: No acute abnormality. No change from 01/26/2022. Signer Name: Yakov Curry MD Signed: 04/18/2022 2:56 AM Workstation Name: [id number]
[2022-04-18 03:38] LABS: Hematocrit 30.3 % (30.3-42.9); Red Blood Count 4.03 M/mm3 (3.65-5.03)
[2022-04-18 03:39] LABS: Mean Corpuscular HGB Conc 30 % (30-34); Mean Corpuscular Volume 75 fl (79-97); Platelet Count 306 K/mm3 (140-440); Red Cell Distribution Width 21.4 % (13.2-15.2)
[2022-04-18 04:25] LABS: Alanine Aminotransferase 14 units/L (7-56); Albumin 4.7 g/dL (3.9-5); BUN/Creatinine Ratio 14; Blood Urea Nitrogen 11 mg/dL (7-17); Calcium 9.5 mg/dL (8.4-10.2); Hemolysis Index 9
[2022-04-18] MEDS ORDERED: levETIRAcetam 500 MG TAB PO ONE ×2 (05:54→05:57)
--- NOTE | 2022-04-18 05:56 | Emergency Department Report ---
<LOREE CASTRO - Last Filed: 04/18/22 06:40> ED General Adult HPI - General Chief complaint: Weakness Stated complaint: WEAKNESS PUI?: No Time Seen by Provider: 04/18/22 02:09 Source: patient, EMS Mode of arrival: Ambulatory Limitations: No Limitations - History of Present Illness Initial comments: This is a 46-year-old female with medical history of seizure, hyperlipidemia, lupus; came in today with concerns of possible seizure-like activity which per nurse, was witness by family member. At the time my evaluation patient appears to be confused and patient repeatedly says that I am postictal. Patient not sure what year it is (says 1999, 2019, etc) or which town she is in. Patient knows her name. Patient is unable to provide any review of systems due to confusion. Called house number ([phone]) and also son's number ([phone]); but no one picking supervisor to provide information. - Related Data Home Medications Medication Instructions Recorded Confirmed Last Taken Mirtazapine 7.5 mg PO QHS 03/14/17 12/16/21 09/18/21 21:00 Venlafaxine HCl [Effexor Xr] 150 mg PO QDAY 03/14/17 12/16/21 09/19/21 Albuterol Sulfate [Proventil Hfa] 2 puff IH TID 09/20/21 12/16/21 09/19/21 Cholecalciferol Vit D3 [Vitamin D3 1,000 unit PO QDAY 09/20/21 12/16/21 09/19/21 1,000 UNIT TAB] Dicyclomine [Bentyl] 10 mg PO TID 09/20/21 12/16/21 Unknown Folic Acid [Folvite] 2 mg PO BID 09/20/21 12/16/21 09/19/21 09:00 Iron Fum,Ps/Folic/Bcomp,C No.9 1 each PO QDAY 09/20/21 12/16/21 09/19/21 [Integra Plus Capsule] Methotrexate Sodium [metHOTREXate] 15 mg IM QWEEK 09/20/21 12/16/21 Unknown Omeprazole 40 mg PO QDAY 09/20/21 12/16/21 09/19/21 Ondansetron [Zofran ODT TAB] 8 mg PO Q8HR 09/20/21 12/16/21 09/19/21 predniSONE 10 mg PO QDAY 09/20/21 12/16/21 09/19/21 Previous Rx's Medication Instructions Recorded Last Taken Type AtorvaSTATin [Lipitor] 40 mg PO QHS 30 Days #30 tablet 09/20/21 Unknown Rx Gabapentin 400 mg PO TID 30 Days #90 capsule 09/20/21 Unknown Rx Bacitracin/Pramoxine/Aloe Vera 1 applicatio TP TID #50 g 12/15/21 Unknown Rx [Bacitraycin Plus Ointment] Silver Sulfadiazine [Silvadene] 400 gm TP Q6H #50 12/15/21 Unknown Rx clonazePAM [KlonoPIN] 0.5 mg PO BID #12 tab 12/15/21 Unknown Rx levETIRAcetam [Keppra TAB] 750 mg PO BID #60 tab 12/15/21 Unknown Rx Butalb/Acetamin/Caff 50-325-40 2 tab PO Q8HR PRN #20 tablet 12/16/21 Unknown Rx [Fioricet 50-325-40] OXcarbazepine [Trileptal] 600 mg PO BID 30 Days #120 tablet 01/26/22 Unknown Rx Potassium Chloride [K-Dur] 20 meq PO BID #60 tab 01/26/22 Unknown Rx levETIRAcetam [Keppra TAB] 1,000 mg PO BID 30 Days #120 tablet 01/26/22 Unknown Rx Allergies Allergy/AdvReac Type Severity Reaction Status Date / Time Iodinated Contrast Media Allergy Anaphylaxis Verified 09/20/21 08:38 [Iodinated Contrast Media - IV Dye] NSAIDS (Non-Steroidal Allergy Unknown Verified 09/20/21 08:38 Anti-Inflamma Sulfa (Sulfonamide Allergy Hives Verified 09/20/21 08:38 Antibiotics) hydroxychloroquine sulfate AdvReac TEMP. Verified 09/20/21 08:38 [From Plaquenil] BLINDNESS tramadol AdvReac Unknown Verified 12/15/21 00:28 ED Review of Systems Comment: Unobtainable due to pts medical conditions ED Past Medical Hx - Past Medical History Previous Medical History?: Yes Hx Congestive Heart Failure: No Hx Diabetes: No Hx Renal Disease: Yes Hx Arthritis: Yes Hx Seizures: Yes Hx Psychiatric Treatment: Yes (DEPRESSION/INSOMNIA) Hx Asthma: No Hx COPD: No Hx HIV: No Additional medical history: LUPUS. LUMBAR HERNIATION. 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 ANEMIA. INSOMNIA, ANXIETY - Surgical History Past Surgical History?: Yes Hx Cholecystectomy: Yes Additional Surgical History: TUBAL LIGATION. LUNG BIOPSY. August 2020 ante rior cervical fusion - Social History Smoking Status: Never Smoker - Medications Home Medications: Home Medications Medication Instructions Recorded Confirmed Last Taken Type Mirtazapine 7.5 mg PO QHS 03/14/17 12/16/21 09/18/21 21:00 History Venlafaxine HCl [Effexor Xr] 150 mg PO QDAY 03/14/17 12/16/21 09/19/21 History Albuterol Sulfate [Proventil Hfa] 2 puff IH TID 09/20/21 12/16/21 09/19/21 History AtorvaSTATin [Lipitor] 40 mg PO QHS 30 Days #30 tablet 09/20/21 12/16/21 Unknown Rx Cholecalciferol Vit D3 [Vitamin D3 1,000 unit PO QDAY 09/20/21 12/16/21 09/19/21 History 1,000 UNIT TAB] Dicyclomine [Bentyl] 10 mg PO TID 09/20/21 12/16/21 Unknown History Folic Acid [Folvite] 2 mg PO BID 09/20/21 12/16/21 09/19/21 09:00 History Gabapentin 400 mg PO TID 30 Days #90 capsule 09/20/21 12/16/21 Unknown Rx Iron Fum,Ps/Folic/Bcomp,C No.9 1 each PO QDAY 09/20/21 12/16/21 09/19/21 History [Integra Plus Capsule] Methotrexate Sodium [metHOTREXate] 15 mg IM QWEEK 09/20/21 12/16/21 Unknown History Omeprazole 40 mg PO QDAY 09/20/21 12/16/21 09/19/21 History Ondansetron [Zofran ODT TAB] 8 mg PO Q8HR 09/20/21 12/16/21 09/19/21 History predniSONE 10 mg PO QDAY 09/20/21 12/16/21 09/19/21 History Bacitracin/Pramoxine/Aloe Vera 1 applicatio TP TID #50 g 12/15/21 12/16/21 Un known Rx [Bacitraycin Plus Ointment] Silver Sulfadiazine [Silvadene] 400 gm TP Q6H #50 12/15/21 12/16/21 Unknown Rx clonazePAM [KlonoPIN] 0.5 mg PO BID #12 tab 12/15/21 12/16/21 Unknown Rx levETIRAcetam [Keppra TAB] 750 mg PO BID #60 tab 12/15/21 12/16/21 Unknown Rx Butalb/Acetamin/Caff 50-325-40 2 tab PO Q8HR PRN #20 tablet 12/16/21 Unknown Rx [Fioricet 50-325-40] OXcarbazepine [Trileptal] 600 mg PO BID 30 Days #120 tablet 01/26/22 Unknown Rx Potassium Chloride [K-Dur] 20 meq PO BID #60 tab 01/26/22 Unknown Rx levETIRAcetam [Keppra TAB] 1,000 mg PO BID 30 Days #120 tablet 01/26/22 Unknown Rx ED Physical Exam - General Limitations: No Limitations General appearance: alert - Head Head exam: Present: atraumatic, normocephalic - Eye Eye exam: Present: normal appearance, PERRL Pupils: Present: normal accommodation - ENT ENT exam: Present: normal exam - Neck Neck exam: Present: normal inspection, full ROM - Respiratory Respiratory exam: Present: normal lung sounds bilaterally - Cardiovascular Cardiovascular Exam: Present: regular rate, normal rhythm, normal heart sounds - GI/Abdominal GI/Abdominal exam: Present: soft - Extremities Exam Extremities exam: Present: normal inspection - Back Exam Back exam: Present: normal inspection, full ROM - Neurological Exam Neurological exam: Present: altered, CN II-XII intact - Psychiatric Psychiatric exam: Present: other (Pleasantly altered) - Skin Skin exam: Present: normal color ED Course - Reevaluation(s) Reevaluation #1: 04/18/22 06:02 No family members at bedside. RN unable to obtain IV access after multiple attempts (~8 times). I am not able to obtain EJ and also central line kinked. Will hold access attempt as patient is becoming more alert and oriented. Will have IV team try in the morning. Will give PO Keppra. 04/18/22 06:40 During my reevaluation, patient still confused but there is improvement. Called both home and son's phone but still no picking supervisor. Patient states you're blurry but doesn't elaborate more on that when I asked when this started. Looking at patient's discharge paper from another hospital, it listed hydroxychloroquine - couldn't see" since 2013. I will sign to my patient care to my colleague Dr. Grant. ED Medical Decision Making - Lab Data Result diagrams: 04/18/22 03:03 04/18/22 03:03 ED Disposition Clinical Impression: Polypharmacy, Lethargic, Seizure Disposition: ADMITTED INPATIENT Condition: Fair <CHARI GRANT - Last Filed: 04/18/22 10:26> ED Review of Systems ROS: Stated complaint: WEAKNESS Other details as noted in HPI ED Course Vital Signs 04/18/22 04/18/22 04/18/22 02:21 02:33 05:00 Temperature 98 F 98.0 F Pulse Rate 100 H 120 H 90 Respiratory 16 15 18 Rate Blood Pressure 141/90 Blood Pressure 130/80 159/72 [Right] O2 Sat by Pulse 99 97 97 Oximetry 04/18/22 04/18/22 04/18/22 06:04 06:14 07:53 Temperature Pulse Rate 93 H 93 H 95 H Respiratory 18 18 16 Rate Blood Pressure Blood Pressure 131/70 137/71 142/84 [Right] O2 Sat by Pulse 97 97 99 Oximetry - Reevaluation(s) Reevaluation #1: 04/18/22 08:00 IV access is established by nursing team. I am familiar with this patient. The patient is awake to name and following commands, but she is still somewhat confused. Leukocytosis is likely a stress reaction. Lactic acidosis is likely a type II lactic acidosis. 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 Nevertheless, she is confused, without meningeal signs. Admit for supportive care, and anticipation of restorationist of normal mental status. EKG ordered, additional appropriate laboratory studies added on. Hospital physician, Dr. Yumiko Tolnetino to admit ED Medical Decision Making - Lab Data Result diagrams: 04/18/22 03:03 04/18/22 03:03 Vital Signs 04/18/22 04/18/22 04/18/22 02:21 02:33 05:00 Temperature 98 F 98.0 F Pulse Rate 100 H 120 H 90 Respiratory 16 15 18 Rate Blood Pressure 141/90 Blood Pressure 130/80 159/72 [Right] O2 Sat by Pulse 99 97 97 Oximetry 04/18/22 04/18/22 04/18/22 06:04 06:14 07:53 Temperature Pulse Rate 93 H 93 H 95 H Respiratory 18 18 16 Rate Blood Pressure Blood Pressure 131/70 137/71 142/84 [Right] O2 Sat by Pulse 97 97 99 Oximetry Lab Results 04/18/22 04/18/22 04/18/22 Range/Units 03:03 03:03 03:03 WBC 14.2 H (4.5-11.0) K/mm3 RBC 4.03 (3.65-5.03) M/mm3 Hgb 9.0 L (10.1-14.3) gm/dl Hct 30.3 (30.3-42.9) % MCV 75 L (79-97) fl MCH 22 L (28-32) pg MCHC 30 (30-34) % RDW 21.4 H (13.2-15.2) % Plt Count 306 (140-440) K/mm3 Sodium 141 (137-145) mmol/L Potassium 4.4 (3.6-5.0) mmol/L Chloride 106.1 (98-107) mmol/L Carbon Dioxide 21 L (22-30) mmol/L Anion Gap 18 mmol/L BUN 11 (7-17) mg/dL Creatinine 0.8 (0.6-1.2) mg/dL Estimated GFR > 60 ml/min BUN/Creatinine Ratio 14 % Glucose 161 H (65-100) mg/dL Lactic Acid 4.30 H* (0.7-2.0) mmol/L Calcium 9.5 (8.4-10.2) mg/dL Magnesium 1.80 (1.7-2.3) mg/dL Total Bilirubin < 0.20 (0.1-1.2) mg/dL AST 16 (5-40) units/L ALT 14 (7-56) units/L Alkaline Phosphatase 91 (35-129) units/L Total Creatine Kinase 139 H (30-135) units/L Total Protein 7.7 (6.3-8.2) g/dL Albumin 4.7 (3.9-5) g/dL Albumin/Globulin Ratio 1.6 % 04/18/22 Range/Units 06:40 WBC (4.5-11.0) K/mm3 RBC (3.65-5.03) M/mm3 Hgb (10.1-14.3) gm/dl Hct (30.3-42.9) % MCV (79-97) fl MCH (28-32) pg MCHC (30-34) % RDW (13.2-15.2) % Plt Count (140-440) K/mm3 Sodium (137-145) mmol/L Potassium (3.6-5.0) mmol/L Chloride (98-107) mmol/L Carbon Dioxide (22-30) mmol/L Anion Gap mmol/L BUN (7-17) mg/dL Creatinine (0.6-1.2) mg/dL Estimated GFR ml/min BUN/Creatinine Ratio % Glucose (65-100) mg/dL Lactic Acid 2.00 (0.7-2.0) mmol/L Calcium (8.4-10.2) mg/dL Magnesium (1.7-2.3) mg/dL Total Bilirubin (0.1-1.2) mg/dL AST (5-40) units/L ALT (7-56) units/L Alkaline Phosphatase (35-129) units/L Total Creatine Kinase (30-135) units/L Total Protein (6.3-8.2) g/dL Albumin (3.9-5) g/dL Albumin/Globulin Ratio % - EKG Data -: EKG Interpreted by Or Rate: tachycardia - EKG Data 04/18/22 10:25 The EKG is interpreted at 08: 3 0 Sinus tachycardia, with a rate of 103 bpm. Normal axis, normal P wave axis, left ventricular hypertrophy, minimal motion artifact, abnormal EKG, not a STEMI - Radiology Data Radiology results: pending, report reviewed, image reviewed CT head without contrast INDICATION : Seizures TECHNIQUE: Axial imaging performed from the skull apex through the skull base without the use of contrast. All CT examinations performed at this facility utilize dose modulati on, iterative reconstruction or weight-based dosing, when appropriate, to reduce radiation dose to as low as reasonably achievable. COMPARISON: 01/26/2022 FINDINGS: No acute intracranial hemorrhage or parenchymal abnormality. Ventricles are normal in size and appear symmetric. Soft tissues including the orbits appear normal. No acute osseous abnormality. Sinuses and mastoid air cells are clear. IMPRESSION: No acute abnormality. No change from 01/26/2022. Signer Name: Yakov Curry MD Signed: 04/18/2022 1:56 A Chest single view INDICATION: Seizure dyspnea IMPRESSION: Cardiomegaly. The lungs are grossly clear. Signer Name: Yakov Curry MD Signed: 04/18/2022 1:53 AM Workstation Name: [employer] Critical care attestation.: If time is entered above; I have spent that time in minutes in the direct care of this critically ill patient, excluding procedure time. ED Disposition Is pt being admited?: Yes Does the pt Need Aspirin: No
--- NOTE | 2022-04-18 06:23 | XRay Report ---
Chest single view INDICATION: Dyspnea IMPRESSION: Cardiomegaly with worsening bilateral airspace disease which could be early interstitial edema versus significant atelectasis. No pneumothorax identified. Signer Name: Yakov Curry MD Signed: 04/18/2022 6:18 AM Workstation Name: [employer]
[2022-04-18] MEDS ORDERED: NALOXONE 0.4 MG/1 ML INJ IV PRN (08:02)
[2022-04-18 08:35] LABS: Amphetamine Screen,Urine Negative; Benzodiazepines Screen,Urine Negative; Cannabinoid Screen,Urine Negative; Cocaine Screen,Urine Negative; Methadone Screen,Urine Negative
[2022-04-18 08:45] LABS: WBC,Urine < 1.0 /HPF (0.0-6.0)
--- NOTE | 2022-04-18 08:49 | History and Physical Report ---
History of Present Illness Date of examination: 04/18/22 Date of admission: 04/18/22 Chief complaint: Seizure with Post Ictal state and Metabolic Encephalopathy History of present illness: Patient is a 46-year-old female with primary medical history of multiple repeat ed seizure disorder, hyperlipidemia, lupus, medical noncompliance, depression, insomnia, obesity, anxiety, anemia, lumbar herniation, tubal ligation and anterior cervical fusion in August 2020 who presents to the hospital following a seizure episode that was witnessed by family member. Patient was transported to the ER confused and repeatedly says that she is postictal. In the ED examination she was not sure what year it was. She was recommended for admission for further management. I could not obtain any information from her although she tries to speak but continues to repeat the same word and has prolonged thought process while trying to complete a sentence. Further information obtained by review of records. There is no documentation fever or difficulty breathing nausea vomiting. Unfortunately no family members at bedside. It appears she has been on multiple medication and review of her previous neurology evaluation here in the hospital. And also during her last hospitalization had left AMA. At this point I am unclear what medication she actually takes at home. Called house number daughter and also ([phone]) and also son's number ([phone]); I did leave a message but no one pick out hand to provide information. Imaging studies including CT of the head in the ER did not show any acute abnormality Past History Past Medical History: seizures, other (lupus, anxiety, depression). denies: COPD, diabetes, hyperlipidemia Past Surgical History: Other (anterior cervical fusion,DISPLACED C4-6., tubal ligation, lumbar herniation,) Social history: full code. denies: smoking, IV drug use Family history: no significant family history Medications and Allergies Allergies Allergy/AdvReac Type Severity Reaction Status Date / Time Iodinated Contrast Media Allergy Anaphylaxis Verified 09/20/21 08:38 [Iodinated Contrast Media - IV Dye] NSAIDS (Non-Steroidal Allergy Unknown Verified 09/20/21 08:38 Anti-Inflamma Sulfa (Sulfonamide Allergy Hives Verified 09/20/21 08:38 Antibiotics) hydroxychloroquine sulfate AdvReac TEMP. Verified 09/20/21 08:38 [From Plaquenil] BLINDNESS tramadol AdvReac Unknown Verified 12/15/21 00:28 Home Medications Medication Instructions Recorded Confirmed Last Taken Type Mirtazapine 7.5 mg PO QHS 03/14/17 12/16/21 09/18/21 21:00 History Venlafaxine HCl [Effexor Xr] 150 mg PO QDAY 03/14/17 12/16/21 09/19/21 History Albuterol Sulfate [Proventil Hfa] 2 puff IH TID 09/20/21 12/16/21 09/19/21 History AtorvaSTATin [Lipitor] 40 mg PO QHS 30 Days #30 tablet 09/20/21 12/16/21 Unknown Rx Cholecalciferol Vit D3 [Vitamin D3 1,000 unit PO QDAY 09/20/21 12/16/21 09/19/21 History 1,000 UNIT TAB] Dicyclomine [Bentyl] 10 mg PO TID 09/20/21 12/16/21 Unknown History Folic Acid [Folvite] 2 mg PO BID 09/20/21 12/16/21 09/19/21 09:00 History Gabapentin 400 mg PO TID 30 Days #90 capsule 09/20/21 12/16/21 Unknown Rx Iron Fum,Ps/Folic/Bcomp,C No.9 1 each PO QDAY 09/20/21 12/16/21 09/19/21 History [Integra Plus Capsule] Methotrexate Sodium [metHOTREXate] 15 mg IM QWEEK 09/20/21 12/16/21 Unknown History Omeprazole 40 mg PO QDAY 09/20/21 12/16/21 09/19/21 History Ondansetron [Zofran ODT TAB] 8 mg PO Q8HR 09/20/21 12/16/21 09/19/21 History predniSONE 10 mg PO QDAY 09/20/21 12/16/21 09/19/21 History Bacitracin/Pramoxine/Aloe Vera 1 applicatio TP TID #50 g 12/15/21 12/16/21 Unknown Rx [Bacitraycin Plus Ointment] Silver Sulfadiazine [Silvadene] 400 gm TP Q6H #50 12/15/21 12/16/21 Unknown Rx clonazePAM [KlonoPIN] 0.5 mg PO BID #12 tab 12/15/21 12/16/21 Unknown Rx levETIRAcetam [Keppra TAB] 750 mg PO BID #60 tab 12/15/21 12/16/21 Unknown Rx Butalb/Acetamin/Caff 50-325-40 2 tab PO Q8HR PRN #20 tablet 12/16/21 Unknown Rx [Fioricet 50-325-40] OXcarbazepine [Trileptal] 600 mg PO BID 30 Days #120 tablet 01/26/22 Unknown Rx Potassium Chloride [K-Dur] 20 meq PO BID #60 tab 01/26/22 Unknown Rx levETIRAcetam [Keppra TAB] 1,000 mg PO BID 30 Days #120 tablet 01/26/22 Unknown Rx Active Meds: Active Medications Acetaminophen (Acetaminophen 325 Mg Tab) 650 mg PO Q4H PRN PRN Reason: Pain MILD(1-3)/Fever >100.5/FRIEND Acetaminophen/Butalbital/Caffeine (Butalb/Acetaminophen/Caffeine Tab) 2 tab PO Q8HR PRN PRN Reason: Headache Albuterol (Albuterol 2.5 Mg/3 Ml Nebu) 2.5 mg IH Q3HRT PRN PRN Reason: Shortness Of Breath Atorvastatin Calcium (Atorvastatin 40 Mg Tab) 40 mg PO QHS [facility] Cholecalciferol (Cholecalciferol (Vit D3) 1000 Unit (25 Mcg) Tab) 1,000 unit PO QDAY [facility] Clonazepam (Clonazepam 0.5 Mg Tab) 0.5 mg PO BID [facility] Dicyclomine HCl (Dicyclomine 10 Mg Cap) 10 mg PO TID [facility] Famotidine (Famotidine 20 Mg/2 Ml Inj) 20 mg IV BID [facility] Folic Acid (Folic Acid 1 Mg Tab) 2 mg PO BID [facility] Gabapentin (Gabapentin 400 Mg Cap) 400 mg PO TID [facility] Heparin Sodium (Porcine) (Heparin 5,000 Unit/1 Ml Vial) 5,000 unit SUB-Q Q12HR [facility] Methotrexate (Methotrexate Sodium 125 Mg/5 Ml Syringe) 15 mg IM QWEEK [facility] Metoclopramide HCl (Metoclopramide 10 Mg/2 Ml Inj) 10 mg IV Q6H PRN PRN Reason: Nausea And Vomiting Mirtazapine (Mirtazapine 15 Mg Tab) 7.5 mg PO QHS [facility] Miscellaneous Medication (Bacitracin/Pramoxine/Aloe Vera [Bacitraycin Plus Ointment]) 1 applicatio TP TID [facility] Miscellaneous Medication (Venlafaxine Hcl [Effexor Xr]) 150 mg PO QDAY [facility] Naloxone HCl (Naloxone 0.4 Mg/1 Ml Inj) 0.1 mg IV Q2MIN PRN PRN Reason: Res Rate </= 8 or 02 SAT < 92% Ondansetron HCl (Ondansetron 4 Mg/2 Ml Inj) 4 mg IV Q8H PRN PRN Reason: Nausea And Vomiting Ondansetron HCl (Ondansetron 8 Mg Odt Tab) 8 mg PO Q8HR [facility] Oxcarbazepine (Oxcarbazepine 300 Mg Tab) 600 mg PO BID [facility] Oxycodone/Acetaminophen (Oxycodone /Acetaminophen 5-325mg Tab) 1 tab PO Q6H PRN PRN Reason: Pain, Moderate (4-6) Sodium Chloride (Sodium Chloride 0.9% 10 Ml Flush Syringe) 10 ml IV BID [facility] Sodium Chloride (Sodium Chloride 0.9% 10 Ml Flush Syringe) 10 ml IV PRN PRN PRN Reason: LINE FLUSH Review of Systems ROS unobtainable: due to mental status Exam - Physical Exam Narrative exam: VITAL SIGNS: Reviewed. GENERAL: The patient appears normally developed, lethargic vital signs as documented. HEAD: No signs of head trauma. EYES: Pupils are equal. Extraocular motions intact. EARS: Hearing grossly intact. MOUTH: Oropharynx is normal. NECK: No adenopathy, no JVD. CHEST: Chest with clear breath sounds bilaterally. No wheezes, rales, or rhonchi. CARDIAC: Regular rate and rhythm. S1 and S2, without murmurs, gallops, or rubs. VASCULAR: No Edema. Peripheral pulses normal and equal in all extremities. ABDOMEN: Soft, non tender and non distended. No rebound or guarding, and no masses palpated. Bowel Sounds normal. MUSCULOSKELETAL: Good range of motion of all major joints. Extremities without clubbing, cyanosis or edema. NEUROLOGIC EXAM: Alert and oriented to person place but not to time otherwise lethargic no focal sensory or strength deficits. Speech slurred . Follows some commands. PSYCHIATRIC: Unable to clearly assess as patient was appearing lethargic and stuporous. SKIN: detail exam as documented in skin assessment - Constitutional Vitals: Temp Pulse Resp BP Pulse Ox 98.0 F 95 H 16 142/84 99 08/31/22 02:33 04/18/22 07:53 04/18/22 07:53 04/18/22 07:53 04/18/22 07:53 Results - Labs CBC & Chem 7: 04/18/22 03:03 04/18/22 03:03 Labs: Laboratory Last Values WBC 14.2 K/mm3 (4.5-11.0) H 04/18/22 03:03 RBC 4.03 M/mm3 (3.65-5.03) 04/18/22 03:03 Hgb 9.0 gm/dl (10.1-14.3) L 04/18/22 03:03 Hct 30.3 % (30.3-42.9) 04/18/22 03:03 MCV 75 fl (79-97) L 04/18/22 03:03 MCH 22 pg (28-32) L 04/18/22 03:03 MCHC 30 % (30-34) 04/18/22 03:03 RDW 21.4 % (13.2-15.2) H 04/18/22 03:03 Plt Count 306 K/mm3 (140-440) 04/18/22 03:03 Sodium 141 mmol/L (137-145) 04/18/22 03:03 Potassium 4.4 mmol/L (3.6-5.0) 04/18/22 03:03 Chloride 106.1 mmol/L (98-107) 04/18/22 03:03 Carbon Dioxide 21 mmol/L (22-30) L 04/18/22 03:03 Anion Gap 18 mmol/L 04/18/22 03:03 BUN 11 mg/dL (7-17) 04/18/22 03:03 Creatinine 0.8 mg/dL (0.6-1.2) 04/18/22 03:03 Estimated GFR > 60 ml/min 04/18/22 03:03 BUN/Creatinine Ratio 14 % 04/18/22 03:03 Glucose 161 mg/dL (65-100) H 04/18/22 03:03 Lactic Acid 2.00 mmol/L (0.7-2.0) 04/18/22 06:40 Calcium 9.5 mg/dL (8.4-10.2) 04/18/22 03:03 Magnesium 1.80 mg/dL (1.7-2.3) 04/18/22 03:03 Total Bilirubin < 0.20 mg/dL (0.1-1.2) 04/18/22 03:03 AST 16 units/L (5-40) 04/18/22 03:03 ALT 14 units/L (7-56) 04/18/22 03:03 Alkaline Phosphatase 91 units/L (35-129) 04/18/22 03:03 Total Creatine Kinase 139 units/L (30-135) H 04/18/22 03:03 Total Protein 7.7 g/dL (6.3-8.2) 04/18/22 03:03 Albumin 4.7 g/dL (3.9-5) 04/18/22 03:03 Albumin/Globulin Ratio 1.6 % 04/18/22 03:03 Urine RBC (Auto) < 1.0 /HPF (0.0-6.0) 04/18/22 Unknown U Epithel Cells (Auto) 1.0 /HPF (0-13.0) 04/18/22 Unknown Salicylates < 0.3 mg/dL (2.8-20.0) L 04/18/22 03:03 Urine Methadone Screen Negative 04/18/22 Unknown Acetaminophen 5.0 ug/mL (10.0-30.0) L 04/18/22 03:03 Ur Barbiturates Screen Negative 04/18/22 Unknown Ur Phencyclidine Scrn Negative 04/18/22 Unknown Ur Amphetamines Screen Negative 04/18/22 Unknown U Benzodiazepines Scrn Negative 04/18/22 Unknown Urine Cocaine Screen Negative 04/18/22 Unknown U Marijuana (THC) Screen Negative 04/18/22 Unknown Drugs of Abuse Note Disclamer 04/18/22 Unknown Plasma/Serum Alcohol < 0.01 % (0-0.07) 04/18/22 03:03 Assessment and Plan Assessment and plan: Patient is a 46-year-old female with primary medical history of multiple repeated seizure disorder, hyperlipidemia, lupus, medical noncompliance, depression, insomnia, obesity, anxiety, anemia, lumbar herniation, tubal ligation and anterior cervical fusion in August 2020 who presents to the hospital following a seizure episode that was witnessed by family member. Patient was transported to the ER confused and repeatedly says that she is postictal. In the ED examination she was not sure what year it was. She was recommended for admission for further management. I could not obtain any information from her although she tries to speak but continues to repeat the same word and has prolonged thought process while trying to complete a sentence. Further information obtained by review of records. There is no documentation fever or difficulty breathing nausea vomiting. Unfortunately no family members at bedside. It appears she has been on multiple medication and review of her previous neurology evaluation here in the hospital. And also during her last hospitalization had left AMA. At this point I am unclear what medication she actually takes at home. Called house number daughter and also ([phone]) and also son's number ([phone]); I did leave a message but no one pick out hand to provide information. Imaging studies including CT of the head in the ER did not show any acute abnormality Seizures with status epilepticus Acute metabolic encephalopathy Morbid obesity BMI 34.3 Leukocytosis likely stress reaction Lactic acidosis Systemic inflammatory response syndrome without organ dysfunction Anemia of chronic disease stable Noncompliance with associated polypharmacy Rheumatoid arthritis on methotrexate weekly and prednisone Plan Discussed with ED physician will admit to [facility] with remote telemetry While there is concerns for conversion disorder we will continue antiseizure medications and try to obtain accurate history by understanding when she gets her medications unmolested with field and also if she does have an established primary neurologist. Neurology consult Aspiration precaution Gentle hydration Repeat lactic acid level and CBC in a.m. and also check creatinine kinase in a.m. as patient did have a mild elevation noted. Fall precaution We will avoid any other sedative pain medication at this time DVT and GI prophylaxis Resume appropriate home medications we will not proceed with any MRI scan at this time unless otherwise recommended by neurology. I did review prior records during her previous admission per the neurologist the patient was " -Hx of seizure for long time she was tried on multiple medications by her physician at [facility] -Sudden stop of Klonopin 2 days ago {she been on it for 16ys}--possibly trigger her seizure -EEG -Keppra 1500 mg IvBID -trileptal 600 mg BID -Klonpine0.5 mg BID -neurontine 400 mg tid -Brain MRI was done 2 months ago is unremarkable--wo gd -- will repeat with Gd -Seizure precaution no driving-- follow up with neurology " Critical care time 90 minutes including half the time spent on care coordination and planning for this patient. Advance Directives: Yes (Full code) Plan of care discussed with patient/family: Yes
[2022-04-18 08:57] LABS: Opiate Screen,Urine Positive
[2022-04-18 09:15] LABS: Color,Urine Yellow (Yellow); RBC,Urine < 1.0 /HPF (0.0-6.0)
[2022-04-18] MEDS ORDERED: metHOTREXate sodium 125 MG/5 ML SYRINGE IM SCH (10:00)
[2022-04-18] MEDS ORDERED: NON-FORMULARY EACH (Venlafaxine Hcl [Effexor Xr] 150 MG Cap.Er.24h) PO SCH (10:00)
[2022-04-18] MEDS ORDERED: ACETAMINOPHEN 325 MG TAB PO PRN (10:00)
[2022-04-18] MEDS ORDERED: ALBUTEROL 2.5 MG/3 ML NEBU IH PRN (11:00)
[2022-04-18] MEDS: FOLIC ACID 1 MG TAB PO SCH ×2 (11:12→21:38)
[2022-04-18] MEDS: HEPARIN 5,000 UNIT/1 ML VIAL SUB-Q SCH ×2 (11:12→21:41)
[2022-04-18] MEDS: clonazePAM 0.5 MG TAB PO SCH ×2 (11:12→21:38)
[2022-04-18] MEDS: FAMOTIDINE 20 MG/2 ML INJ IV SCH ×2 (11:12→21:38)
[2022-04-18] MEDS: CHOLECALCIFEROL (VIT D3) 1000 UNIT (25 mcg) TAB PO SCH (11:13)
[2022-04-18] MEDS ORDERED: ONDANSETRON 4 MG/2 ML INJ IV PRN (12:00)
[2022-04-18] MEDS ORDERED: METOCLOPRAMIDE 10 MG/2 ML INJ IV PRN (12:00)
[2022-04-18] MEDS: levETIRAcetam 1,000 MG in DEXTROSE 5% IN WATER 100 ML IV SCH ×2 (12:09→22:50)
[2022-04-18] MEDS: OXcarbazepine 300 MG TAB PO SCH ×2 (12:11→21:37)
--- NOTE | 2022-04-18 13:04 | Consultation ---
History of Present Illness - Reason for Consult Consult date: 04/18/22 Reason for consult: Hx of depression - History of Present Psychiatric Illness The patient was seen today. She says she was with her mom when her mom says she started having a seizure. The patient says she has a history of epilepsy, depression and anxiety. She says "why they have me seeing psych. I'm not crazy. I'm here for seizures." The patient says "but sometimes when I'm postictal I be confused, I guess." The patient says she takes cymbalta and remeron and has been fine since she started the cymbalta. She denies SI/HI or hallucinations. She denies a past attempt of suicide, but states she's had thoughts in the past and has herself admitted before. The patient denies any illicit drug use. She says she has a medical marijuana card, but doesn't really use it. 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 History of Abuse: Denies Legal History: Denies ROS: Constitutional: Negative for weight loss ENT: Negative for stridor Respiratory: Negative for cough or hemoptysis All other systems reviewed and are negative MENTAL STATUS General Appearance and Behavior: age appropriate, calm, and cooperative Psychomotor Behavior: within normal limits Mood: depressed Affect and affective range: flat Thought Process: goal directed Thought Content: within reality Speech: Normal volume and Regular rate and rhythm Suicidal Ideation: Yes Homicidal Ideation: Denies HI Hallucinations: Denies Impulse Control: Poor Insight and Judgment: Limited Memory: Limited Attention: attentive Orientation: alert Assessment Hx of Major Depressive Disorder and anxiety Treatment Plan Restarted home Cymbalta 60mg po daily Medical: per primary Sitter: defer to primary Disposition: Do not recommend acute psychiatric inpatient treatment Will sign off. Thanks. Case staffed by Dr. Wynn Medications and Allergies Allergies Allergy/AdvReac Type Severity Reaction Status Date / Time Iodinated Contrast Media Allergy Anaphylaxis Verified 09/20/21 08:38 [Iodinated Contrast Media - IV Dye] NSAIDS (Non-Steroidal Allergy Unknown Verified 09/20/21 08:38 Anti-Inflamma Sulfa (Sulfonamide Allergy Hives Verified 09/20/21 08:38 Antibiotics) hydroxychloroquine sulfate AdvReac TEMP. Verified 09/20/21 08:38 [From Plaquenil] BLINDNESS tramadol AdvReac Unknown Verified 12/15/21 00:28 Home Medications Medication Instructions Recorded Confirmed Last Taken Type Mirtazapine 7.5 mg PO QHS 03/14/17 12/16/21 09/18/21 21:00 History Venlafaxine HCl [Effexor Xr] 150 mg PO QDAY 03/14/17 12/16/21 09/19/21 History Albuterol Sulfate [Proventil Hfa] 2 puff IH TID 09/20/21 12/16/21 09/19/21 History AtorvaSTATin [Lipitor] 40 mg PO QHS 30 Days #30 tablet 09/20/21 12/16/21 Unknown Rx Cholecalciferol Vit D3 [Vitamin D3 1,000 unit PO QDAY 09/20/21 12/16/21 09/19/21 History 1,000 UNIT TAB] Dicyclomine [Bentyl] 10 mg PO TID 09/20/21 12/16/21 Unknown History Folic Acid [Folvite] 2 mg PO BID 09/20/21 12/16/21 09/19/21 09:00 History Gabapentin 400 mg PO TID 30 Days #90 capsule 09/20/21 12/16/21 Unknown Rx Iron Fum,Ps/Folic/Bcomp,C No.9 1 each PO QDAY 09/20/21 12/16/21 09/19/21 History [Integra Plus Capsule] Methotrexate Sodium [metHOTREXate] 15 mg IM QWEEK 09/20/21 12/16/21 Unknown History Omeprazole 40 mg PO QDAY 09/20/21 12/16/21 09/19/21 History Ondansetron [Zofran ODT TAB] 8 mg PO Q8HR 09/20/21 12/16/21 09/19/21 History predniSONE 10 mg PO QDAY 09/20/21 12/16/21 09/19/21 History Bacitracin/Pramoxine/Aloe Vera 1 applicatio TP TID #50 g 12/15/21 12/16/21 Unknown Rx [Bacitraycin Plus Ointment] Silver Sulfadiazine [Silvadene] 400 gm TP Q6H #50 12/15/21 12/16/21 Unknown Rx clonazePAM [KlonoPIN] 0.5 mg PO BID #12 tab 12/15/21 12/16/21 Unknown Rx levETIRAcetam [Keppra TAB] 750 mg PO BID #60 tab 12/15/21 12/16/21 Unknown Rx Butalb/Acetamin/Caff 50-325-40 2 tab PO Q8HR PRN #20 tablet 12/16/21 Unknown Rx [Fioricet 50-325-40] OXcarbazepine [Trileptal] 600 mg PO BID 30 Days #120 tablet 01/26/22 Unknown Rx Potassium Chloride [K-Dur] 20 meq PO BID #60 tab 01/26/22 Unknown Rx levETIRAcetam [Keppra TAB] 1,000 mg PO BID 30 Days #120 tablet 01/26/22 Unknown Rx Active Meds: Active Medications Acetaminophen (Acetaminophen 325 Mg Tab) 650 mg PO Q4H PRN PRN Reason: Pain MILD(1-3)/Fever >100.5/FRIEND Acetaminophen/Butalbital/Caffeine (Butalb/Acetaminophen/Caffeine Tab) 2 tab PO Q8H PRN PRN Reason: Headache Albuterol (Albuterol 2.5 Mg/3 Ml Nebu) 2.5 mg IH Q3HRT PRN PRN Reason: Shortness Of Breath Atorvastatin Calcium (Atorvastatin 40 Mg Tab) 40 mg PO QHS [facility] Bacitracin (Bacitracin Zinc Oint 28.4 Gm) 1 applic TP TID [facility] Cholecalciferol (Cholecalciferol (Vit D3) 1000 Unit (25 Mcg) Tab) 1,000 unit PO QDAY [facility] Last Admin: 04/18/22 11:13 Dose: 1,000 unit Clonazepam (Clonazepam 0.5 Mg Tab) 0.5 mg PO BID [facility] Last Admin: 04/18/22 11:12 Dose: 0.5 mg Dicyclomine HCl (Dicyclomine 10 Mg Cap) 10 mg PO TID [facility] Famotidine (Famotidine 20 Mg/2 Ml Inj) 20 mg IV BID [facility] Last Admin: 04/18/22 11:12 Dose: 20 mg Folic Acid (Folic Acid 1 Mg Tab) 2 mg PO BID [facility] Last Admin: 04/18/22 11:12 Dose: 2 mg Gabapentin (Gabapentin 400 Mg Cap) 400 mg PO TID [facility] Heparin Sodium (Porcine) (Heparin 5,000 Unit/1 Ml Vial) 5,000 unit SUB-Q Q12HR [facility] Last Admin: 04/18/22 11:12 Dose: 5,000 unit Levetiracetam 1,000 mg/ (Dextrose) 110 mls @ 400 mls/hr IV Q12HR [facility] Last Admin: 04/18/22 12:09 Dose: Not Given Methotrexate (Methotrexate Sodium 125 Mg/5 Ml Syringe) 15 mg IM Sa [facility] Metoclopramide HCl (Metoclopramide 10 Mg/2 Ml Inj) 10 mg IV Q6H PRN PRN Reason: Nausea And Vomiting Mirtazapine (Mirtazapine 15 Mg Tab) 7.5 mg PO QHS [facility] Naloxone HCl (Naloxone 0.4 Mg/1 Ml Inj) 0.1 mg IV Q2MIN PRN PRN Reason: Res Rate </= 8 or 02 SAT < 92% Ondansetron HCl (Ondansetron 4 Mg/2 Ml Inj) 4 mg IV Q8H PRN PRN Reason: Nausea And Vomiting Ondansetron HCl (Ondansetron 8 Mg Odt Tab) 8 mg PO Q8HR [facility] Oxcarbazepine (Oxcarbazepine 300 Mg Tab) 600 mg PO BID [facility] Last Admin: 04/18/22 12:11 Dose: Not Given Oxycodone/Acetaminophen (Oxycodone /Acetaminophen 5-325mg Tab) 1 tab PO Q6H PRN PRN Reason: Pain, Moderate (4-6) Sodium Chloride (Sodium Chloride 0.9% 10 Ml Flush Syringe) 10 ml IV BID [facility] Last Admin: 04/18/22 12:10 Dose: 10 ml Sodium Chloride (Sodium Chloride 0.9% 10 Ml Flush Syringe) 10 ml IV PRN PRN PRN Reason: LINE FLUSH Venlafaxine HCl (Venlafaxine Xr 75 Mg Cap) 150 mg PO QDAY [facility] Mental Status Exam - Vital signs Last Vital Signs Temp 98.0 F 04/18/22 02:33 Pulse 95 H 04/18/22 07:53 Resp 16 04/18/22 07:53 BP 142/84 04/18/22 07:53 Pulse Ox 99 04/18/22 07:53 Results Result Diagrams: 04/18/22 03:03 04/18/22 03:03 Abnormal lab results 04/18/22 04/18/22 04/18/22 Range/Units 03:03 03:03 03:03 WBC 14.2 H (4.5-11.0) K/mm3 Hgb 9.0 L (10.1-14.3) gm/dl MCV 75 L (79-97) fl MCH 22 L (28-32) pg RDW 21.4 H (13.2-15.2) % Carbon Dioxide 21 L (22-30) mmol/L Glucose 161 H (65-100) mg/dL Lactic Acid 4.30 H* (0.7-2.0) mmol/L Total Creatine Kinase 139 H (30-135) units/L Salicylates (2.8-20.0) mg/dL Acetaminophen (10.0-30.0) ug/mL 04/18/22 04/18/22 Range/Units 03:03 03:03 WBC (4.5-11.0) K/mm3 Hgb (10.1-14.3) gm/dl MCV (79-97) fl MCH (28-32) pg RDW (13.2-15.2) % Carbon Dioxide (22-30) mmol/L Glucose (65-100) mg/dL Lactic Acid (0.7-2.0) mmol/L Total Creatine Kinase (30-135) units/L Salicylates < 0.3 L (2.8-20.0) mg/dL Acetaminophen 5.0 L (10.0-30.0) ug/mL All other labs normal.
[2022-04-18] MEDS ORDERED: ALOE VERA TP SCH (14:00)
[2022-04-18] MEDS ORDERED: BACITRACIN TP SCH (14:00)
[2022-04-18] MEDS ORDERED: [UNRECOGNIZED DRUG - OTHER] TP SCH (14:00)
[2022-04-18] MEDS ORDERED: PRAMOXINE TP SCH (14:00)
[2022-04-18] MEDS: ONDANSETRON 8 MG ODT TAB PO SCH ×2 (15:06→21:40)
[2022-04-18] MEDS: BACITRACIN ZINC OINT 28.4 GM TP SCH ×2 (15:06→21:40)
[2022-04-18] MEDS: DULoxetine 30 MG CAP PO SCH (15:06)
[2022-04-18] MEDS: DICYCLOMINE 10 MG CAP PO SCH ×2 (15:06→22:50)
[2022-04-18] MEDS: GABAPENTIN 400 MG CAP PO SCH ×2 (15:06→21:38)
[2022-04-18] MEDS: BUTALB/ACETAMINOPHEN/CAFFEINE TAB PO PRN (17:39)
[2022-04-18] MEDS: oxyCODONE /ACETAMINOPHEN 5-325MG TAB PO PRN (17:40)
--- NOTE | 2022-04-18 18:14 | Electrocardiograph Report ---
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
[2022-04-18] MEDS ORDERED: LORazepam 2 MG/ML VIAL IV PRN (18:29)
[2022-04-18] MEDS ORDERED: WATER FOR INJ Sterile (PF) 10 ML IM SCH (19:00)
[2022-04-18] MEDS ORDERED: ZIPRASIDONE MESYLATE 20 MG VIAL IM ONE (19:00)
[2022-04-18] MEDS: MIRTAZAPINE 15 MG TAB PO SCH (21:38)
[2022-04-18] MEDS: MORPHINE 15 MG ER TAB PO SCH (21:39)
[2022-04-19] MEDS: oxyCODONE /ACETAMINOPHEN 5-325MG TAB PO PRN ×3 (03:03→17:22)
[2022-04-19] MEDS ORDERED: ONDANSETRON 4 MG/2 ML INJ IV PRN (04:40)
[2022-04-19] MEDS: BUTALB/ACETAMINOPHEN/CAFFEINE TAB PO PRN (04:59)
[2022-04-19] MEDS: ONDANSETRON 8 MG ODT TAB PO SCH ×3 (06:56→22:07)
[2022-04-19] MEDS: FAMOTIDINE 20 MG/2 ML INJ IV SCH (09:53)
[2022-04-19] MEDS: DULoxetine 30 MG CAP PO SCH (09:53)
[2022-04-19] MEDS: HEPARIN 5,000 UNIT/1 ML VIAL SUB-Q SCH ×2 (09:53→22:06)
[2022-04-19] MEDS: clonazePAM 0.5 MG TAB PO SCH ×2 (09:54→22:00)
[2022-04-19] MEDS: GABAPENTIN 400 MG CAP PO SCH ×3 (09:54→22:00)
[2022-04-19] MEDS: CHOLECALCIFEROL (VIT D3) 1000 UNIT (25 mcg) TAB PO SCH (09:54)
[2022-04-19] MEDS: DICYCLOMINE 10 MG CAP PO SCH ×3 (09:54→22:00)
[2022-04-19] MEDS: OXcarbazepine 300 MG TAB PO SCH ×2 (09:54→22:01)
[2022-04-19] MEDS: FOLIC ACID 1 MG TAB PO SCH ×2 (09:55→21:38)
[2022-04-19] MEDS: MORPHINE 15 MG ER TAB PO SCH ×2 (09:56→21:59)
[2022-04-19] MEDS: VENLAFAXINE XR 75 MG CAP PO SCH (10:06)
[2022-04-19] MEDS: BACITRACIN ZINC OINT 28.4 GM TP SCH ×3 (10:07→21:38)
[2022-04-19] MEDS: BUDESONIDE 0.5 MG/2 ML NEBU IH SCH ×2 (11:00→21:00)
[2022-04-19] MEDS: levETIRAcetam 1,000 MG in DEXTROSE 5% IN WATER 100 ML IV SCH (11:32)
[2022-04-19] MEDS: ARFORMOTEROL 15 MCG/2 ML NEBU IH SCH ×2 (12:04→21:00)
--- NOTE | 2022-04-19 12:49 | Discharge Summary ---
Providers - Providers Date of Admission: 04/18/22 08:43 Date of discharge: 04/19/22 Attending physician: PATRICIA JONES 04/18/22 08:43 Consult to Physician [CONS] Routine Comment: Consulting Provider: NKECHI HERNÁNDEZ Physician Instructions: Reason For Exam: seizure 04/18/22 08:48 Consult to Mental Health [CONS] Routine Reason For Exam: psychosis 04/19/22 11:47 Physical Therapy Evaluation and Treat [CONS] Routine Comment: Reason For Exam: evaluate her walking after seizure Primary care physician: DIRECTOR OF [employer]PORATE [employer]ATEGY Hospitalization Condition: Fair Hospital course: The patient is a 46-year-old female with a history of lupus and seizure disorder present with chief complaint of breakthrough seizure. Patient states she has been compliant with her Keppra had a episode of seizure at home. Patient has multiple admission in the past for the same reason. Patient was seen and examined and admitted to the hospital for further evaluation. She was evaluated by CT head which did not show any acute change. Patient stated that she did not take her anxiety medicine Klonopin 2 days which would be a trigger for seizure. Patient was also evaluated by psychiatry to continue her home meds. Patient was recommended to continue her home meds and to be compliant with her medications. She was discharged home in stable condition with outpatient follow-up. Discharge planning management was discussed with the patient with the nurse and also by phone with her son. Disposition: 01 HOME / SELF CARE / HOMELESS Final Discharge Diagnosis (Prints w/discharge instructions): -- breakthrough seizure. -- Depression and anxiety. -- Lupus. -- Reactive airway disease. --Obesity Time spent for discharge: 34 minutes Core Measure Documentation - Palliative Care Palliative Care/ Comfort Measures: Not Applicable - Core Measures Any of the following diagnoses?: none Exam - Constitutional Vitals: Temp Pulse Resp BP Pulse Ox 98.1 F 90 18 128/72 98 04/19/22 10:31 04/19/22 11:00 04/19/22 11:00 04/19/22 10:31 04/19/22 10:38 Plan Activity: advance as tolerated Weight Bearing Status: Weight Bear as Tolerated Diet: low fat, low salt Follow up with: LEROY LUNDY MD [Primary Care Provider] - 3-5 Days MITCHELL CASTELLANO MD [Staff Physician] - 7 Days
[2022-04-19 14:52] LABS: Basophils % (Auto) 0.2 % (0.0-1.8); Eosinophils % (Auto) 0.2 % (0.0-4.3); Lymphocytes # (Auto) 2.7 K/mm3 (1.2-5.4); Lymphocytes % (Auto) 28.3 % (13.4-35.0); Mean Corpuscular HGB Conc 29 % (30-34); Mean Corpuscular Volume 75 fl (79-97); Monocytes # (Auto) 0.4 K/mm3 (0.0-0.8); Monocytes % (Auto) 3.9 % (0.0-7.3); Platelet Count 304 K/mm3 (140-440); Red Blood Count 3.98 M/mm3 (3.65-5.03)
[2022-04-19 14:53] LABS: Hematocrit 29.8 % (30.3-42.9); Hemoglobin 8.8 gm/dl (10.1-14.3); Red Cell Distribution Width 21.1 % (13.2-15.2)
[2022-04-19 15:17] LABS: BUN/Creatinine Ratio 22; Blood Urea Nitrogen 20 mg/dL (7-17); Calcium 8.8 mg/dL (8.4-10.2); Hemolysis Index 0
--- NOTE | 2022-04-19 21:23 | Cat Scan Report ---
CT head/brain wo con INDICATION: patient fell and hit head.. TECHNIQUE: CT head. All CT scans at this location are performed using CT dose reduction for ALARA by means of automated exposure control. COMPARISON: 04/18/2022 FINDINGS: Intracranial: Wray-white matter differentiation is maintained. No intracranial hemorrhage. No extra a xial collection. No hydrocephalus. No herniation. Sinuses: Paranasal sinuses and mastoid air cells are essentially clear. Orbits: Globes are intact. Calvarium: No acute fracture. IMPRESSION: 1. No acute intracranial abnormality. Signer Name: Jhonatan Martino MD Signed: 04/19/2022 9:18 PM Workstation Name: [id number]
[2022-04-19] MEDS: levETIRAcetam 500 MG TAB PO SCH (21:59)
[2022-04-19] MEDS ORDERED: CLONAZEPAM PO SCH (22:00)
[2022-04-19] MEDS ORDERED: RAPDIS PO SCH (22:00)
[2022-04-19] MEDS ORDERED: BUDESONIDE FORMOTEROL IH SCH (22:00)
[2022-04-19] MEDS: MIRTAZAPINE 15 MG TAB PO SCH (22:00)
[2022-04-19] MEDS: FAMOTIDINE 20 MG TAB PO SCH (22:07)
--- NOTE | 2022-04-19 23:37 | Cat Scan Report ---
CT ABDOMEN AND PELVIS WITHOUT CONTRAST INDICATION / CLINICAL INFORMATION: pt. fell. Abdominal pain after fall TECHNIQUE: Axial CT images were obtained through the abdomen and pelvis without IV contrast. All CT scans at is location are performed using CT dose reduction for ALARA by means of automated exposure control. E xam is somewhat limited secondary to streak artifact from indwelling peritoneum. COMPARISON: None available. FINDINGS: LOWER CHEST: No significant abnormality. LIVER: No significant abnormality. GALLBLADDER: Removed. BILE DUCTS: No significant abnormality. PANCREAS: No significant abnormality. SPLEEN: No significant abnormality. ADRENALS: No significant abnormality. RIGHT KIDNEY and URETER: No significant abnormality. LEFT KIDNEY and URETER: No significant abnormality. STOMACH and SMALL BOWEL: No significant abnormality. COLON: Some retained high density contrast material/barium limits evaluation of the mid and right abd omen secondary to streak artifact.. APPENDIX: No significant abnormality. PERITONEUM: No free fluid. No free air. No fluid collection. LYMPH NODES: No significant adenopathy. AORTA and ARTERIES: No significant abnormality. IVC and VEINS: No significant abnormality. URINARY BLADDER: No significant abnormality. REPRODUCTIVE ORGANS: No significant abnormality. ADDITIONAL FINDINGS: None. SKELETAL SYSTEM: No significant abnormality. IMPRESSION: No acute intra-abdominal abnormality within the limits of the exam. Signer Name: Yakov Curry MD Signed: 04/19/2022 11:33 PM Workstation Name: [id number]
[2022-04-20] MEDS: oxyCODONE /ACETAMINOPHEN 5-325MG TAB PO PRN ×2 (01:02→07:21)
[2022-04-20 04:32] VITALS: BP 124/70
[2022-04-20] MEDS: ONDANSETRON 8 MG ODT TAB PO SCH (05:39)
[2022-04-20] MEDS: BUDESONIDE 0.5 MG/2 ML NEBU IH SCH (08:01)
[2022-04-20] MEDS: ARFORMOTEROL 15 MCG/2 ML NEBU IH SCH (08:01)
[2022-04-20] MEDS: DULoxetine 30 MG CAP PO SCH (09:38)
[2022-04-20] MEDS: levETIRAcetam 500 MG TAB PO SCH (09:38)
[2022-04-20] MEDS: FOLIC ACID 1 MG TAB PO SCH (09:38)
[2022-04-20] MEDS: MORPHINE 15 MG ER TAB PO SCH (09:39)
[2022-04-20] MEDS: OXcarbazepine 300 MG TAB PO SCH (09:39)
[2022-04-20] MEDS: GABAPENTIN 400 MG CAP PO SCH (09:39)
[2022-04-20] MEDS: FAMOTIDINE 20 MG TAB PO SCH (09:39)
[2022-04-20] MEDS: clonazePAM 0.5 MG TAB PO SCH (09:39)
[2022-04-20] MEDS: CHOLECALCIFEROL (VIT D3) 1000 UNIT (25 mcg) TAB PO SCH (09:39)
[2022-04-20] MEDS: DICYCLOMINE 10 MG CAP PO SCH (09:40)
[2022-04-20] MEDS: VENLAFAXINE XR 75 MG CAP PO SCH (09:40)
[2022-04-20] MEDS: HEPARIN 5,000 UNIT/1 ML VIAL SUB-Q SCH (09:44)
[2022-04-20] MEDS: BACITRACIN ZINC OINT 28.4 GM TP SCH (09:49)
--- NOTE | 2022-04-20 10:14 | Event Note ---
Date: 04/20/22 Per RN patient had a fall yesterday evening dialysis discharge was on hold. Patient was further evaluated with the CT head and CT abdomen pelvis: Test results were normal and no abnormality found Patient vitals and lab work noted and stable She was discharged today in stable condition with outpatient follow-up.
[2022-04-21] MEDS ORDERED: metHOTREXate sodium 125 MG/5 ML SYRINGE IM SCH (13:00)
== END 2022-04-20 09:52 | disposition home or self-care (01) ==
LOC: ED 01:54 → 3A 08:43
PROVIDERS: ADMIT Internal Medicine; ATTEND Internal Medicine
DX: R56.9 Unspecified convulsions (principal); R65.10 Systemic inflammatory response syndrome (SIRS) of non-infectious origin without acute organ dysfunction; R53.83 Other fatigue; G93.41 Metabolic encephalopathy; E66.01 Morbid (severe) obesity due to excess calories; D72.829 Elevated white blood cell count, unspecified; D64.9 Anemia, unspecified; M32.9 Systemic lupus erythematosus, unspecified; M06.9 Rheumatoid arthritis, unspecified; F41.9 Anxiety disorder, unspecified; F32.9 Major depressive disorder, single episode, unspecified; E87.2 Acidosis; Z91.19 Patient's noncompliance with other medical treatment and regimen; Z98.51 Tubal ligation status; Z79.899 Other long term (current) drug therapy; Z98.890 Other specified postprocedural states; Z68.34 Body mass index [BMI] 34.0-34.9, adult
CPT/HCPCS: 36415; 70450; 71045; 74176; 80048; 80053; 80177; 80307; 81001; 82140; 82550; 83735; 85025; 85027; 93005; 94640; 94760; 96365; 96366; 96372; 96375; 96376; 97161; 99285; G0378; J1644; J1953; J2405; J3486; J3490; J7060; Q0162; 80320; G0480

== ENCOUNTER 2022-04-26 01:32 | Emergency (ER) | payer OTHER ==
[2022-04-26] MEDS ORDERED: SODIUM CHLORIDE 0.9% 1000 ML 1,000 ML IV ONE (02:30)
[2022-04-26] MEDS ORDERED: levETIRAcetam 1000 MG/NS 0.75% 1,000 MG/100 ML BAG IV ONE (02:30)
--- NOTE | 2022-04-26 02:30 | Emergency Department Report ---
ED Seizure HPI - General Chief Complaint: Seizure Stated Complaint: AMS FOLLING SZ Time Seen by Provider: 04/26/22 01:40 Source: family, EMS Mode of arrival: Stretcher Limitations: No Limitations - History of Present Illness Initial Comments: 46-year-old female with a history of seizure who came in with an episode tonight currently postictal. Patient is here with her son who was giving her the history. Patient was recently discharged from [place] a week or 2 ago for the same reason. Patient was reported with a fall s/p seizure. She is not curre ntly taking any blood thinner. No fever or chills reported. No other modifying or associated factors reported. MD Complaint: seizure - Related Data Home Medications Medication Instructions Recorded Confirmed Last Taken Mirtazapine 7.5 mg PO QHS 03/14/17 04/18/22 09/18/21 21:00 Venlafaxine HCl [Effexor Xr] 150 mg PO QDAY 03/14/17 04/18/22 09/19/21 Albuterol Sulfate [Proventil Hfa] 2 puff IH TID 09/20/21 04/18/22 09/19/21 Cholecalciferol Vit D3 [Vitamin D3 1,000 unit PO QDAY 09/20/21 04/18/22 09/19/21 1,000 UNIT TAB] Dicyclomine [Bentyl] 10 mg PO TID 09/20/21 04/18/22 Unknown Folic Acid [Folvite] 2 mg PO BID 09/20/21 04/18/22 09/19/21 09:00 Iron Fum,Ps/Folic/Bcomp,C No.9 1 each PO QDAY 09/20/21 04/18/22 09/19/21 [Integra Plus Capsule] Methotrexate Sodium [metHOTREXate] 15 mg IM QWEEK 09/20/21 04/18/22 Unknown Omeprazole 40 mg PO QDAY 09/20/21 04/18/22 09/19/21 Ondansetron [Zofran ODT TAB] 8 mg PO Q8HR 09/20/21 04/18/22 09/19/21 predniSONE 10 mg PO QDAY 09/20/21 04/18/22 09/19/21 Budesonide-Formoterol 160-4.5 160 mcg IH BID 04/18/22 04/18/22 Unknown DULoxetine [Cymbalta] 60 mg PO QDAY 04/18/22 04/18/22 Unknown Montelukast [Singulair] 10 mg PO QPM 04/18/22 04/18/22 Unknown Morphine [Morphine TAB] 15 mg PO Q12HR 04/18/22 04/18/22 Unknown Multivitamin [Multiple Vitamins] 1 each PO ONCE 04/18/22 04/18/22 Unknown Previous Rx's Medication Instructions Recorded Last Taken Type AtorvaSTATin [Lipitor] 40 mg PO QHS 30 Days #30 tablet 09/20/21 Unknown Rx Gabapentin 400 mg PO TID 30 Days #90 capsule 09/20/21 Unknown Rx Bacitracin/Pramoxine/Aloe Vera 1 applicatio TP TID #50 g 12/15/21 Unknown Rx [Bacitraycin Plus Ointment] Silver Sulfadiazine [Silvadene] 400 gm TP Q6H #50 12/15/21 Unknown Rx clonazePAM [KlonoPIN] 0.5 mg PO BID #12 tab 12/15/21 Unknown Rx Butalb/Acetamin/Caff 50-325-40 2 tab PO Q8HR PRN #20 tablet 12/16/21 Unknown Rx [Fioricet 50-325-40] OXcarbazepine [Trileptal] 600 mg PO BID 30 Days #120 tablet 01/26/22 Unknown Rx Potassium Chloride [K-Dur] 20 meq PO BID #60 tab 01/26/22 Unknown Rx levETIRAcetam [Keppra TAB] 1,000 mg PO BID 30 Days #120 tablet 01/26/22 Unknown Rx Allergies Allergy/AdvReac Type Severity Reaction Status Date / Time Iodinated Contrast Media Allergy Anaphylaxis Verified 09/20/21 08:38 [Iodinated Contrast Media - IV Dye] NSAIDS (Non-Steroidal Allergy Unknown Verified 09/20/21 08:38 Anti-Inflamma Sulfa (Sulfonamide Allergy Hives Verified 09/20/21 08:38 Antibiotics) hydroxychloroquine sulfate AdvReac TEMP. Verified 09/20/21 08:38 [From Plaquenil] BLINDNESS tramadol AdvReac Unknown Verified 12/15/21 00:28 ED Review of Systems ROS: Stated complaint: AMS FOLLING SZ Other details as noted in HPI Comment: All other systems reviewed and negative Neurological: other (Seizure) ED Past Medical Hx - Past Medical History Hx Congestive Heart Failure: No Hx Diabetes: No Hx Renal Disease: Yes Hx Arthritis: Yes Hx Seizures: Yes Hx Psychiatric Treatment: Yes (DEPRESSION/INSOMNIA) Hx Asthma: No Hx COPD: No Hx HIV: No Additional medical history: LUPUS. LUMBAR HERNIATION. 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 ANEMIA. INSOMNIA, ANXIETY - Surgical History Hx Cholecystectomy: Yes Additional Surgical History: TUBAL LIGATION. LUNG BIOPSY. August 2020 anterior cervical fusion - Social History Smoking Status: Unknown if ever smoked - Medications Home Medications: Home Medications Medication Instructions Recorded Confirmed Last Taken Type Mirtazapine 7.5 mg PO QHS 03/14/17 04/18/22 09/18/21 21:00 History Venlafaxine HCl [Effexor Xr] 150 mg PO QDAY 03/14/17 04/18/22 09/19/21 History Albuterol Sulfate [Proventil Hfa] 2 puff IH TID 09/20/21 04/18/22 09/19/21 History AtorvaSTATin [Lipitor] 40 mg PO QHS 30 Days #30 tablet 09/20/21 04/18/22 Unknown Rx Cholecalciferol Vit D3 [Vitamin D3 1,000 unit PO QDAY 09/20/21 04/18/22 09/19/21 History 1,000 UNIT TAB] Dicyclomine [Bentyl] 10 mg PO TID 09/20/21 04/18/22 Unknown History Folic Acid [Folvite] 2 mg PO BID 09/20/21 04/18/22 09/19/21 09:00 History Gabapentin 400 mg PO TID 30 Days #90 capsule 09/20/21 04/18/22 Unknown Rx Iron Fum,Ps/Folic/Bcomp,C No.9 1 each PO QDAY 09/20/21 04/18/22 09/19/21 History [Integra Plus Capsule] Methotrexate Sodium [metHOTREXate] 15 mg IM QWEEK 09/20/21 04/18/22 Unknown Hi story Omeprazole 40 mg PO QDAY 09/20/21 04/18/22 09/19/21 History Ondansetron [Zofran ODT TAB] 8 mg PO Q8HR 09/20/21 04/18/22 09/19/21 History predniSONE 10 mg PO QDAY 09/20/21 04/18/22 09/19/21 History Bacitracin/Pramoxine/Aloe Vera 1 applicatio TP TID #50 g 12/15/21 04/18/22 Unknown Rx [Bacitraycin Plus Ointment] Silver Sulfadiazine [Silvadene] 400 gm TP Q6H #50 12/15/21 04/18/22 Unknown Rx clonazePAM [KlonoPIN] 0.5 mg PO BID #12 tab 12/15/21 04/18/22 Unknown Rx Butalb/Acetamin/Caff 50-325-40 2 tab PO Q8HR PRN #20 tablet 12/16/21 04/18/22 Unknown Rx [Fioricet 50-325-40] OXcarbazepine [Trileptal] 600 mg PO BID 30 Days #120 tablet 01/26/22 04/18/22 Unknown Rx Potassium Chloride [K-Dur] 20 meq PO BID #60 tab 01/26/22 04/18/22 Unknown Rx levETIRAcetam [Keppra TAB] 1,000 mg PO BID 30 Days #120 tablet 01/26/22 04/18/22 Unknown Rx Budesonide-Formoterol 160-4.5 160 mcg IH BID 04/18/22 04/18/22 Unknown History DULoxetine [Cymbalta] 60 mg PO QDAY 04/18/22 04/18/22 Unknown History Montelukast [Singulair] 10 mg PO QPM 04/18/22 04/18/22 Unknown History Morphine [Morphine TAB] 15 mg PO Q12HR 04/18/22 04/18/22 Unknown History Multivitamin [Multiple Vitamins] 1 each PO ONCE 04/18/22 04/18/22 Unknown History ED Physical Exam - General Limitations: No Limitations General appearance: alert, postictal - Head Head exam: Present: atraumatic, normal inspection - Eye Eye exam: Present: normal appearance Pupils: Present: normal accommodation - ENT ENT exam: Present: normal exam, normal orophraynx, mucous membranes dry - Neck Neck exam: Present: normal inspection, full ROM. Absent: tenderness - Respiratory Respiratory exam: Present: normal lung sounds bilaterally. Absent: respiratory distress, accessory muscle use - Cardiovascular Cardiovascular Exam: Present: regular rate, normal rhythm, normal heart sounds - GI/Abdominal GI/Abdominal exam: Present: soft, normal bowel sounds. Absent: distended, tenderness - Back Exam Back exam: Present: normal inspection. Absent: tenderness - Neurological Exam Neurological exam: Present: alert, oriented X3 - Psychiatric Psychiatric exam: Present: normal affect, normal mood - Skin Skin exam: Present: warm, normal color ED Course Vital Signs 04/26/22 04/26/22 04/26/22 01:50 02:18 04:29 Temperature 98 F 98.7 F 98.3 F Pulse Rate 110 H 104 H 89 Respiratory 16 16 16 Rate Blood Pressure 141/85 Blood Pressure 140/80 141/85 127/76 [Right] O2 Sat by Pulse 99 100 100 Oximetry ED Medical Decision Making - Lab Data Result diagrams: 04/26/22 02:40 04/26/22 02:40 - EKG Data -: EKG Interpreted by Me EKG shows normal: sinus rhythm Rate: normal - EKG Data 04/26/22 05:15 Initial EKG noted to be normal sinus at a rate of [address] elevation or depression in this normal ECG. - Medical Decision Making Here with possible seizure -- but considering this patients age other differential such as stroke, myocardial infarction, hepatic encephalopathy, systemic infection with sepsis cannot be ruled out. In order to rule out those above we will go ahead and order CT scan of the brain, CBC, CMP, urinalysis, for any infectious process or electrolyte abnormality and thyroid panel for any hypo or hyper thyroidism. In the meantime we will go ahead and give immediate Keppra 1 g IV piggyback x1. Lab reviewed and noted with low H&H 8.8/ 9.8 to -8 0.2/ that seems to be chronic been going on since January 2022 visit-- Urinalysis still pending at this point--resulted to be negative for any urinary leukocytes or nitrates CT scan of the brain resulted to be within normal limits with no acute intracranial abnormality noted. Critical care attestation.: If time is entered above; I have spent that time in minutes in the direct care of this critically ill patient, excluding procedure time. ED Disposition Clinical Impression: Seizure Fall Qualifiers: Encounter type: initial encounter Qualified Code(s): W19.XXXA - Unspecified fall, initial encounter Disposition: HOME / SELF CARE / HOMELESS Is pt being admited?: No Does the pt Need Aspirin: No Condition: Stable Instructions: Seizure, Adult, [id number], Managing Non-Epileptic Seizures, Adult Additional Instructions: Continue your seizure medication as prescribed by your neurology and your primary doctor Increase your daily fluid to help your hydration Please do not hesitate to call or return to emergency room if your symptoms worsen Please call and follow-up with your primary doctor in the next 3 to 5 days for progress Referrals: PRIMARY CARE, [Primary Care Provider] - 3-5 Days Time of Disposition: 05:17
[2022-04-26 03:07] LABS: Basophils # (Auto) 0.1 K/mm3 (0.0-0.1); Eosinophils % (Auto) 0.2 % (0.0-4.3); Hemoglobin 8.2 gm/dl (10.1-14.3); Lymphocytes # (Auto) 2.5 K/mm3 (1.2-5.4); Lymphocytes % (Auto) 18.3 % (13.4-35.0); Mean Corpuscular HGB Conc 30 % (30-34); Mean Corpuscular Volume 74 fl (79-97); Monocytes % (Auto) 7.5 % (0.0-7.3); Platelet Count 189 K/mm3 (140-440); Red Blood Count 3.64 M/mm3 (3.65-5.03)
[2022-04-26 03:11] LABS: Red Cell Distribution Width 20.6 % (13.2-15.2)
[2022-04-26 03:24] LABS: Alanine Aminotransferase 24 units/L (7-56); Albumin 4.1 g/dL (3.9-5); BUN/Creatinine Ratio 20; Blood Urea Nitrogen 16 mg/dL (7-17); Calcium 8.5 mg/dL (8.4-10.2); Hemolysis Index 20
--- NOTE | 2022-04-26 03:27 | Cat Scan Report ---
CT HEAD WITHOUT CONTRAST INDICATION: Seizure TECHNIQUE: All CT scans at this location are performed using CT dose reduction for ALARA by means of automated exposure control. COMPARISON: 04/19/2022 FINDINGS: BRAIN: No hemorrhage or mass effect are seen. No evidence of acute infarction is noted. ORBITS: Normal as visualized. SOFT TISSUES OF HEAD: Normal. CALVARIUM: Normal. VISUALIZED PARANASAL SINUSES AND MASTOID AIR CELLS: Clear. ADDITIONAL FINDINGS: None. IMPRESSION: No acute intracranial abnormality. Signer Name: Carlo Benitez MD Signed: 04/26/2022 3:22 AM Workstation Name: [id number]
[2022-04-26 04:30] VITALS: BP 127/76
[2022-04-26 05:03] LABS: Color,Urine Yellow (Yellow)
[2022-04-26 05:05] LABS: Mucus,Urine FEW /HPF
[2022-04-26 05:08] LABS: Amphetamine Screen,Urine Negative; Cannabinoid Screen,Urine Negative; Cocaine Screen,Urine Negative; Methadone Screen,Urine Negative
[2022-04-26 05:28] LABS: Benzodiazepines Screen,Urine Positive; Opiate Screen,Urine Positive
--- NOTE | 2022-04-26 10:58 | Electrocardiograph Report ---
[facility] Test Date: 2022-04-26 Test Time: 01:47:52 Pat Name: JOSE TRAN Department: Room: Gender: F [employer]: TECH : 1975 Requested By: ANNE MARIE DEAN Order Number: [id number] Reading MD: Lance Ludwig Measurements Intervals [place] Rate: 97 P: 45 LA: 182 QRS: 22 QRSD: 82 T: 47 QT: 328 QTc: 417 Interpretive Statements Sinus rhythm Compared to ECG 04/18/2022 08:27:00 Sinus tachycardia no longer present Electronically Signed On 04-26-2022 10:57:55 EDT by Lance Ludwig
== END 2022-04-26 05:42 | disposition home or self-care (01) ==
LOC: ED 01:32
DX: R56.9 Unspecified convulsions (principal); M19.90 Unspecified osteoarthritis, unspecified site; F32.A Depression, unspecified; N28.9 Disorder of kidney and ureter, unspecified; Z90.49 Acquired absence of other specified parts of digestive tract; Z88.6 Allergy status to analgesic agent; Z88.2 Allergy status to sulfonamides; Z91.09 Other allergy status, other than to drugs and biological substances; Z79.899 Other long term (current) drug therapy; W19.XXXA Unspecified fall, initial encounter; Y93.89 Activity, other specified; Y92.89 Other specified places as the place of occurrence of the external cause; Y99.8 Other external cause status
CPT/HCPCS: 36415; 70450; 80053; 80307; 80320; 81001; 85025; 87086; 93005; 99284; G0480